=== PATIENT | male | born 1945 | race Caucasian/White ===

== ENCOUNTER 2020-08-20 17:06 | Emergency (ER) | payer MEDICARE, OTHER ==
[2020-08-20] MEDS ORDERED: methylPREDNISolone SOD SUCCI 125 MG/2 ML VIAL IV STA (17:25)
[2020-08-20] MEDS ORDERED: ALBUTEROL HFA INHALER INHALATION STA (17:25)
--- NOTE | 2020-08-20 17:35 | ED ---
General Adult HPI - General Chief complaint: Shortness of Breath Stated complaint: sob/nausea Time Seen by Provider: 08/20/20 17:16 Source: patient, RN notes reviewed, old records reviewed Mode of arrival: wheelchair Limitations: no limitations - History of Present Illness Initial comments: 74-year-old male history of atrial fibrillation, asthma presenting with 5 days of worsening cough and dyspnea, cough productive of green sputum. Patient does have myalgias as well as nausea and vomiting. He denies fever. He denies a known exposure to coronavirus. He denies central chest pain. Denies lower extremity pain or swelling. - Related Data Previous Rx's Medication Instructions Recorded Albuterol Inhaler [Ventolin Hfa 2 puff INHALATION RT-QID #1 unit 08/20/20 Inhaler] Amoxicillin/Potassium Clav 1 tab PO Q12HR 10 Days #20 tab 08/20/20 [Augmentin 875-125 Tablet] Azithromycin [Zithromax Z-pack] 0 mg PO DIRECTED #6 tab 08/20/20 predniSONE 50 mg PO DAILY #5 tab 08/20/20 Allergies Allergy/AdvReac Type Severity Reaction Status Date / Time No Known Allergies Allergy Verified 08/20/20 17:15 Review of Systems ROS Statement: Those systems with pertinent positive or pertinent negative responses have been documented in the HPI. ROS Other: All systems not noted in ROS Statement are negative. Past Medical History Past Medical History: Atrial Fibrillation, Asthma, Diabetes Mellitus, Hyperlipidemia, Hypertension History of Any Multi-Drug Resistant Organisms: None Reported Past Surgical History: Prostate Surgery, Tonsillectomy Past Psychological History: No Psychological Hx Reported Smoking Status: Never smoker Past Alcohol Use History: None Reported Past Drug Use History: None Reported General Exam Limitations: no limitations General appearance: alert, in no apparent distress Head exam: Present: atraumatic, normocephalic Eye exam: Present: normal appearance, PERRL ENT exam: Present: normal exam Neck exam: Present: normal inspection. Absent: tenderness, meningismus Respiratory exam: Present: respiratory distress, wheezes, decreased breath sounds Cardiovascular Exam: Present: regular rate, irregular rhythm GI/Abdominal exam: Present: soft. Absent: distended, tenderness, guarding Extremities exam: Present: normal inspection, normal capillary refill. Absent: pedal edema Neurological exam: Present: alert, oriented X3, CN II-XII intact. Absent: motor sensory deficit Psychiatric exam: Present: normal affect, normal mood Skin exam: Present: warm, dry, intact. Absent: cyanosis, diaphoretic Course Vital Signs 08/20/20 17:09 Temperature 98.3 F Pulse Rate 66 Respiratory 24 Rate Blood Pressure 147/90 O2 Sat by Pulse 91 L Oximetry EKG Findings - EKG Comments: EKG Findings:: A. fib, rate is 64, QRS duration 88, QTC [address] segment elevation. Artifact on the baseline Medical Decision Making - Medical Decision Making 74-year-old year History of asthma, presenting with cough and dyspnea. Patient afebrile, stable vitals with the exception of mild hypoxia at 91%. He has diminished air entry bilaterally. Mild respiratory distress on initial e valuation. Chest x-ray, showing concern for a left sided pneumonia. He has a elevated white blood cell count 27,000, elevated CRP at 82.9. Mild lactic acid 3.0. He is given IV antibiotics, IV steroids, albuterol, IV fluids. I did initially plan to admit this patient for IV antibiotics, treatment of asthma exacerbation. Patient prefers to be discharged home. His agrees with discharge there is concern for virgilio coronavirus as the patient is currently negative for coronavirus. He's given IV antibiotics and IV steroids, he will be prescribed oral antibiotics and oral steroids as well as he will use his albuterol inhaler at home 4-6 times daily. I discussed case with Dr. Taylor who is his welding technician who will be able to see the patient on Sunday on an outpatient basis. - Lab Data Result diagrams: 08/20/20 17:27 08/20/20 17:27 Lab Results 08/20/20 08/20/20 08/20/20 Range/Units 17:27 17:27 17:27 WBC 27.4 H (3.8-10.6) k/uL RBC 4.37 (4.30-5.90) m/uL Hgb 14.8 (13.0-17.5) gm/dL Hct 44.1 (39.0-53.0) % MCV 100.7 H (80.0-100.0) fL MCH 33.8 (25.0-35.0) pg MCHC 33.5 (31.0-37.0) g/dL RDW 12.1 (11.5-15.5) % Plt Count 203 (150-450) k/uL MPV 7.8 Neutrophils % 87 % Lymphocytes % 5 % Monocytes % 5 % Eosinophils % 1 % Basophils % 1 % Neutrophils # 23.9 H (1.3-7.7) k/uL Lymphocytes # 1.5 (1.0-4.8) k/uL Monocytes # 1.4 H (0-1.0) k/uL Eosinophils # 0.2 (0-0.7) k/uL Basophils # 0.2 (0-0.2) k/uL PT 15.7 H (9.0-12.0) sec INR 1.6 H (<1.2) APTT 34.9 H (22.0-30.0) sec Sodium 137 (137-145) mmol/L Potassium 4.7 (3.5-5.1) mmol/L Chloride 103 (98-107) mmol/L Carbon Dioxide 24 (22-30) mmol/L Anion Gap 10 mmol/L BUN 11 (9-20) mg/dL Creatinine 0.93 (0.66-1.25) mg/dL Est GFR (CKD-EPI)AfAm >90 (>60 ml/min/1.73 sqM) Est GFR (CKD-EPI)NonAf 80 (>60 ml/min/1.73 sqM) Glucose 179 H (74-99) mg/dL Plasma Lactic Acid Gui (0.7-2.0) mmol/L Calcium 9.9 (8.4-10.2) mg/dL Total Bilirubin 1.9 H (0.2-1.3) mg/dL AST 39 (17-59) U/L ALT 28 (4-49) U/L Alkaline Phosphatase 59 (38-126) U/L C-Reactive Protein 82.9 H (<10.0) mg/L Total Protein 6.8 (6.3-8.2) g/dL Albumin 4.1 (3.5-5.0) g/dL Coronavirus (PCR) (Not Detectd) 08/20/20 08/20/20 Range/Units 17:27 17:27 WBC (3.8-10.6) k/uL RBC (4.30-5.90) m/uL Hgb (13.0-17.5) gm/dL Hct (39.0-53.0) % MCV (80.0-100.0) fL MCH (25.0-35.0) pg MCHC (31.0-37.0) g/dL RDW (11.5-15.5) % Plt Count (150-450) k/uL MPV Neutrophils % % Lymphocytes % % Monocytes % % Eosinophils % % Basophils % % Neutrophils # (1.3-7.7) k/uL Lymphocytes # (1.0-4.8) k/uL Monocytes # (0-1.0) k/uL Eosinophils # (0-0.7) k/uL Basophils # (0-0.2) k/uL PT (9.0-12.0) sec INR (<1.2) APTT (22.0-30.0) sec Sodium (137-145) mmol/L Potassium (3.5-5.1) mmol/L Chloride (98-107) mmol/L Carbon Dioxide (22-30) mmol/L Anion Gap mmol/L BUN (9-20) mg/dL Creatinine (0.66-1.25) mg/dL Est GFR (CKD-EPI)AfAm (>60 ml/min/1.73 sqM) Est GFR (CKD-EPI)NonAf (>60 ml/min/1.73 sqM) Glucose (74-99) mg/dL Plasma Lactic Acid Gui 3.0 H* (0.7-2.0) mmol/L Calcium (8.4-10.2) mg/dL Total Bilirubin (0.2-1.3) mg/dL AST (17-59) U/L ALT (4-49) U/L Alkaline Phosphatase (38-126) U/L C-Reactive Protein (<10.0) mg/L Total Protein (6.3-8.2) g/dL Albumin (3.5-5.0) g/dL Coronavirus (PCR) Not Detected (Not Detectd) Disposition Clinical Impression: Asthma with acute exacerbation, Pneumonia Disposition: HOME SELF-CARE Condition: Fair Instructions (If sedation given, give patient instructions): Asthma (ED), Bacterial Pneumonia (ED) Prescriptions: Amoxicillin/Potassium Clav [Augmentin 875-125 Tablet] 1 tab PO Q12HR 10 Days #20 tab predniSONE 50 mg PO DAILY #5 tab Albuterol Inhaler [Ventolin Hfa Inhaler] 2 puff INHALATION RT-QID #1 unit Azithromycin [Zithromax Z-pack] 0 mg PO DIRECTED #6 tab Is patient prescribed a controlled substance at d/c from ED?: No Referrals: Brock Phelps MD [Primary Care Provider] - 1-2 days Bg Taylor DO [Doctor of Osteopathic Medicine] - 1-2 days Time of Disposition: 18:47
[2020-08-20 17:56] LABS: Basophils # (A) 0.2 k/uL (0-0.2); Basophils % (A) 1 %; Eosinophils # (A) 0.2 k/uL (0-0.7); Eosinophils % (A) 1 %; HCT 44.1 % (39.0-53.0); HGB 14.8 gm/dL (13.0-17.5); Lymphocytes # (A) 1.5 k/uL (1.0-4.8); Lymphocytes % (A) 5 %; MCH 33.8 pg (25.0-35.0); MCHC 33.5 g/dL (31.0-37.0); MCV 100.7 fL (80.0-100.0); Mean Platelet Volume 7.8; Monocytes # (A) 1.4 k/uL (0-1.0); Monocytes % (A) 5 %; Neutrophils # (A) 23.9 k/uL (1.3-7.7); Neutrophils % (A) 87 %; Platelet Count 203 k/uL (150-450); RBC 4.37 m/uL (4.30-5.90); RDW 12.1 % (11.5-15.5); WBC 27.4 k/uL (3.8-10.6)
[2020-08-20] MEDS ORDERED: AZITHROMYCIN 500 MG in SODIUM CHLORIDE 0.9% 250 ML IVPB STA (18:02)
[2020-08-20] MEDS ORDERED: cefTRIAXone IN SWFI 1,000 MG/10 ML SYRINGE IVP STA (18:02)
[2020-08-20 18:08] LABS: ALT 28 U/L (4-49); AST 39 U/L (17-59); African American GFR (CKD) >90 (>60 ml/min/1.73 sqM); Albumin 4.1 g/dL (3.5-5.0); Alkaline Phosphatase 59 U/L (38-126); Anion Gap 10 mmol/L; Blood Urea Nitrogen 11 mg/dL (9-20); C Reactive Protein 82.9 mg/L (<10.0); Calcium 9.9 mg/dL (8.4-10.2); Carbon Dioxide 24 mmol/L (22-30); Chloride 103 mmol/L (98-107); Glucose 179 mg/dL (74-99); Non-African American GFR(CKD) 80 (>60 ml/min/1.73 sqM); Potassium 4.7 mmol/L (3.5-5.1); Sodium 137 mmol/L (137-145); Total Bilirubin 1.9 mg/dL (0.2-1.3); Total Protein 6.8 g/dL (6.3-8.2)
--- NOTE | 2020-08-20 18:08 | XR ---
EXAMINATION TYPE: XR chest 1V portable DATE OF EXAM: 08/20/2020 COMPARISON: 07/26/2012 HISTORY: Inability breathing TECHNIQUE: Single view FINDINGS: There is no heart failure nor confluent pneumonic infiltrate. Costophrenic angles are clear . There are chest leads. Bony thorax is intact. IMPRESSION: No active cardiopulmonary disease. Normal heart. No change.
[2020-08-20 18:13] LABS: INR 1.6 (<1.2); Partial Thromboplastin Time 34.9 sec (22.0-30.0); Prothrombin Time 15.7 sec (9.0-12.0)
[2020-08-20] MEDS ORDERED: SODIUM CHLORIDE 0.9% 500 ML 500 ML IV ONE (18:20)
[2020-08-20 18:45] VITALS: RESP 18
[2020-08-20 19:40] VITALS: BP 113/72; PULSE 70; TEMP 98.2
== END 2020-08-20 19:40 | disposition home or self-care (01) ==
LOC: EC 17:06
DX: J18.9 Pneumonia, unspecified organism (principal); J45.901 Unspecified asthma with (acute) exacerbation; Z20.828 Contact with and (suspected) exposure to other viral communicable diseases; E11.9 Type 2 diabetes mellitus without complications; I10 Essential (primary) hypertension; E78.5 Hyperlipidemia, unspecified; I48.91 Unspecified atrial fibrillation
CPT/HCPCS: 36415; 94640; 93005; 80053; 83605; 84484; 85025; 85610; 85730; 86140; 87635; 71045; 99285; 96365; 96375 ×2; J2930; J0456; J0696

== ENCOUNTER → 2022-01-24 | Outpatient (CLI) | payer MEDICARE, OTHER ==
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
== END | disposition home or self-care (01) ==
LOC: RADCTMAIN 10:36
PROVIDERS: ATTEND Internal Medicine Geriatric Medicine
DX: S09.90XA Unspecified injury of head, initial encounter (principal)
CPT/HCPCS: 70450

== ENCOUNTER → 2022-01-26 | Outpatient (CLI) | payer MEDICARE, OTHER ==
[2022-01-26 13:15] LABS: African American GFR (CKD) >90 (>60 ml/min/1.73 sqM); Blood Urea Nitrogen 10 mg/dL (9-20); Non-African American GFR(CKD) 83 (>60 ml/min/1.73 sqM)
--- NOTE | 2022-01-26 14:40 | CT ---
EXAMINATION TYPE: CT brain wo/w con DATE OF EXAM: 01/26/2022 COMPARISON: CT dated 01/24/2022 HISTORY: Pain in neck and head CT DLP: 2303 mGycm Automated exposure control for dose reduction was used. TECHNIQUE: CT scan of the brain is performed without and with IV contrast administration. FINDINGS: Grossly stable left medial occipital gyriform hyperdensity without significant mass effect or enhance ment. Stable suspected right middle cranial fossa anterior arachnoid cyst, indenting the adjacent por tion of the temporal lobe. No other significant change from the previous recent CT scan, kindly refer to detailed report. IMPRESSION: Stable left medial occipital gyriform hyperdensity which could represent acute subarachnoid hemorrhag e versus calcification. Another follow up by an unenhanced CT scan in 2-3 weeks is advised.
== END | disposition home or self-care (01) ==
LOC: RADCTMAIN 12:29
PROVIDERS: ATTEND Internal Medicine Geriatric Medicine
DX: M54.2 Cervicalgia (principal); R51.9 Headache, unspecified
CPT/HCPCS: 82565; 84520; 70470; 36415; Q9967

== ENCOUNTER → 2022-03-04 | Outpatient (CLI) | payer MEDICARE, OTHER ==
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
== END | disposition home or self-care (01) ==
LOC: RADMRIMAIN 08:08
PROVIDERS: ATTEND Neurological Surgery
DX: G93.9 Disorder of brain, unspecified (principal); M50.322 Other cervical disc degeneration at C5-C6 level; M99.71 Connective tissue and disc stenosis of intervertebral foramina of cervical region
CPT/HCPCS: 70553; 72141; A9585

== ENCOUNTER → 2022-06-20 | Outpatient (CLI) | payer MEDICARE, OTHER ==
--- NOTE | 2022-06-20 13:45 | XR ---
EXAMINATION TYPE: XR shoulder complete RT DATE OF EXAM: 06/20/2022 COMPARISON: NONE HISTORY: Pain TECHNIQUE: Three views are submitted. FINDINGS: The osseous structures are intact. There is no acute fracture or dislocation. Very mild hypertrophic changes AC joint distance. IMPRESSION: 1. No acute fracture. Very mild spurring along the inferior margin of the AC joint. If there is juanpablo rn for rotator cuff injury. Consider MRI follow-up.
== END | disposition home or self-care (01) ==
LOC: RADXRMAIN 13:22
PROVIDERS: ATTEND Internal Medicine Geriatric Medicine
DX: M25.511 Pain in right shoulder (principal)

== ENCOUNTER → 2023-04-04 | Outpatient (CLI) | payer MEDICARE, OTHER ==
--- NOTE | 2023-04-04 12:25 | XR ---
EXAMINATION TYPE: XR KUB DATE OF EXAM: 04/04/2023 HISTORY: Pain Comparison: None.Single KUB is submitted for interpretation. Findings: Right renal calculi: There is a 5.5 mm calculus right mid kidney. Right ureteral calculi: None Visualized. Left renal calculi: None Visualized. Left ureteral calculi: None Visualized. Pelvic calcifications: Post operative changes within the pelvis. Bowel gas pattern is unremarkable. No free air. No mass effects. IMPRESSION: 1. There is a 5.5 mm calculus right mid kidney.
== END | disposition home or self-care (01) ==
LOC: RADXRMAIN 11:48
PROVIDERS: ATTEND Urology
DX: N20.0 Calculus of kidney (principal)
CPT/HCPCS: 74018

== ENCOUNTER → 2023-05-04 | Outpatient (CLI) | payer MEDICARE, OTHER ==
[2023-05-04 16:48] LABS: African American GFR (CKD) >90 (>60 ml/min/1.73 sqM); Blood Urea Nitrogen 9 mg/dL (9-20); Non-African American GFR(CKD) >90 (>60 ml/min/1.73 sqM)
--- NOTE | 2023-05-07 21:49 | CT ---
EXAMINATION TYPE: CT abdomen pelvis w con CT DLP: 1021.9 mGycm, Automated exposure control for dose reduction was used. DATE OF EXAM: 05/04/2023 5:55 PM COMPARISON: None CLINICAL INDICATION:Male, 77 years old with history of N39.0 URINARY TRACT INFECTION, SITE NOT SPECIF IED; UTI TECHNIQUE: Axial CT of the abdomen and pelvis. Sagittal and coronal reformats were created on a [employer] workstation. Contrast used:100 CC mL of Isovue 300 with IV Contrast, (none if empty) Oral contrast used: with Oral Contrast (none if empty) FINDINGS: LOWER CHEST: Calcified granuloma in the right middle lobe. Mild emphysema changes. Coronary artery ca lcifications are present. ABDOMEN LIVER: Unremarkable GALLBLADDER AND BILE DUCTS: Unremarkable. PANCREAS: Unremarkable. SPLEEN: Unremarkable. ADRENAL GLANDS: Unremarkable. KIDNEYS AND URETERS: No hydronephrosis visualized there is a left 5 mm calculus at the ureterovesicul ar junction. No right renal calculi or hydronephrosis. PELVIS BLADDER: There is a sequela of prior suspected diverticulitis with fistula towards the bladder on the left. Series 8 image 50. Abscess sitting within the urinary bladder wall versus immediately adjacent measuring 3.9 x 2.5 cm. There is bladder wall thickening measuring up to 11 mm. Small fistulous trac t series 9 image 76 extending towards this abscess from the colon. There is gas within the bladder feliciano men. REPRODUCTIVE: Unremarkable. ABDOMEN & PELVIS STOMACH AND BOWEL: No evidence of bowel obstruction. Suspected sequela of prior diverticulitis as giancarlo cribed above. The appendix is normal. Scattered colonic diverticula present. PERITONEUM/RETROPERITONEUM: No evidence of pneumoperitoneum or free fluid. VASCULATURE: No evidence of aortic aneurysm. MUSCULOSKELETAL: No acute osseous abnormalities LYMPH NODES: No gross evidence for lymphadenopathy. SOFT TISSUE/ABDOMINAL WALL: Fat-containing inguinal hernias. IMPRESSION: 1. Findings most compatible with sequela of prior diverticulitis with fistulous tract extending from the sigmoid colon to the urinary bladder with abscess within the bladder wall/adjacent to the urinar y bladder with communication to the urinary bladder. Air is seen within the urinary bladder. Urologic consultation recommended. 2. At least partially obstructing left ureterovesicular junction 5 mm calculus. 3. Mild emphysema.
== END | disposition home or self-care (01) ==
LOC: RADCTMAIN 15:54
PROVIDERS: ATTEND Urology
DX: J43.9 Emphysema, unspecified (principal); N39.0 Urinary tract infection, site not specified; N20.1 Calculus of ureter
CPT/HCPCS: 82565; 84520; 74177; 36415; Q9967

== ENCOUNTER → 2023-05-25 | Outpatient (CLI) | payer MEDICARE, OTHER ==
[2023-05-25 21:04] LABS: Potassium 4.2 mmol/L (3.5-5.5)
[2023-05-25 21:17] LABS: Basophils # (A) 0.03 X 10*3/uL (0.00-0.10); Basophils % (A) 0.5 %; Eosinophils # (A) 0.27 X 10*3/uL (0.04-0.35); Eosinophils % (A) 4.1 %; HCT 44.9 % (39.6-50.0); HGB 14.3 d/dL (13.0-17.0); Lymphocytes # (A) 1.82 X 10*3/uL (0.90-5.00); Lymphocytes % (A) 27.7 %; MCH 31.7 pg (27.0-32.0); MCHC 31.8 d/dL (32.0-37.0); MCV 99.6 FL (80.0-97.0); Mean Platelet Volume 10.9 FL (9.5-12.2); Monocytes # (A) 1.36 X 10*3/uL (0.20-1.00); Monocytes % (A) 20.7 %; NRBC Per 100 WBC 0 X 10*3/uL (0.00-0.01); Neutrophils # (A) 3.06 X 10*3/uL (1.80-7.70); Neutrophils % (A) 46.5 %; Platelet Count 186 X 10*3/uL (140-440); RBC 4.51 X 10*6/uL (4.40-5.60); RDW 13.3 % (11.5-14.5); WBC 6.57 X 10*3/uL (4.50-10.00)
== END | disposition home or self-care (01) ==
LOC: LABWHC1 13:34
PROVIDERS: ATTEND Surgery
DX: Z01.818 Encounter for other preprocedural examination (principal); I48.91 Unspecified atrial fibrillation; K57.30 Diverticulosis of large intestine without perforation or abscess without bleeding; R94.31 Abnormal electrocardiogram [ECG] [EKG]
CPT/HCPCS: 36415; 80051; 85025; 86850; 86900; 86901; 93005

== ENCOUNTER 2023-05-31 07:46 | Day surgery (SDC) | payer MEDICARE, OTHER ==
[2023-05-28 11:48] VITALS: BMI 25.8
[~2023-05-31 07:46] MED LIST: LACTATED RINGERS 1,000 ML IV SCH
[2023-05-31] MEDS ORDERED: LIDOCAINE 1% (10MG/ML) FOR IV START INTRADERMA ONE (08:11)
[2023-05-31 08:19] VITALS: RESP 16; TEMP 96.9
[2023-05-31] MEDS ORDERED: PROPOFOL 10 MG/ML 20 ML VIAL IV ONE (08:20)
[2023-05-31 08:25] LABS: Glucose,Whole Blood 121 mg/dL (70-110)
--- NOTE | 2023-05-31 08:30 | P.OP ---
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 He received IV sedation. Digital rectal exam was performed which revealed a few hemorrhoids. Flexible colonoscope was then placed anus passed with colon. The scope was passed beyond the sigmoid colon secondary to diverticulitis. Several diverticuli were seen. Scope was then withdrawn. Patient tolerated procedure well.
[2023-05-31 09:34] VITALS: BP 123/78; PULSE 68
== END 2023-05-31 09:49 | disposition home or self-care (01) ==
LOC: ORWHC2ENDO 07:46
PROVIDERS: ATTEND Surgery
DX: N32.1 Vesicointestinal fistula (principal); K57.32 Diverticulitis of large intestine without perforation or abscess without bleeding; K64.9 Unspecified hemorrhoids; I48.91 Unspecified atrial fibrillation; I10 Essential (primary) hypertension; E78.5 Hyperlipidemia, unspecified; J45.909 Unspecified asthma, uncomplicated; E11.9 Type 2 diabetes mellitus without complications; Z79.51 Long term (current) use of inhaled steroids; Z79.84 Long term (current) use of oral hypoglycemic drugs; Z79.01 Long term (current) use of anticoagulants; Z79.899 Other long term (current) drug therapy
CPT/HCPCS: 45330; J2704; 45378

== ENCOUNTER 2023-06-01 06:51 | Inpatient (IN) | payer MEDICARE, OTHER ==
[~2023-06-01 06:51] MED LIST changes: +ACETAMINOPHEN TAB 500 MG TAB PO PRN; +DEXAMETHASONE SOD PHOSPHATE 4 MG/ML 1 ML VIAL IV ONE; +HEPARIN SODIUM,PORCINE/PF 5,000 UNIT/0.5 ML SYRINGE SQ PRN; -LACTATED RINGERS 1,000 ML IV SCH; +LIDOCAINE 1% (10MG/ML) FOR IV START INTRADERMA PRN; +ONDANSETRON 4 MG/2 ML VIAL IVP ONE; +metroNIDAZOLE-NS PMX 500 MG in SALINE 1 100ML.BAG IVPB PRN
[2023-06-01] MEDS ORDERED: droPERidol 5 MG/2 ML VIAL IVP PRN (07:00)
[2023-06-01] MEDS ORDERED: HYDROmorphone 0.5 MG/0.5 ML SYRINGE IVP PRN (07:00)
[2023-06-01] MEDS: LACTATED RINGERS 1,000 ML IV SCH (07:22)
[2023-06-01 07:51] LABS: Glucose,Whole Blood 200 mg/dL (70-110)
[2023-06-01] MEDS ORDERED: ONDANSETRON 4 MG/2 ML VIAL IVP PRN ×2 (08:01→11:00)
[2023-06-01] MEDS ORDERED: NALBUPHINE 10 MG/ML (10 ML MDV) IV PRN (08:01)
[2023-06-01] MEDS ORDERED: NALOXONE 0.4 MG/ML 1 ML VIAL IV PRN (08:01)
[2023-06-01] MEDS ORDERED: MIDAZOLAM 2 MG/2 ML VIAL IVP ONE (08:06)
[2023-06-01] MEDS ORDERED: fentaNYL (PF) 50 MCG/ML 2 ML AMP IVP ONE (08:06)
--- NOTE | 2023-06-01 08:30 | P.ANPRN ---
Procedure Note - Anesthesia - Epidural/Spinal Epidural Date of Procedure: 06/01/23 Procedure Start Time: : Procedure Stop Time: :24 Location of Patient: PreOp Indication: Acute Post-Operative Pain, Requested by Surgeon (Dr Esparza) Sedation Type: Sedate with meaningful contact maintained Preparation: Sterile Dressing Number of Attempts: 2 Position: Sitting Catheter Depth at Skin (cm): 12 Catheter: Indwelling Needle Guage: 18 Injectate: negative test dose Blood Aspirated: No Pain Paresthesia on Injection Noted: No Events: Uneventful and Well Tolerated
[2023-06-01] MEDS ORDERED: GLYCOPYRROLATE 0.2 MG/ML 2 ML VIAL ONE (09:33)
[2023-06-01] MEDS ORDERED: PROPOFOL 10 MG/ML 20 ML VIAL IV ONE (09:33)
[2023-06-01] MEDS ORDERED: LIDOCAINE 1% INJ 10MG/ML (20 ML MDV) ONE (09:33)
[2023-06-01] MEDS ORDERED: ROCURONIUM 10 MG/ML (5 ML VIAL) IV ONE (09:33)
[2023-06-01] MEDS ORDERED: NEOSTIGMINE 1 MG/ML 10 ML VIAL ONE (09:33)
[2023-06-01] MEDS ORDERED: fentaNYL (PF) 50 MCG/ML 2 ML AMP ONE (09:33)
[2023-06-01] MEDS ORDERED: LACTATED RINGERS 1,000 ML IV ONE (10:53)
[2023-06-01] MEDS ORDERED: HYDROmorphone 1 MG/ML 1 ML SYRINGE IVP PRN (11:00)
[2023-06-01] MEDS ORDERED: BENZOCAINE/MENTHOL LOZENG 1 EACH LOZENGE MUCOUS MEM PRN (11:00)
--- NOTE | 2023-06-01 11:00 | P.OP ---
Date of Procedure: 06/01/23 Preoperative Diagnosis: Colovesical fistula Diverticulitis Postoperative Diagnosis: Colovesical fistula Diverticulitis Procedure(s) Performed: Low anterior resection Repair of colovesical fistula Anesthesia: MARIS Surgeon: Blane Esparza Estimated Blood Loss (ml): 25 Pathology: other (Sigmoid colon) Condition: stable Disposition: PACU Operative Findings: Colovesical fistula near the dome of bladder Description of Procedure: The patient's placed on the operating table in the supine position. He received general endotracheal tube anesthesia. He was then placed in dorsal 5 position. His abdomen was prepped and draped in usual sterile fashion. The abdomen was entered through low midline scar. The Bookwalter retractors placed a wound. The sigmoid colon was seen. The colon had an obvious colovesical fistula attached to the dome the bladder. This was taken down with sharp dissection. The bladder was then repaired using 2-0 Vicryl suture. At this point the left colon was mobilized by dividing the white line of Toldt's. An enterotomy was made on the colon was replaced the anvil for the 29 mm stapler within the colon. Once the anvil was placed in the colon the colon was then transected with a GI stapler. The anvil was then driven through the staple line. Next using the Enseal device the mesentery and; was divided. And then rectum was transected with the contour stapler. Next the entry level assistant manager placed the EEA sizer patient anus. And then the 29 mm EEA stapler is placed patient anus. The spike for the stapler was then driven through the rectal staple line. The anvil was then connected stapler. Staple and closed and fired. 2 intact tissue rings were withdrawn from the stapler. The bowel was occluded with a clamp. And then the rectum was insufflated with air he had a rigid sigmoidoscope. There is no evidence of extravasation. This was checked under water. The abdomen was then irrigated. There is no bleeding seen. The fascia was then closed with looped #1 PDS suture. The skin was closed dolores. The previena 1 system was placed on the closed skin incision. Patient top she will was sent to recovery room in stable condition.
[2023-06-01] MEDS: ROPIVACAINE 250 MG, HYDROMORPHONE (PF) 5 MG in SODIUM CHLORIDE 0.9% 200 ML EPIDURAL PRN ×2 (11:04→14:11)
[2023-06-01 11:30] LABS: Glucose,Whole Blood 124 mg/dL (70-110)
[2023-06-01] MEDS: MORPHINE SULFATE 4 MG/ML SYRINGE IVP ONE ×2 (11:31→11:55)
[2023-06-01 16:39] LABS: Basophils % (A) 0 %; Eosinophils % (A) 0 %; HCT 40.9 % (39.0-53.0); HGB 13.5 gm/dL (13.0-17.5); Lymphocytes % (A) 7 %; MCH 33.1 pg (25.0-35.0); MCHC 32.9 g/dL (31.0-37.0); MCV 100.8 fL (80.0-100.0); Mean Platelet Volume 7.9; Monocytes % (A) 6 %; Neutrophils # (A) 13.5 k/uL (1.3-7.7); Neutrophils % (A) 87 %; Platelet Count 220 k/uL (150-450); RBC 4.06 m/uL (4.30-5.90); WBC 15.6 k/uL (3.8-10.6)
[2023-06-01 16:45] LABS: African American GFR (CKD) >90 (>60 ml/min/1.73 sqM); Anion Gap 7 mmol/L; Blood Urea Nitrogen 8 mg/dL (9-20); Carbon Dioxide 29 mmol/L (22-30); Chloride 104 mmol/L (98-107); Glucose 108 mg/dL (74-99); Non-African American GFR(CKD) >90 (>60 ml/min/1.73 sqM); Potassium 3.9 mmol/L (3.5-5.1); Sodium 140 mmol/L (137-145)
[2023-06-01] MEDS: HEPARIN SODIUM,PORCINE 5,000 UNIT/ML 1 ML VIAL SQ SCH (17:11)
[2023-06-01] MEDS: D5-0.45% NACL WITH KCL 20MEQ/L 1,000 ML IV SCH ×2 (17:11→22:17)
[2023-06-01 17:25] LABS: Glucose,Whole Blood 109 mg/dL (70-110)
[2023-06-01] MEDS ORDERED: ALBUTEROL NEBULIZED 2.5 MG/3 ML INHALATION PRN (20:17)
--- NOTE | 2023-06-01 20:18 | P.GSCN ---
History of Present Illness Consult date: 06/01/23 Reason for Consult: Colovesical fistula History of present illness: This is a 77-year-old male patient of Dr Medina that underwent a low anterior resection by Dr. Bush for diverticulitis and a colovesical fistula. Patient did require excision of the fistulous tract along the dome of the bladder and this was repaired by Dr. Bush. He was diagnosed with a colovesical fistula recently by Dr. Austin after he noticed pneumaturia and UTIs. He currently has a Mcintosh catheter draining clear yellow urine Review of Systems - Constitutional Denies fever, Denies weight loss - EENT Ears, nose, mouth and throat: Denies dysphagia - Cardiovascular Denies chest pain, Denies shortness of breath - Respiratory Denies cough, Denies 7 - Gastrointestinal Reports as per HPI - Neurological Denies headaches, Denies syncope Past Medical History Past Medical History: Atrial Fibrillation, Asthma, Diabetes Mellitus, Hyperlipidemia, Hypertension, Prostate Disorder Additional Past Medical History / Comment(s): diverticulitis "I have a small hole in my bowel", current tx for UTI,has problems with balance-fell February 2023- no assitive devices @ this time,prostate CA 2001-received radiation,has urinary leakage History of Any Multi-Drug Resistant Organisms: None Reported Past Surgical History: Cardiac Ablation, Prostate Surgery, Tonsillectomy Additional Past Surgical History / Comment(s): prostatectomy Past Anesthesia/Blood Transfusion Reactions: No Reported Reaction, Motion Sickness Additional Past Anesthesia/Blood Transfusion Reaction / Comm: no problems with prior blood transfusion 2001 Smoking Status: Former smoker - Past Family History Father Family Medical History: Cancer Additional Family Medical History / Comment(s): prostate Mother Family Medical History: No Reported History Medications and Allergies Home Medications Medication Instructions Recorded Confirmed Type Albuterol Inhaler [Ventolin Hfa 2 puff INHALATION RT-QID #1 unit 08/20/20 06/01/23 Rx Inhaler] ALPRAZolam [Xanax] 0.25 mg PO BID PRN 05/28/23 06/01/23 History Acetaminophen Tab [Tylenol] 500 mg PO BID PRN 05/28/23 06/01/23 History Cholecalciferol [Vitamin D3 (25 125 mcg PO DAILY 05/28/23 06/01/23 History Mcg = 1000 Iu)] Cyanocobalamin [Vitamin B-12] 500 mcg PO DAILY 05/28/23 06/01/23 History Fluticasone Propion/Salmeterol 2 puff INHALATION BID 05/28/23 06/01/23 History [Advair Hfa 230-21 Mcg Inhaler] Losartan [Cozaar] 25 mg PO QAM 05/28/23 06/01/23 History Montelukast Sodium 10 mg PO HS 05/28/23 06/01/23 History Rivaroxaban [Xarelto] 20 mg PO DAILY 05/28/23 06/01/23 History Vit C/E/Zn/Coppr/Lutein/Zeaxan 1 tab PO DAILY 05/28/23 06/01/23 History [Preservision Areds 2 Chew Tab] allopurinoL [Zyloprim] 300 mg PO DAILY 05/28/23 06/01/23 History carvediloL 25 mg PO QAM 05/28/23 06/01/23 History dilTIAZem HCL 30 mg PO BID 05/28/23 06/01/23 History metFORMIN HCL [Glucophage] 500 mg PO DAILY 05/28/23 06/01/23 History nitrofurantoin macrocrystaL 100 mg PO DAILY 05/28/23 06/01/23 History [Nitrofurantoin] methylPREDNISolone Dose Pack 4 mg PO DIRECTED 05/31/23 06/01/23 History [Medrol Dose Pack] Allergies Allergy/AdvReac Type Severity Reaction Status Date / Time No Known Allergies Allergy Verified 06/01/23 07:25 Surgical - Exam Vital Signs Temp Pulse Resp BP Pulse Ox 97.3 F L 88 18 121/68 98 06/01/23 07:22 06/01/23 07:22 06/01/23 07:22 06/01/23 07:22 06/01/23 07:22 - General no distress, no pain - Eyes normal ocular movement, no pale - ENT normal nares, normal mucosa - Respiratory normal expansion, normal respiratory effort - Abdomen Abdomen: soft, non tender, no distended - Psychiatric oriented to time, oriented to person, oriented to place Results - Labs 06/01/23 16:02 06/01/23 16:02 Abnormal Lab Results - Last 24 Hours (Table) 06/01/23 06/01/23 06/01/23 Range/Units 07:41 11:19 16:02 WBC 15.6 H (3.8-10.6) k/uL RBC 4.06 L (4.30-5.90) m/uL MCV 100.8 H (80.0-100.0) fL Neutrophils # 13.5 H (1.3-7.7) k/uL BUN (9-20) mg/dL Creatinine (0.66-1.25) mg/dL Glucose (74-99) mg/dL POC Glucose (mg/dL) 200 H 124 H (70-110) mg/dL 06/01/23 Range/Units 16:02 WBC (3.8-10.6) k/uL RBC (4.30-5.90) m/uL MCV (80.0-100.0) fL Neutrophils # (1.3-7.7) k/uL BUN 8 L (9-20) mg/dL Creatinine 0.53 L (0.66-1.25) mg/dL Glucose 108 H (74-99) mg/dL POC Glucose (mg/dL) (70-110) mg/dL Diabetes panel 06/01/23 Range/Units 16:02 Sodium 140 (137-145) mmol/L Potassium 3.9 (3.5-5.1) mmol/L Chloride 104 (98-107) mmol/L Carbon Dioxide 29 (22-30) mmol/L BUN 8 L (9-20) mg/dL Creatinine 0.53 L (0.66-1.25) mg/dL Glucose 108 H (74-99) mg/dL Calcium 9.0 (8.4-10.2) mg/dL Calcium panel 06/01/23 Range/Units 16:02 Calcium 9.0 (8.4-10.2) mg/dL Pituitary panel 06/01/23 Range/Units 16:02 Sodium 140 (137-145) mmol/L Potassium 3.9 (3.5-5.1) mmol/L Chloride 104 (98-107) mmol/L Carbon Dioxide 29 (22-30) mmol/L BUN 8 L (9-20) mg/dL Creatinine 0.53 L (0.66-1.25) mg/dL Glucose 108 H (74-99) mg/dL Calcium 9.0 (8.4-10.2) mg/dL Adrenal panel 06/01/23 Range/Units 16:02 Sodium 140 (137-145) mmol/L Potassium 3.9 (3.5-5.1) mmol/L Chloride 104 (98-107) mmol/L Carbon Dioxide 29 (22-30) mmol/L BUN 8 L (9-20) mg/dL Creatinine 0.53 L (0.66-1.25) mg/dL Glucose 108 H (74-99) mg/dL Calcium 9.0 (8.4-10.2) mg/dL Assessment and Plan Assessment: This is a 77-year-old male with history of colovesical fistula underwent low anterior resection and bladder repair excision of the fistulous tract by Dr. Esparza today. From urology standpoint recommend keeping the catheter for 7-10 days, based on the size of the bladder repair, if it's a fairly large defect recommending also obtaining a cystogram prior to removing the catheter. from the operative notes it was not clear the size of the bladder defect
[2023-06-01] MEDS ORDERED: DEXTROSE 50% SYRINGE 50 ML IVP PRN ×2 (20:19)
[2023-06-01 20:58] LABS: Glucose,Whole Blood 139 mg/dL (70-110)
--- NOTE | 2023-06-01 21:48 | P.CONS ---
History of Present Illness - Reason for Consult Consult date: 06/01/23 Medical management - Chief Complaint Status post low anterior section and repair of colovesical fistula. - History of Present Illness Patient is a 77-year-old male with a past medical history of asthma, chronic atrial fibrillation with ablation, on anticoagulation with Xarelto, diabetes type 2 [id number], hypertension, hyperlipidemia, history of prostate cancer in 2001 status postradiation and prior history of smoking was recently found to have colovesical fistula due to pneumaturia and also frequent urinary tract infections. Patient is status post low anterior resection along with repair of colovesical fistula. Postoperative day 0. Patient is currently resting in bed. Pain is controlled. Patient is on pain pump. No complaints of chest pain or shortness of breath. No cough or sputum production. No complaints of nausea. Laboratory data showed WBC 15.6 hemoglobin 13.5 and platelets 220 and MCV 100.8 BUN 8 and creatinine 0.53 sodium 140 and potassium 3.9 blood sugar is 108. Calcium 9.0. Review of Systems Constitutional: Patient denies any fever or chills . no Generalized weakness. Abdomen: Patient denied any nausea or vomiting or abd. pain Cardiovascular: Patient denies any chest pain or short of breath no palpitations. Respiratory: patient denied any cough . no sputum production. No shortness of breath Neurologic: Patient denied any numbness or tingling headache. Musculoskeletal: Patient denies any complaints of joint swelling or deformity. Skin: Negative Psychiatric: Negative Endocrine: No heat or cold intolerance. No recent weight gain. Genitourinary: No dysuria or hematuria. All other 14 point ROS negative except the above Past Medical History Past Medical History: Atrial Fibrillation, Asthma, Diabetes Mellitus, Hyperlipidemia, Hypertension, Prostate Disorder Additional Past Medical History / Comment(s): diverticulitis "I have a small hole in my bowel", current tx for UTI,has problems with balance-fell February 2023- no assitive devices @ this time,prostate CA 2001-received radiation,has urinary leakage History of Any Multi-Drug Resistant Organisms: None Reported Past Surgical History: Cardiac Ablation, Prostate Surgery, Tonsillectomy Additional Past Surgical History / Comment(s): prostatectomy Past Anesthesia/Blood Transfusion Reactions: No Reported Reaction, Motion Sickness Additional Past Anesthesia/Blood Transfusion Reaction / Comm: no problems with prior blood transfusion 2001 Smoking Status: Former smoker - Past Family History Father Family Medical History: Cancer Additional Family Medical History / Comment(s): prostate Mother Family Medical History: No Reported History Medications and Allergies Home Medications Medication Instructions Recorded Confirmed Type Albuterol Inhaler [Ventolin Hfa 2 puff INHALATION RT-QID #1 unit 08/20/20 06/01/23 Rx Inhaler] ALPRAZolam [Xanax] 0.25 mg PO BID PRN 05/28/23 06/01/23 History Acetaminophen Tab [Tylenol] 500 mg PO BID PRN 05/28/23 06/01/23 History Cholecalciferol [Vitamin D3 (25 125 mcg PO DAILY 05/28/23 06/01/23 History Mcg = 1000 Iu)] Cyanocobalamin [Vitamin B-12] 500 mcg PO DAILY 05/28/23 06/01/23 History Fluticasone Propion/Salmeterol 2 puff INHALATION BID 05/28/23 06/01/23 History [Advair Hfa 230-21 Mcg Inhaler] Losartan [Cozaar] 25 mg PO QAM 05/28/23 06/01/23 History Montelukast Sodium 10 mg PO HS 05/28/23 06/01/23 History Rivaroxaban [Xarelto] 20 mg PO DAILY 05/28/23 06/01/23 History Vit C/E/Zn/Coppr/Lutein/Zeaxan 1 tab PO DAILY 05/28/23 06/01/23 History [Preservision Areds 2 Chew Tab] allopurinoL [Zyloprim] 300 mg PO DAILY 05/28/23 06/01/23 History carvediloL 25 mg PO QAM 05/28/23 06/01/23 History dilTIAZem HCL 30 mg PO BID 05/28/23 06/01/23 History metFORMIN HCL [Glucophage] 500 mg PO DAILY 05/28/23 06/01/23 History nitrofurantoin macrocrystaL 100 mg PO DAILY 05/28/23 06/01/23 History [Nitrofurantoin] methylPREDNISolone Dose Pack 4 mg PO DIRECTED 05/31/23 06/01/23 History [Medrol Dose Pack] Allergies Allergy/AdvReac Type Severity Reaction Status Date / Time No Known Allergies Allergy Verified 06/01/23 07:25 Physical Exam Vitals: Vital Signs Temp Pulse Pulse Resp BP BP BP 06/01/23 20:00 97.5 F L 93 16 127/59 06/01/23 14:45 97.6 F 90 16 134/86 06/01/23 14:05 87 16 137/74 06/01/23 13:34 95 16 137/79 06/01/23 13:04 85 16 135/85 06/01/23 12:49 85 16 129/73 06/01/23 12:34 83 16 131/71 06/01/23 12:19 87 16 132/77 06/01/23 11:49 94 16 159/71 06/01/23 11:34 95 18 158/98 06/01/23 11:19 90 18 175/87 06/01/23 11:04 97.4 F L 94 16 169/106 06/01/23 08:30 74 18 113/63 06/01/23 07:22 97.3 F L 88 18 121/68 Pulse Ox 06/01/23 20:00 94 L 06/01/23 14:45 91 L 06/01/23 14:05 95 06/01/23 13:34 99 06/01/23 13:04 95 06/01/23 12:49 96 06/01/23 12:34 92 L 06/01/23 12:19 99 06/01/23 11:49 98 06/01/23 11:34 100 06/01/23 11:19 100 06/01/23 11:04 96 06/01/23 08:30 97 06/01/23 07:22 98 Intake and Output 06/01/23 06/01/23 06/01/23 06:59 14:59 22:59 Intake Total 1976 Output Total 175 Balance 1802 Intake: IV 1976 Output: Urine 125 Estimated Blood Loss 50 Other: Weight 76.9 kg PHYSICAL EXAMINATION: Patient is lying in the bed,, no acute distress, awake alert and oriented.. HEENT: Normocephalic. Neck is supple. Pupils reactive. Nostrils clear. Oral cavity is moist. Neck reveals no JVD, carotid bruits, or thyromegaly. CHEST EXAMINATION: Trachea is central. Symmetrical expansion. Bibasilar diminished sounds. No wheezing or rhonchi.. CARDIAC: Normal S1, S2 with no gallops. No murmurs ABDOMEN: Soft. Bowel sounds diminished. Surgical site is bandaged.. No organomegaly. No abdominal bruits. No guarding or rigidity. Extremities: reveal no edema. No clubbing or cyanosis Neurologically awake, alert, oriented x3 with well-coordinated movements. No focal deficits noted Skin: No rash or skin lesions. Psychiatric: Coperative. Nonsuicidal, Musculoskeletal: No joint swelling or deformity. Normal range of motion. Results CBC & Chem 7: 06/01/23 16:02 06/01/23 16:02 Labs: Abnormal Lab Results - Last 24 Hours (Table) 06/01/23 06/01/23 06/01/23 Range/Units 07:41 11:19 16:02 WBC 15.6 H (3.8-10.6) k/uL RBC 4.06 L (4.30-5.90) m/uL MCV 100.8 H (80.0-100.0) fL Neutrophils # 13.5 H (1.3-7.7) k/uL BUN (9-20) mg/dL Creatinine (0.66-1.25) mg/dL Glucose (74-99) mg/dL POC Glucose (mg/dL) 200 H 124 H (70-110) mg/dL 06/01/23 06/01/23 Range/Units 16:02 20:55 WBC (3.8-10.6) k/uL RBC (4.30-5.90) m/uL MCV (80.0-100.0) fL Neutrophils # (1.3-7.7) k/uL BUN 8 L (9-20) mg/dL Creatinine 0.53 L (0.66-1.25) mg/dL Glucose 108 H (74-99) mg/dL POC Glucose (mg/dL) 139 H (70-110) mg/dL Assessment and Plan Assessment: Status post low anterior resection and repair of colovesical fistula. Postoperative day 0 Leukocytosis likely due to postsurgical inflammation Chronic atrial fibrillation with prior history of ablation and currently on anticoagulation with Xarelto. Diabetes type 2 [id number] History of frequent urinary tract infections. On nitrofurantoin prophylactic dose. Hypertension Hyperlipidemia History of prostate cancer in 2002 status postradiation Prior history of smoking Asthma not in exacerbation Macrocytosis DVT prophylaxis patient is currently on heparin subcu Plan: Patient is being continued on pain management. Encourage with incentive spirometry. Patient is on Coreg 25 mg every morning and Cardizem 30 mg twice daily for rate control. Patient will be started back on Xarelto once cleared by surgery. Continue with insulin sliding scale. Patient is on IV hydration with D5 half-normal at 125 cc/h. Patient is being continued on Mcintosh catheter. Continue with albuterol relation, Advair and Singulair. Continue other home medic follow-up closely. Follow-up CBC and BMP tomorrow. We will continue to follow and further recommendations based on the clinical course. Thank you kindly for your consult. Time with Patient: Greater than 30
[2023-06-01] MEDS: INSULIN ASPART (NovoLOG) 100 UNIT/ML VIAL SQ SCH (22:01)
[2023-06-01] MEDS: FAMOTIDINE 20 MG/2 ML VIAL IV SCH (22:16)
[2023-06-01] MEDS: MONTELUKAST 10 MG TAB PO SCH (22:20)
[2023-06-02] MEDS: SYMBICORT 160-4.5 MCG INHALER INHALATION SCH ×3 (01:00→18:52)
[2023-06-02] MEDS: HEPARIN SODIUM,PORCINE 5,000 UNIT/ML 1 ML VIAL SQ SCH ×3 (01:02→16:31)
[2023-06-02] MEDS: LACTATED RINGERS 1,000 ML IV SCH (04:42)
[2023-06-02] MEDS: D5-0.45% NACL WITH KCL 20MEQ/L 1,000 ML IV SCH ×3 (05:52→21:33)
[2023-06-02 07:36] LABS: Basophils % (A) 0 %; Eosinophils % (A) 0 %; HCT 40.7 % (39.0-53.0); Lymphocytes # (A) 1.3 k/uL (1.0-4.8); Lymphocytes % (A) 13 %; MCH 32.6 pg (25.0-35.0); MCHC 31.9 g/dL (31.0-37.0); MCV 102.2 fL (80.0-100.0); Macrocytosis Slight; Mean Platelet Volume 7.9; Monocytes % (A) 10 %; Neutrophils # (A) 7.4 k/uL (1.3-7.7); Neutrophils % (A) 76 %; Platelet Count 193 k/uL (150-450); RBC 3.98 m/uL (4.30-5.90); WBC 9.8 k/uL (3.8-10.6)
[2023-06-02 08:01] LABS: African American GFR (CKD) >90 (>60 ml/min/1.73 sqM); Anion Gap 6 mmol/L; Blood Urea Nitrogen 5 mg/dL (9-20); Calcium 8.5 mg/dL (8.4-10.2); Carbon Dioxide 29 mmol/L (22-30); Chloride 104 mmol/L (98-107); Glucose 131 mg/dL (74-99); Non-African American GFR(CKD) >90 (>60 ml/min/1.73 sqM); Potassium 4.2 mmol/L (3.5-5.1); Sodium 139 mmol/L (137-145)
[2023-06-02] MEDS: DILTIAZEM ORAL 30 MG TAB PO SCH ×2 (08:44→21:16)
[2023-06-02] MEDS: carvediloL 12.5 MG TAB PO SCH (08:44)
[2023-06-02] MEDS: allopurinoL 300 MG TAB PO SCH (08:44)
[2023-06-02] MEDS: FAMOTIDINE 20 MG/2 ML VIAL IV SCH ×2 (08:44→21:16)
[2023-06-02] MEDS: ALVIMOPAN 12 MG CAPSULE PO SCH ×2 (08:44→21:16)
[2023-06-02 08:56] LABS: Glucose,Whole Blood 127 mg/dL (70-110)
[2023-06-02] MEDS: INSULIN ASPART (NovoLOG) 100 UNIT/ML VIAL SQ SCH ×4 (10:04→21:25)
--- NOTE | 2023-06-02 10:20 | P.PN ---
Subjective Progress Note Date: 06/02/23 No acute overnight events, urine remains clear Objective - Vital Signs Vital signs: Vital Signs Temp 97.6 F 06/02/23 08:00 Pulse 95 06/02/23 08:00 Resp 18 06/02/23 08:00 BP 119/82 06/02/23 08:00 Pulse Ox 99 06/02/23 01:54 FiO2 Intake & Output 06/01/23 06/02/23 06/02/23 18:59 06:59 18:59 Intake Total 1976 96 Output Total 175 Balance 1802 96 Weight 76.9 kg Intake: IV 1976 Intake, IV Titration 96 Amount Ropivacaine 250 mg 96 Hydromorphone (Pf) 5 mg In Sodium Chloride 0.9% 200 ml @ Per Protocol EPIDURAL .Q0M PRN Rx#: [id number] Output: Urine 125 Estimated Blood Loss 50 Other: Voiding Method Indwelling Catheter Indwelling Catheter - Gastrointestinal General gastrointestinal: Present: soft. Absent: distended, tenderness - Labs CBC & Chem 7: 06/02/23 06:27 06/02/23 06:27 Labs: Abnormal Lab Results - Last 24 Hours (Table) 06/01/23 06/01/23 06/01/23 Range/Units 11:19 16:02 16:02 WBC 15.6 H (3.8-10.6) k/uL RBC 4.06 L (4.30-5.90) m/uL MCV 100.8 H (80.0-100.0) fL Neutrophils # 13.5 H (1.3-7.7) k/uL BUN 8 L (9-20) mg/dL Creatinine 0.53 L (0.66-1.25) mg/dL Glucose 108 H (74-99) mg/dL POC Glucose (mg/dL) 124 H (70-110) mg/dL 06/01/23 06/02/23 06/02/23 Range/Units 20:55 06:27 06:27 WBC (3.8-10.6) k/uL RBC 3.98 L (4.30-5.90) m/uL MCV 102.2 H (80.0-100.0) fL Neutrophils # (1.3-7.7) k/uL BUN 5 L (9-20) mg/dL Creatinine 0.61 L (0.66-1.25) mg/dL Glucose 131 H (74-99) mg/dL POC Glucose (mg/dL) 139 H (70-110) mg/dL 06/02/23 Range/Units 08:55 WBC (3.8-10.6) k/uL RBC (4.30-5.90) m/uL MCV (80.0-100.0) fL Neutrophils # (1.3-7.7) k/uL BUN (9-20) mg/dL Creatinine (0.66-1.25) mg/dL Glucose (74-99) mg/dL POC Glucose (mg/dL) 127 H (70-110) mg/dL Assessment and Plan Assessment: This is a 77-year-old male with history of colovesical fistula underwent low anterior resection and bladder repair excision of the fistulous tract by Dr. Esparza today. From urology standpoint recommend keeping the catheter for 7-10 days, based on the size of the bladder repair, if it's a fairly large defect recommending also obtaining a cystogram prior to removing the catheter. from the operative notes it was not clear the size of the bladder repair
[2023-06-02 12:22] LABS: Glucose,Whole Blood 135 mg/dL (70-110)
--- NOTE | 2023-06-02 13:21 | P.PN ---
Progress Note - Text Progress Note Date: 06/02/23 Postoperative day #1 status post low anterior resection ,epidural catheter placed for postoperative analgesia, patient doing well epidural site okay, patient currently on combination of epidural infusion solution of Ropivacaine 0.0625% and Dilaudid 20 g per mL the infusion rate at 8 ml per hour , patient had no motor deficit epidural site okay , vital signs stable ,VAS 3 /10 , Assessment and plan= post operative day #1 patient doing well ,pain well controlled , there is no anesthesia related complications
--- NOTE | 2023-06-02 15:17 | P.PN ---
Subjective Progress Note Date: 06/02/23 CHIEF COMPLAINT: Diverticulitis HISTORY OF PRESENT ILLNESS: The patient is a 77-year-old male with dive rticulitis and colovesical fistula. Status post takedown of colovesical fistula and colectomy. He is tolerating clear liquid and drinking pop. He is bloated. ROS: No reports of nausea and vomiting. No bowel movements. No fevers or chills. No new chest pain. No productive sputum PHYSICAL EXAM: VITAL SIGNS: Reviewed CONSTITUTIONAL: Well developed and in no acute distress. EYES: Conjuctivae without sclera icterus. Extraocular movements grossly intact. HEAD, EARS, NOSE, THROAT: Moist buccal mucosa. Head is atraumatic, normocephalic. Hears conversational speech. No nasal drainage. RESPIRATORY: Non-labored respirations and equal bilateral excursions. CARDIOVASCULAR: Palpable 2+ radial pulses. ABDOMEN: Abdominal distention. PREVENA intact. MUSCULOSKELETAL: No gross deformity of the lower extremities noted. No clubbing. No cyanosis. SKIN: Good skin turgor. Well perfused. NEUROLOGIC: Cranial nerves II through XII grossly intact. No focal or lateralizing signs. PSYCH: Appropriate affect. Alert and oriented to person, place and time. CLINICAL LABS: Reviewed. WBC normal 9.8. Hemoglobin normal at 13.0 ASSESSMENT: 1. Diverticulitis with colovesical fistula PLAN: 1. Continue clear liquid diet as he reports little appetite. 2. Start simethicone gas drops. 3. Ambulation encouraged. Objective - Vital Signs Vital signs: Vital Signs Temp 97.6 F 06/02/23 08:00 Pulse 95 06/02/23 08:00 Resp 18 06/02/23 08:00 BP 119/82 06/02/23 08:00 Pulse Ox 99 06/02/23 01:54 FiO2 Intake & Output 06/01/23 06/02/23 06/02/23 18:59 06:59 18:59 Intake Total 1976 96 180 Output Total 175 1600 Balance 1802 96 -1420 Weight 76.9 kg Intake: IV 1976 Intake, IV Titration 96 Amount Ropivacaine 250 mg 96 Hydromorphone (Pf) 5 mg In Sodium Chloride 0.9% 200 ml @ Per Protocol EPIDURAL .Q0M PRN Rx#: [id number] Oral 180 Output: Urine 125 1600 Uretheral (Mcintosh) 1600 Estimated Blood Loss 50 Other: Voiding Method Indwelling Catheter Indwelling Catheter - Labs CBC & Chem 7: 06/02/23 06:27 06/02/23 06:27 Labs: Abnormal Lab Results - Last 24 Hours (Table) 06/01/23 06/01/23 06/01/23 Range/Units 16:02 16:02 20:55 WBC 15.6 H (3.8-10.6) k/uL RBC 4.06 L (4.30-5.90) m/uL MCV 100.8 H (80.0-100.0) fL Neutrophils # 13.5 H (1.3-7.7) k/uL BUN 8 L (9-20) mg/dL Creatinine 0.53 L (0.66-1.25) mg/dL Glucose 108 H (74-99) mg/dL POC Glucose (mg/dL) 139 H (70-110) mg/dL 06/02/23 06/02/23 06/02/23 Range/Units 06:27 06:27 08:55 WBC (3.8-10.6) k/uL RBC 3.98 L (4.30-5.90) m/uL MCV 102.2 H (80.0-100.0) fL Neutrophils # (1.3-7.7) k/uL BUN 5 L (9-20) mg/dL Creatinine 0.61 L (0.66-1.25) mg/dL Glucose 131 H (74-99) mg/dL POC Glucose (mg/dL) 127 H (70-110) mg/dL
[2023-06-02] MEDS: ROPIVACAINE 250 MG, HYDROMORPHONE (PF) 5 MG in SODIUM CHLORIDE 0.9% 200 ML EPIDURAL PRN (17:23)
[2023-06-02] MEDS: SIMETHICONE 40 MG/0.6 ML DROPS 2,000 MG/30 ML BOTTLE PO SCH ×2 (17:23→21:17)
[2023-06-02 17:38] LABS: Glucose,Whole Blood 129 mg/dL (70-110)
[2023-06-02] MEDS: ACETAMINOPHEN TAB 500 MG TAB PO PRN (19:45)
[2023-06-02 20:07] LABS: Glucose,Whole Blood 166 mg/dL (70-110)
[2023-06-02] MEDS: MONTELUKAST 10 MG TAB PO SCH (21:16)
[2023-06-03] MEDS: HEPARIN SODIUM,PORCINE 5,000 UNIT/ML 1 ML VIAL SQ SCH ×4 (00:35→23:56)
[2023-06-03 07:22] LABS: Glucose,Whole Blood 185 mg/dL (70-110)
[2023-06-03] MEDS: LACTATED RINGERS 1,000 ML IV SCH (07:39)
[2023-06-03] MEDS: SYMBICORT 160-4.5 MCG INHALER INHALATION SCH ×2 (08:21→18:33)
[2023-06-03] MEDS: carvediloL 12.5 MG TAB PO SCH (08:31)
[2023-06-03] MEDS: SIMETHICONE 40 MG/0.6 ML DROPS 2,000 MG/30 ML BOTTLE PO SCH ×4 (08:32→21:45)
[2023-06-03] MEDS: DILTIAZEM ORAL 30 MG TAB PO SCH ×2 (08:32→21:42)
[2023-06-03] MEDS: allopurinoL 300 MG TAB PO SCH (08:32)
[2023-06-03] MEDS: FAMOTIDINE 20 MG/2 ML VIAL IV SCH ×2 (08:32→21:42)
[2023-06-03] MEDS: INSULIN ASPART (NovoLOG) 100 UNIT/ML VIAL SQ SCH ×4 (08:32→21:39)
[2023-06-03] MEDS: D5-0.45% NACL WITH KCL 20MEQ/L 1,000 ML IV SCH ×2 (11:06→16:00)
[2023-06-03 12:21] LABS: Glucose,Whole Blood 184 mg/dL (70-110)
--- NOTE | 2023-06-03 15:40 | P.PN ---
Subjective Progress Note Date: 06/03/23 CHIEF COMPLAINT: Diverticulitis HISTORY OF PRESENT ILLNESS: The patient is a 77-year-old male with dive rticulitis and colovesical fistula. Status post takedown of colovesical fistula and colectomy. His abdominal distention is resolved with simethicone. He is still on liquids. He had a bowel movement later yesterday evening. ROS: No reports of nausea and vomiting. No fevers or chills. No new chest pain. No productive sputum PHYSICAL EXAM: VITAL SIGNS: Reviewed CONSTITUTIONAL: Well developed and in no acute distress. EYES: Conjuctivae without sclera icterus. Extraocular movements grossly intact. HEAD, EARS, NOSE, THROAT: Moist buccal mucosa. Head is atraumatic, normocephalic. Hears conversational speech. No nasal drainage. RESPIRATORY: Non-labored respirations and equal bilateral excursions. CARDIOVASCULAR: Palpable 2+ radial pulses. ABDOMEN: Nondistended. PREVENA intact. MUSCULOSKELETAL: No gross deformity of the lower extremities noted. No clubbing. No cyanosis. SKIN: Good skin turgor. Well perfused. NEUROLOGIC: Cranial nerves II through XII grossly intact. No focal or lateralizing signs. PSYCH: Appropriate affect. Alert and oriented to person, place and time. CLINICAL LABS: Reviewed. BSG 180s ASSESSMENT: 1. Diverticulitis with colovesical fistula PLAN: 1. Advance diet to low fiber' Objective - Vital Signs Vital signs: Vital Signs Temp 97.6 F 06/03/23 12:20 Pulse 69 06/03/23 12:20 Resp 18 06/03/23 12:20 BP 131/79 06/03/23 12:20 Pulse Ox 97 06/03/23 12:20 FiO2 Intake & Output 06/02/23 06/03/23 06/03/23 18:59 06:59 18:59 Intake Total 360 Output Total 2500 1200 Balance -2140 -1200 Intake: Oral 360 Output: Urine 2500 1200 Uretheral (Mcintosh) 2500 Other: Voiding Method Indwelling Catheter Indwelling Catheter Indwelling Catheter # Bowel Movements 0 1 - Labs CBC & Chem 7: 06/02/23 06:27 06/02/23 06:27 Labs: Abnormal Lab Results - Last 24 Hours (Table) 06/02/23 06/02/23 06/03/23 Range/Units 17:36 20:03 07:21 POC Glucose (mg/dL) 129 H 166 H 185 H (70-110) mg/dL 06/03/23 Range/Units 12:20 POC Glucose (mg/dL) 184 H (70-110) mg/dL
--- NOTE | 2023-06-03 16:27 | P.PN ---
Progress Note - Text Progress Note Date: 06/03/23 Postoperative day #2 status post low anterior resection ,epidural catheter placed for postoperative analgesia, patient doing well epidural site okay, patient currently on combination of epidural infusion solution of Ropivacaine 0.0625% and Dilaudid 20 g per mL the infusion rate at 8 ml per hour , patient had no motor deficit epidural site okay , vital signs stable ,VAS 3 /10 , Assessment and plan= post operative day #2 patient doing well ,pain well controlled , there is no anesthesia related complications
[2023-06-03] MEDS ORDERED: FUROSEMIDE 10 MG/ML 2 ML VIAL IV ONE (16:29)
[2023-06-03] MEDS: ROPIVACAINE 250 MG, HYDROMORPHONE (PF) 5 MG in SODIUM CHLORIDE 0.9% 200 ML EPIDURAL PRN (16:50)
[2023-06-03 17:05] LABS: Glucose,Whole Blood 173 mg/dL (70-110)
[2023-06-03 20:11] LABS: Glucose,Whole Blood 134 mg/dL (70-110)
[2023-06-03] MEDS: MONTELUKAST 10 MG TAB PO SCH (21:42)
--- NOTE | 2023-06-04 00:24 | P.PN ---
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 Patient is status post low anterior resection along with repair of colovesical fistula. Postoperative day 0. Patient is currently resting in bed. Pain is controlled. Patient is on pain pump. No complaints of chest pain or shortness of breath. No cough or sputum production. No complaints of nausea. Laboratory data showed WBC 15.6 hemoglobin 13.5 and platelets 220 and MCV 100.8 BUN 8 and creatinine 0.53 sodium 140 and potassium 3.9 blood sugar is 108. Calcium 9.0. 06/02/2023 Patient is currently lying in bed. Awake alert and oriented x3. No complaints of chest pain or shortness of breath. Abdominal pain is much improved. No cough or sputum production. Patient was started on clear liquid diet. No bowel movement yet. Patient has been afebrile. Laboratory data showed WBC 9.8 hemoglobin 13.0 and platelets 193, MCV 102.2, sodium 139 potassium 4.2 chloride 104 bicarb is 29 BUN 5 and creatinine 0.62 and A1c 4.8. B12 level is 1628. Current medications reviewed. Objective - Vital Signs Vital signs: Vital Signs Temp 97.6 F 06/02/23 08:00 Pulse 95 06/02/23 08:00 Resp 18 06/02/23 08:00 BP 119/82 06/02/23 08:00 Pulse Ox 99 06/02/23 01:54 FiO2 Intake & Output 06/01/23 06/02/23 06/02/23 18:59 06:59 18:59 Intake Total 1976 96 180 Output Total 175 1600 Balance 1802 96 -1420 Weight 76.9 kg Intake: IV 1976 Intake, IV Titration 96 Amount Ropivacaine 250 mg 96 Hydromorphone (Pf) 5 mg In Sodium Chloride 0.9% 200 ml @ Per Protocol EPIDURAL .Q0M PRN Rx#: [id number] Oral 180 Output: Urine 125 1600 Uretheral (Mcintosh) 1600 Estimated Blood Loss 50 Other: Voiding Method Indwelling Catheter Indwelling Catheter - Exam PHYSICAL EXAMINATION: Patient is lying in the bed,, no acute distress, awake alert and oriented.. HEENT: Normocephalic. Neck is supple. Pupils reactive. Nostrils clear. Oral cavity is moist. Neck reveals no JVD, carotid bruits, or thyromegaly. CHEST EXAMINATION: Trachea is central. Symmetrical expansion. Bibasilar diminished sounds. No wheezing or rhonchi.. CARDIAC: Normal S1, S2 with no gallops. No murmurs ABDOMEN: Soft. Bowel sounds diminished. Surgical site is bandaged.. No organomegaly. No abdominal bruits. No guarding or rigidity. Extremities: reveal no edema. No clubbing or cyanosis Neurologically awake, alert, oriented x3 with well-coordinated movements. No focal deficits noted Skin: No rash or skin lesions. Psychiatric: Coperative. Nonsuicidal, Musculoskeletal: No joint swelling or deformity. Normal range of motion. - Labs CBC & Chem 7: 06/02/23 06:27 06/02/23 06:27 Labs: Abnormal Lab Results - Last 24 Hours (Table) 06/01/23 06/01/23 06/01/23 Range/Units 16:02 16:02 20:55 WBC 15.6 H (3.8-10.6) k/uL RBC 4.06 L (4.30-5.90) m/uL MCV 100.8 H (80.0-100.0) fL Neutrophils # 13.5 H (1.3-7.7) k/uL BUN 8 L (9-20) mg/dL Creatinine 0.53 L (0.66-1.25) mg/dL Glucose 108 H (74-99) mg/dL POC Glucose (mg/dL) 139 H (70-110) mg/dL 06/02/23 06/02/23 06/02/23 Range/Units 06:27 06:27 08:55 WBC (3.8-10.6) k/uL RBC 3.98 L (4.30-5.90) m/uL MCV 102.2 H (80.0-100.0) fL Neutrophils # (1.3-7.7) k/uL BUN 5 L (9-20) mg/dL Creatinine 0.61 L (0.66-1.25) mg/dL Glucose 131 H (74-99) mg/dL POC Glucose (mg/dL) 127 H (70-110) mg/dL 06/02/23 Range/Units 12:21 WBC (3.8-10.6) k/uL RBC (4.30-5.90) m/uL MCV (80.0-100.0) fL Neutrophils # (1.3-7.7) k/uL BUN (9-20) mg/dL Creatinine (0.66-1.25) mg/dL Glucose (74-99) mg/dL POC Glucose (mg/dL) 135 H (70-110) mg/dL Assessment and Plan Assessment: Status post low anterior resection and repair of colovesical fistula. Postoperative day 1 Leukocytosis likely due to postsurgical inflammation, resolved Chronic atrial fibrillation with prior history of ablation and currently on anticoagulation with Xarelto. Diabetes type 2 [id number] History of frequent urinary tract infections. On nitrofurantoin prophylactic dose. Hypertension Hyperlipidemia History of prostate cancer in 2001 status postradiation Prior history of smoking Asthma not in exacerbation Macrocytosis DVT prophylaxis patient is currently on heparin subcu Plan: Patient is being continued on pain management. Encourage with incentive spirometry. Patient is on Coreg 25 mg every morning and Cardizem 30 mg twice daily for rate control. Patient will be started back on Xarelto once cleared by surgery. Continue with insulin sliding scale. Patient is on IV hydration with D5 half-normal at 125 cc/h. Patient is being continued on Mcintosh catheter. Continue with albuterol relation, Advair and Singulair. Continue other home medic follow-up closely. Follow-up CBC and BMP tomorrow. We will continue to follow and further recommendations based on the clinical course. Thank you kindly for your consult.
--- NOTE | 2023-06-04 00:26 | P.PN ---
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 Patient is status post low anterior resection along with repair of colovesical fistula. Patient is currently resting in bed. Pain is controlled. Patient is on pain pump. No complaints of chest pain or shortness of breath. No cough or sputum production. No complaints of nausea. Laboratory data showed WBC 15.6 hemoglobin 13.5 and platelets 220 and MCV 100.8 BUN 8 and creatinine 0.53 sodium 140 and potassium 3.9 blood sugar is 108. Calcium 9.0. 06/02/2023 Patient is currently lying in bed. Awake alert and oriented x3. No complaints of chest pain or shortness of breath. Abdominal pain is much improved. No cough or sputum production. Patient was started on clear liquid diet. No bowel movement yet. Patient has been afebrile. Laboratory data showed WBC 9.8 hemoglobin 13.0 and platelets 193, MCV 102.2, sodium 139 potassium 4.2 chloride 104 bicarb is 29 BUN 5 and creatinine 0.62 and A1c 4.8. B12 level is 1628. 06/03/2023 Patient is currently able to sit on the side of the bed. Awake alert and oriented x3. No complaints of chest pain or shortness of breath. No complaints of abdominal pain. Patient did have a bowel movement today and yesterday evening. Diet advanced to low fiber diet. Blood sugar is fairly controlled. No cough or sputum production. No fevers no chills. Current medications reviewed. Objective - Vital Signs Vital signs: Vital Signs Temp 96.6 F L 06/03/23 20:00 Pulse 109 H 06/03/23 20:00 Resp 20 06/03/23 20:00 BP 155/78 06/03/23 20:00 Pulse Ox 95 06/03/23 20:00 FiO2 Intake & Output 06/03/23 06/03/23 06/04/23 06:59 18:59 06:59 Intake Total 187.6 Output Total 1200 2200 Balance -1199.4 Intake: Intake, IV Titration 187.6 Amount Ropivacaine 250 mg 187.6 Hydromorphone (Pf) 5 mg In Sodium Chloride 0.9% 200 ml @ Per Protocol EPIDURAL .Q0M PRN Rx#: [id number] Output: Urine 1200 2200 Uretheral (Mcintosh) 1400 Other: Voiding Method Indwelling Catheter Indwelling Catheter # Bowel Movements 1 - Exam PHYSICAL EXAMINATION: Patient is lying in the bed,, no acute distress, awake alert and oriented.. HEENT: Normocephalic. Neck is supple. Pupils reactive. Nostrils clear. Oral cavity is moist. Neck reveals no JVD, carotid bruits, or thyromegaly. CHEST EXAMINATION: Trachea is central. Symmetrical expansion. Bibasilar diminished sounds. No wheezing or rhonchi.. CARDIAC: Normal S1, S2 with no gallops. No murmurs ABDOMEN: Soft. Bowel sounds present. Surgical site is bandaged.. No organomegaly. No abdominal bruits. No guarding or rigidity. Extremities: reveal no edema. No clubbing or cyanosis Neurologically awake, alert, oriented x3 with well-coordinated movements. No focal deficits noted Skin: No rash or skin lesions. Psychiatric: Coperative. Nonsuicidal, Musculoskeletal: No joint swelling or deformity. Normal range of motion. - Labs CBC & Chem 7: 06/02/23 06:27 06/02/23 06:27 Labs: Abnormal Lab Results - Last 24 Hours (Table) 06/03/23 06/03/23 06/03/23 Range/Units 07:21 12:20 17:05 POC Glucose (mg/dL) 185 H 184 H 173 H (70-110) mg/dL 06/03/23 Range/Units 20:10 POC Glucose (mg/dL) 134 H (70-110) mg/dL Assessment and Plan Assessment: Status post low anterior resection and repair of colovesical fistula. Postoperative day 2 Leukocytosis likely due to postsurgical inflammation, resolved Chronic atrial fibrillation with prior history of ablation and currently on anticoagulation with Xarelto. Diabetes type 2 [id number] History of frequent urinary tract infections. On nitrofurantoin prophylactic dose. Hypertension Hyperlipidemia History of prostate cancer in 2002 status postradiation Prior history of smoking Asthma not in exacerbation Macrocytosis DVT prophylaxis patient is currently on heparin subcu Plan: Patient is being continued on pain management. Encourage with incentive spirometry. Patient is on Coreg 25 mg every morning and Cardizem 30 mg twice daily for rate control. Patient will be started back on Xarelto once cleared by surgery. Continue with insulin sliding scale. Patient is on IV hydration with D5 half-normal at 125 cc/h. Patient is being continued on Mcintosh catheter. Continue with albuterol relation, Advair and Singulair. Continue other home medic follow-up closely. Follow-up CBC and BMP tomorrow. We will continue to follow and further recommendations based on the clinical course. Thank you kindly for your consult.
[2023-06-04] MEDS: LACTATED RINGERS 1,000 ML IV SCH (02:14)
[2023-06-04] MEDS: ACETAMINOPHEN TAB 500 MG TAB PO PRN ×3 (06:46→21:21)
[2023-06-04 07:11] LABS: Glucose,Whole Blood 126 mg/dL (70-110)
[2023-06-04] MEDS: INSULIN ASPART (NovoLOG) 100 UNIT/ML VIAL SQ SCH ×4 (07:27→21:21)
[2023-06-04] MEDS: SYMBICORT 160-4.5 MCG INHALER INHALATION SCH ×2 (08:12→18:25)
[2023-06-04] MEDS: FAMOTIDINE 20 MG/2 ML VIAL IV SCH ×2 (08:44→21:21)
[2023-06-04] MEDS: HEPARIN SODIUM,PORCINE 5,000 UNIT/ML 1 ML VIAL SQ SCH ×3 (08:44→23:43)
[2023-06-04] MEDS: carvediloL 12.5 MG TAB PO SCH (08:44)
[2023-06-04] MEDS: SIMETHICONE 40 MG/0.6 ML DROPS 2,000 MG/30 ML BOTTLE PO SCH ×4 (08:45→21:22)
[2023-06-04] MEDS: DILTIAZEM ORAL 30 MG TAB PO SCH ×2 (08:45→21:21)
[2023-06-04] MEDS: allopurinoL 300 MG TAB PO SCH (08:45)
[2023-06-04 11:36] LABS: BUN/Creat Ratio 8.86 Ratio (12.00-20.00); Blood Urea Nitrogen 6.2 mg/dL (9.0-27.0); Calcium 9.5 mg/dL (8.7-10.3); Carbon Dioxide 26.8 mmol/L (21.6-31.8); Chloride 101 mmol/L (96-109); Glucose 114 mg/dL (70-110); Potassium 3.8 mmol/L (3.5-5.5); Sodium 141 mmol/L (135-145)
[2023-06-04 11:41] LABS: HCT 43.6 % (39.6-50.0); HGB 14.2 d/dL (13.0-17.0); MCH 31.7 pg (27.0-32.0); MCHC 32.6 d/dL (32.0-37.0); MCV 97.3 FL (80.0-97.0); Mean Platelet Volume 10.7 FL (9.5-12.2); NRBC Per 100 WBC 0 X 10*3/uL (0.00-0.01); Platelet Count 250 X 10*3/uL (140-440); RBC 4.48 X 10*6/uL (4.40-5.60); RDW 12.7 % (11.5-14.5); WBC 16.23 X 10*3/uL (4.50-10.00)
[2023-06-04 12:10] LABS: Glucose,Whole Blood 136 mg/dL (70-110)
[2023-06-04 12:43] LABS: Basophils # (A) 0.03 X 10*3/uL (0.00-0.10); Basophils % (A) 0.2 %; Eosinophils # (A) 0.04 X 10*3/uL (0.04-0.35); Eosinophils % (A) 0.2 %; Lymphocytes # (A) 1.51 X 10*3/uL (0.90-5.00); Lymphocytes % (A) 9.3 %; Monocytes # (A) 2.17 X 10*3/uL (0.20-1.00); Monocytes % (A) 13.4 %; Neutrophils # (A) 12.42 X 10*3/uL (1.80-7.70); Neutrophils % (A) 76.5 %; RBC Morphology Normal (Normal)
--- NOTE | 2023-06-04 15:26 | P.EN ---
Patient will require a 4 wheeled walker on discharge to be able to manage ADLs as patient had a recent abdominal surgery of lower anterior resection and also with history of atrial fibrillation, hypertension.
--- NOTE | 2023-06-04 16:05 | P.PN ---
Subjective Progress Note Date: 06/04/23 CHIEF COMPLAINT: Diverticulitis with colovesical fistula HISTORY OF PRESENT ILLNESS: Patient is postop day #3 status post lower anterior resection and repair of colovesical fistula. Patient having flatus. No bowel movement reported. Patient has been confused and pulled out the epidural during the night. Patient has been tachycardic. Afebrile. WBC is elevated at 16.23. Hgb 14.2 platelets 250 PHYSICAL EXAM: VITAL SIGNS: Reviewed. GENERAL: Well-developed in no acute distress. ABDOMEN: Soft. Nondistended. Prevana dressing clean dry and intact. NEUROLOGIC: Awake. Confused ASSESSMENT: 1. Colovesical fistula 2. Diverticulitis PLAN: -DO NOT REMOVE ZAIDI CATHETER -Continue low fiber diet -Due to altered mental status will continue Tylenol as needed for pain. IV Dilaudid for breakthrough pain PRN -Encouraged patient to use incentive spirometer -Encouraged patient to increase activity level -PT on consult -Antibiotics added for leukocytosis Physician Blind Cleaner note has been reviewed by physician. Signing provider agrees with the documented findings, assessment, and plan of care. Objective - Vital Signs Vital signs: Vital Signs Temp 97.8 F 06/04/23 12:24 Pulse 128 H 06/04/23 12:24 Resp 18 06/04/23 12:24 BP 151/98 06/04/23 12:24 Pulse Ox 99 06/04/23 12:24 FiO2 Intake & Output 06/03/23 06/04/23 06/04/23 18:59 06:59 18:59 Intake Total 187.6 590 Output Total 2200 4500 Balance - -3910 Intake: Intake, IV Titration 187.6 Amount Ropivacaine 250 mg 187.6 Hydromorphone (Pf) 5 mg In Sodium Chloride 0.9% 200 ml @ Per Protocol EPIDURAL .Q0M PRN Rx#: [id number] Oral 590 Output: Urine 2200 4500 Uretheral (Zaidi) 1400 1400 Other: Voiding Method Indwelling Catheter Indwelling Catheter Indwelling Catheter - Labs CBC & Chem 7: 06/04/23 06:28 06/04/23 06:28 Labs: Abnormal Lab Results - Last 24 Hours (Table) 06/03/23 06/03/23 06/04/23 Range/Units 17:05 20:10 06:28 WBC 16.23 H (4.50-10.00) X 10*3/uL MCV 97.3 H (80.0-97.0) FL Neutrophils # 12.42 H (1.80-7.70) X 10*3/uL Monocytes # 2.17 H (0.20-1.00) X 10*3/uL Anion Gap (4.00-12.00) mmol/L BUN (9.0-27.0) mg/dL BUN/Creatinine Ratio (12.00-20.00) Ratio Glucose (70-110) mg/dL POC Glucose (mg/dL) 173 H 134 H (70-110) mg/dL 06/04/23 06/04/23 06/04/23 Range/Units 06:28 07:10 12:09 WBC (4.50-10.00) X 10*3/uL MCV (80.0-97.0) FL Neutrophils # (1.80-7.70) X 10*3/uL Monocytes # (0.20-1.00) X 10*3/uL Anion Gap 13.20 H (4.00-12.00) mmol/L BUN 6.2 L (9.0-27.0) mg/dL BUN/Creatinine Ratio 8.86 L (12.00-20.00) Ratio Glucose 114 H (70-110) mg/dL POC Glucose (mg/dL) 126 H 136 H (70-110) mg/dL
[2023-06-04] MEDS: PIPERACILLIN-TAZOBACTAM 3.375 GM in SODIUM CHLORIDE 0.9% 100 ML IVPB SCH ×2 (16:16→23:42)
[2023-06-04 16:54] LABS: Glucose,Whole Blood 136 mg/dL (70-110)
[2023-06-04 20:15] LABS: Glucose,Whole Blood 205 mg/dL (70-110)
[2023-06-04] MEDS: MONTELUKAST 10 MG TAB PO SCH (21:21)
--- NOTE | 2023-06-04 22:00 | P.PN ---
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 Patient is status post low anterior resection along with repair of colovesical fistula. Patient is currently resting in bed. Pain is controlled. Patient is on pain pump. No complaints of chest pain or shortness of breath. No cough or sputum production. No complaints of nausea. Laboratory data showed WBC 15.6 hemoglobin 13.5 and platelets 220 and MCV 100.8 BUN 8 and creatinine 0.53 sodium 140 and potassium 3.9 blood sugar is 108. Calcium 9.0. 06/02/2023 Patient is currently lying in bed. Awake alert and oriented x3. No complaints of chest pain or shortness of breath. Abdominal pain is much improved. No cough or sputum production. Patient was started on clear liquid diet. No bowel movement yet. Patient has been afebrile. Laboratory data showed WBC 9.8 hemoglobin 13.0 and platelets 193, MCV 102.2, sodium 139 potassium 4.2 chloride 104 bicarb is 29 BUN 5 and creatinine 0.62 and A1c 4.8. B12 level is 1628. 06/03/2023 Patient is currently able to sit on the side of the bed. Awake alert and oriented x3. No complaints of chest pain or shortness of breath. No complaints of abdominal pain. Patient did have a bowel movement today and yesterday evening. Diet advanced to low fiber diet. Blood sugar is fairly controlled. No cough or sputum production. No fevers no chills. 06/04/2023 Patient is currently resting in the bed. Awake alert and oriented. No complaints of chest pain. Mild shortness of breath. IV fluids on hold. Abdominal pain is controlled well. Otherwise patient is afebrile. Patient was disoriented and was pulling his lines this morning. Patient is able to tolerate oral diet. Did have a bowel movement today. No com plaints of nausea or vomiting or diarrhea. Denied cough or sputum production. Denied dysuria. Laboratory data showed WBC increased to 16.23, platelets 250, hemoglobin 14.2 Sodium 141 potassium 3.8 chloride 101 bicarb is 26.8 BUN 6.20 creatinine 0.7 and blood sugar is 114 Current medications reviewed. Objective - Vital Signs Vital signs: Vital Signs Temp 98 F 06/04/23 07:10 Pulse 94 06/04/23 07:10 Resp 18 06/04/23 07:10 BP 130/77 06/04/23 07:10 Pulse Ox 94 L 06/04/23 07:10 FiO2 Intake & Output 06/03/23 06/04/23 06/04/23 18:59 06:59 18:59 Intake Total 187.6 590 Output Total 2200 4500 Balance -3910 Intake: Intake, IV Titration 187.6 Amount Ropivacaine 250 mg 187.6 Hydromorphone (Pf) 5 mg In Sodium Chloride 0.9% 200 ml @ Per Protocol EPIDURAL .Q0M PRN Rx#: [id number] Oral 590 Output: Urine 2200 4500 Uretheral (Mcintosh) 1400 1400 Other: Voiding Method Indwelling Catheter Indwelling Catheter Indwelling Catheter - Exam PHYSICAL EXAMINATION: Patient is lying in the bed,, no acute distress, awake alert and oriented.. HEENT: Normocephalic. Neck is supple. Pupils reactive. Nostrils clear. Oral cavity is moist. Neck reveals no JVD, carotid bruits, or thyromegaly. CHEST EXAMINATION: Trachea is central. Symmetrical expansion. Bibasilar diminished sounds. No wheezing or rhonchi.. CARDIAC: Normal S1, S2 with no gallops. No murmurs ABDOMEN: Soft. Bowel sounds present. Surgical site is bandaged.. No organomegaly. No abdominal bruits. No guarding or rigidity. Extremities: reveal no edema. No clubbing or cyanosis Neurologically awake, alert, oriented x3 with well-coordinated movements. No focal deficits noted Skin: No rash or skin lesions. Psychiatric: Coperative. Nonsuicidal, Musculoskeletal: No joint swelling or deformity. Normal range of motion. - Labs CBC & Chem 7: 06/04/23 06:28 06/04/23 06:28 Labs: Abnormal Lab Results - Last 24 Hours (Table) 06/03/23 06/03/23 06/03/23 Range/Units 12:20 17:05 20:10 WBC (4.50-10.00) X 10*3/uL MCV (80.0-97.0) FL Anion Gap (4.00-12.00) mmol/L BUN (9.0-27.0) mg/dL BUN/Creatinine Ratio (12.00-20.00) Ratio Glucose (70-110) mg/dL POC Glucose (mg/dL) 184 H 173 H 134 H (70-110) mg/dL 06/04/23 06/04/23 06/04/23 Range/Units 06:28 06:28 07:10 WBC 16.23 H (4.50-10.00) X 10*3/uL MCV 97.3 H (80.0-97.0) FL Anion Gap 13.20 H (4.00-12.00) mmol/L BUN 6.2 L (9.0-27.0) mg/dL BUN/Creatinine Ratio 8.86 L (12.00-20.00) Ratio Glucose 114 H (70-110) mg/dL POC Glucose (mg/dL) 126 H (70-110) mg/dL Assessment and Plan Assessment: Status post low anterior resection and repair of colovesical fistula. Postoperative day 3 Leukocytosis likely due to postsurgical inflammation. WBC increased again to 16 today. Rule out infection. Chronic atrial fibrillation with prior history of ablation and currently on anticoagulation with Xarelto. Diabetes type 2 [id number] History of frequent urinary tract infections. On nitrofurantoin prophylactic dose. Hypertension Hyperlipidemia History of prostate cancer in 2001 status postradiation Prior history of smoking Asthma not in exacerbation Macrocytosis DVT prophylaxis patient is currently on heparin subcu Plan: Patient is being continued on pain management. Encourage with incentive spirometry. Patient is on Coreg 25 mg every morning and Cardizem 30 mg twice daily for rate control. Patient will be started back on Xarelto once cleared by surgery. Continue with insulin sliding scale. Patient was on IV hydration with D5 half-normal at 125 cc/h. Patient is being continued on Mcintosh catheter. Continue with albuterol relation, Advair and Singulair. Continue other home medic follow-up closely. IV fluids changed to KVO due to shortness of breath and possible congestion. Patient is tolerating oral diet. Antibiotics, Zosyn was added due to leukocytosis. Follow-up CBC and BMP tomorrow. We will continue to follow and further recommendations based on the clinical course. Time with Patient: Greater than 30
[2023-06-05] MEDS: LACTATED RINGERS 1,000 ML IV SCH (05:39)
[2023-06-05 07:04] LABS: Glucose,Whole Blood 108 mg/dL (70-110)
[2023-06-05] MEDS: SYMBICORT 160-4.5 MCG INHALER INHALATION SCH ×2 (08:19→18:25)
[2023-06-05] MEDS: INSULIN ASPART (NovoLOG) 100 UNIT/ML VIAL SQ SCH ×4 (09:11→20:48)
[2023-06-05] MEDS: ACETAMINOPHEN TAB 500 MG TAB PO PRN ×2 (09:12→17:51)
[2023-06-05] MEDS: HEPARIN SODIUM,PORCINE 5,000 UNIT/ML 1 ML VIAL SQ SCH ×3 (09:12→23:26)
[2023-06-05] MEDS: PIPERACILLIN-TAZOBACTAM 3.375 GM in SODIUM CHLORIDE 0.9% 100 ML IVPB SCH ×3 (09:12→23:27)
[2023-06-05] MEDS: allopurinoL 300 MG TAB PO SCH (09:12)
[2023-06-05] MEDS: carvediloL 12.5 MG TAB PO SCH (09:12)
[2023-06-05] MEDS: FAMOTIDINE 20 MG/2 ML VIAL IV SCH ×2 (09:13→20:48)
[2023-06-05] MEDS: DILTIAZEM ORAL 30 MG TAB PO SCH ×2 (09:13→20:48)
[2023-06-05] MEDS: SIMETHICONE 40 MG/0.6 ML DROPS 2,000 MG/30 ML BOTTLE PO SCH ×4 (09:19→20:49)
[2023-06-05 11:04] LABS: BUN/Creat Ratio 8.56 Ratio (12.00-20.00); Blood Urea Nitrogen 7.7 mg/dL (9.0-27.0); Calcium 9.2 mg/dL (8.7-10.3); Carbon Dioxide 30.3 mmol/L (21.6-31.8); Chloride 104 mmol/L (96-109); Glucose 119 mg/dL (70-110); Potassium 4.1 mmol/L (3.5-5.5); Sodium 145 mmol/L (135-145)
[2023-06-05 11:18] LABS: Basophils # (A) 0.02 X 10*3/uL (0.00-0.10); Basophils % (A) 0.2 %; Eosinophils # (A) 0.14 X 10*3/uL (0.04-0.35); Eosinophils % (A) 1.2 %; HCT 40.3 % (39.6-50.0); HGB 13.1 d/dL (13.0-17.0); Lymphocytes # (A) 1.46 X 10*3/uL (0.90-5.00); Lymphocytes % (A) 12.7 %; MCH 31.4 pg (27.0-32.0); MCHC 32.5 d/dL (32.0-37.0); MCV 96.6 FL (80.0-97.0); Mean Platelet Volume 10.8 FL (9.5-12.2); Monocytes # (A) 1.58 X 10*3/uL (0.20-1.00); Monocytes % (A) 13.8 %; NRBC Per 100 WBC 0 X 10*3/uL (0.00-0.01); Neutrophils # (A) 8.22 X 10*3/uL (1.80-7.70); Neutrophils % (A) 71.6 %; Platelet Count 237 X 10*3/uL (140-440); RBC 4.17 X 10*6/uL (4.40-5.60); RDW 12.8 % (11.5-14.5); WBC 11.48 X 10*3/uL (4.50-10.00)
[2023-06-05 12:25] LABS: Glucose,Whole Blood 148 mg/dL (70-110)
--- NOTE | 2023-06-05 13:53 | P.PN ---
Subjective Progress Note Date: 06/05/23 CHIEF COMPLAINT: Diverticulitis with colovesical fistula HISTORY OF PRESENT ILLNESS: Patient is postop day #4 status post lower anterior resection and repair of colovesical fistula. Patient having flatus. No bowel movement reported. Afebrile. Tachycardia improved. WBC is down from 16.23- 11.48 PHYSICAL EXAM: VITAL SIGNS: Reviewed. GENERAL: Well-developed in no acute distress. ABDOMEN: Soft. Nondistended. Prevana dressing clean dry and intact. NEUROLOGIC: Awake. Confused ASSESSMENT: 1. Colovesical fistula 2. Diverticulitis PLAN: -DO NOT REMOVE ZAIDI CATHETER -Continue low fiber diet -Continue pain management -Encouraged patient to use incentive spirometer -Encouraged patient to increase activity level -Continue antibiotics -DVT prophylaxis subcu heparin Physician Prospecting Driller note has been reviewed by physician. Signing provider agrees with the documented findings, assessment, and plan of care. Objective - Vital Signs Vital signs: Vital Signs Temp 98.5 F 06/05/23 08:35 Pulse 70 06/05/23 08:35 Resp 16 06/05/23 08:35 BP 152/79 06/05/23 08:35 Pulse Ox 94 L 06/05/23 08:35 FiO2 Intake & Output 06/04/23 06/05/23 06/05/23 18:59 06:59 18:59 Intake Total 590 Output Total 700 1100 Balance -700 -510 Intake: Oral 590 Output: Urine 700 1100 Other: Voiding Method Indwelling Catheter Indwelling Catheter Indwelling Catheter - Labs CBC & Chem 7: 06/05/23 06:10 06/05/23 06:10 Labs: Abnormal Lab Results - Last 24 Hours (Table) 06/04/23 06/04/23 06/04/23 Range/Units 06:28 12:09 16:52 WBC (4.50-10.00) X 10*3/uL RBC (4.40-5.60) X 10*6/uL Neutrophils # 12.42 H (1.80-7.70) X 10*3/uL Monocytes # 2.17 H (0.20-1.00) X 10*3/uL BUN (9.0-27.0) mg/dL BUN/Creatinine Ratio (12.00-20.00) Ratio Glucose (70-110) mg/dL POC Glucose (mg/dL) 136 H 136 H (70-110) mg/dL 06/04/23 06/05/23 06/05/23 Range/Units 20:14 06:10 06:10 WBC 11.48 H (4.50-10.00) X 10*3/uL RBC 4.17 L (4.40-5.60) X 10*6/uL Neutrophils # 8.22 H (1.80-7.70) X 10*3/uL Monocytes # 1.58 H (0.20-1.00) X 10*3/uL BUN 7.7 L (9.0-27.0) mg/dL BUN/Creatinine Ratio 8.56 L (12.00-20.00) Ratio Glucose 119 H (70-110) mg/dL POC Glucose (mg/dL) 205 H (70-110) mg/dL
[2023-06-05 17:30] LABS: Glucose,Whole Blood 121 mg/dL (70-110)
[2023-06-05 19:59] LABS: Glucose,Whole Blood 227 mg/dL (70-110)
[2023-06-05] MEDS: MONTELUKAST 10 MG TAB PO SCH (20:48)
--- NOTE | 2023-06-05 22:32 | P.PN ---
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 Patient is status post low anterior resection along with repair of colovesical fistula. Patient is currently resting in bed. Pain is controlled. Patient is on pain pump. No complaints of chest pain or shortness of breath. No cough or sputum production. No complaints of nausea. Laboratory data showed WBC 15.6 hemoglobin 13.5 and platelets 220 and MCV 100.8 BUN 8 and creatinine 0.53 sodium 140 and potassium 3.9 blood sugar is 108. Calcium 9.0. 06/02/2023 Patient is currently lying in bed. Awake alert and oriented x3. No complaints of chest pain or shortness of breath. Abdominal pain is much improved. No cough or sputum production. Patient was started on clear liquid diet. No bowel movement yet. Patient has been afebrile. Laboratory data showed WBC 9.8 hemoglobin 13.0 and platelets 193, MCV 102.2, sodium 139 potassium 4.2 chloride 104 bicarb is 29 BUN 5 and creatinine 0.62 and A1c 4.8. B12 level is 1628. 06/03/2023 Patient is currently able to sit on the side of the bed. Awake alert and oriented x3. No complaints of chest pain or shortness of breath. No complaints of abdominal pain. Patient did have a bowel movement today and yesterday evening. Diet advanced to low fiber diet. Blood sugar is fairly controlled. No cough or sputum production. No fevers no chills. 06/04/2023 Patient is currently resting in the bed. Awake alert and oriented. No complaints of chest pain. Mild shortness of breath. IV fluids on hold. Abdominal pain is controlled well. Otherwise patient is afebrile. Patient was disoriented and was pulling his lines this morning. Patient is able to tolerate oral diet. Did have a bowel movement today. No com plaints of nausea or vomiting or diarrhea. Denied cough or sputum production. Denied dysuria. Laboratory data showed WBC increased to 16.23, platelets 250, hemoglobin 14.2 Sodium 141 potassium 3.8 chloride 101 bicarb is 26.8 BUN 6.20 creatinine 0.7 and blood sugar is 114 06/05/2023 Patient is currently lying in the bed. Awake alert and oriented x3. Denies any complaints of abdominal pain. Patient is able to pass flatus. Tolerating low- fat diet. No complaints of chest pain. Does have cough with light yellowish sputum production. No fever no chills. On room air. No headache or dizziness or lightheadedness. Patient is being continued on antibiotics, Zosyn and patient treatments and Symbicort inhaler. Laboratory showed WBC trending down to 11.48, hemoglobin 13.1 and platelets 237. BUN 7.7 creatinine 0.9 and blood sugar is 119. Participating in PT. Current medications reviewed. Objective - Vital Signs Vital signs: Vital Signs Temp 97.0 F L 06/05/23 18:59 Pulse 66 06/05/23 18:59 Resp 18 06/05/23 18:59 BP 133/82 06/05/23 18:59 Pulse Ox 94 L 06/05/23 18:59 FiO2 Intake & Output 06/05/23 06/05/23 06/06/23 06:59 18:59 06:59 Intake Total 590 Output Total 1100 600 Balance -510 -600 Intake: Oral 590 Output: Urine 1100 600 Other: Voiding Method Indwelling Catheter Indwelling Catheter - Exam PHYSICAL EXAMINATION: Patient is lying in the bed,, no acute distress, awake alert and oriented.. HEENT: Normocephalic. Neck is supple. Pupils reactive. Nostrils clear. Oral cavity is moist. Neck reveals no JVD, carotid bruits, or thyromegaly. CHEST EXAMINATION: Trachea is central. Symmetrical expansion. Bibasilar diminished sounds. No wheezing or rhonchi.. CARDIAC: Normal S1, S2 with no gallops. No murmurs ABDOMEN: Soft. Bowel sounds present. Surgical site is bandaged.. No organomegaly. No abdominal bruits. No guarding or rigidity. Extremities: reveal no edema. No clubbing or cyanosis Neurologically awake, alert, oriented x3 with well-coordinated movements. No focal deficits noted Skin: No rash or skin lesions. Psychiatric: Coperative. Nonsuicidal, Musculoskeletal: No joint swelling or deformity. Normal range of motion. - Labs CBC & Chem 7: 06/05/23 06:10 06/05/23 06:10 Labs: Abnormal Lab Results - Last 24 Hours (Table) 06/05/23 06/05/23 06/05/23 Range/Units 06:10 06:10 12:24 WBC 11.48 H (4.50-10.00) X 10*3/uL RBC 4.17 L (4.40-5.60) X 10*6/uL Neutrophils # 8.22 H (1.80-7.70) X 10*3/uL Monocytes # 1.58 H (0.20-1.00) X 10*3/uL BUN 7.7 L (9.0-27.0) mg/dL BUN/Creatinine Ratio 8.56 L (12.00-20.00) Ratio Glucose 119 H (70-110) mg/dL POC Glucose (mg/dL) 148 H (70-110) mg/dL 06/05/23 06/05/23 Range/Units 17:28 19:53 WBC (4.50-10.00) X 10*3/uL RBC (4.40-5.60) X 10*6/uL Neutrophils # (1.80-7.70) X 10*3/uL Monocytes # (0.20-1.00) X 10*3/uL BUN (9.0-27.0) mg/dL BUN/Creatinine Ratio (12.00-20.00) Ratio Glucose (70-110) mg/dL POC Glucose (mg/dL) 121 H 227 H (70-110) mg/dL Assessment and Plan Assessment: Status post low anterior resection and repair of colovesical fistula. Postoperative day 4 Leukocytosis likely due to postsurgical inflammation. WBC 16-->11 today. Chronic atrial fibrillation with prior history of ablation and currently on anticoagulation with Xarelto. Diabetes type 2 [id number] History of frequent urinary tract infections. On nitrofurantoin prophylactic dose. Hypertension Hyperlipidemia History of prostate cancer in 2001 status postradiation Prior history of smoking Asthma not in exacerbation Macrocytosis DVT prophylaxis patient is currently on heparin subcu Plan: Patient is being continued on pain management. Encourage with incentive spirometry. Patient is on Coreg 25 mg every morning and Cardizem 30 mg twice daily for rate control. Patient will be started back on Xarelto once cleared by surgery. Continue with insulin sliding scale. Patient is being continued on Mcintosh catheter. Continue with albuterol relation, Advair and Singulair. Continue other home medic follow-up closely. IV fluids changed to KVO due to shortness of breath and possible congestion. Patient is tolerating oral diet. Antibiotics, Zosyn was added due to leukocytosis. Follow-up CBC and BMP tomorrow. We will continue to follow and further recommendations based on the clinical course. Time with Patient: Greater than 30
[2023-06-06] MEDS: LACTATED RINGERS 1,000 ML IV SCH (04:51)
[2023-06-06 07:20] LABS: Glucose,Whole Blood 132 mg/dL (70-110)
[2023-06-06] MEDS: HEPARIN SODIUM,PORCINE 5,000 UNIT/ML 1 ML VIAL SQ SCH ×2 (08:25→17:08)
[2023-06-06] MEDS: carvediloL 12.5 MG TAB PO SCH (08:25)
[2023-06-06] MEDS: DILTIAZEM ORAL 30 MG TAB PO SCH ×2 (08:25→20:47)
[2023-06-06] MEDS: FAMOTIDINE 20 MG/2 ML VIAL IV SCH ×2 (08:25→20:47)
[2023-06-06] MEDS: allopurinoL 300 MG TAB PO SCH (08:26)
[2023-06-06] MEDS: SIMETHICONE 40 MG/0.6 ML DROPS 2,000 MG/30 ML BOTTLE PO SCH ×4 (08:26→20:48)
[2023-06-06] MEDS: PIPERACILLIN-TAZOBACTAM 3.375 GM in SODIUM CHLORIDE 0.9% 100 ML IVPB SCH ×2 (08:27→15:58)
[2023-06-06] MEDS: INSULIN ASPART (NovoLOG) 100 UNIT/ML VIAL SQ SCH ×4 (08:28→20:34)
[2023-06-06] MEDS: SYMBICORT 160-4.5 MCG INHALER INHALATION SCH ×2 (09:18→20:32)
[2023-06-06 11:05] LABS: Basophils # (A) 0.02 X 10*3/uL (0.00-0.10); Basophils % (A) 0.2 %; Eosinophils # (A) 0.15 X 10*3/uL (0.04-0.35); Eosinophils % (A) 1.3 %; HCT 40.9 % (39.6-50.0); HGB 13.4 d/dL (13.0-17.0); Lymphocytes # (A) 1.54 X 10*3/uL (0.90-5.00); Lymphocytes % (A) 13.3 %; MCH 31.5 pg (27.0-32.0); MCHC 32.8 d/dL (32.0-37.0); MCV 96.2 FL (80.0-97.0); Mean Platelet Volume 10.9 FL (9.5-12.2); Monocytes # (A) 1.47 X 10*3/uL (0.20-1.00); Monocytes % (A) 12.7 %; NRBC Per 100 WBC 0 X 10*3/uL (0.00-0.01); Neutrophils # (A) 8.39 X 10*3/uL (1.80-7.70); Neutrophils % (A) 72.2 %; Platelet Count 254 X 10*3/uL (140-440); RBC 4.25 X 10*6/uL (4.40-5.60); RDW 12.8 % (11.5-14.5); WBC 11.61 X 10*3/uL (4.50-10.00)
[2023-06-06 11:11] LABS: BUN/Creat Ratio 11.29 Ratio (12.00-20.00); Blood Urea Nitrogen 7.9 mg/dL (9.0-27.0); Calcium 9.1 mg/dL (8.7-10.3); Carbon Dioxide 24.5 mmol/L (21.6-31.8); Chloride 106 mmol/L (96-109); Glucose 119 mg/dL (70-110); Potassium 3.6 mmol/L (3.5-5.5); Sodium 144 mmol/L (135-145)
[2023-06-06 12:02] LABS: Glucose,Whole Blood 181 mg/dL (70-110)
--- NOTE | 2023-06-06 14:04 | P.PN ---
Subjective Progress Note Date: 06/06/23 CHIEF COMPLAINT: Diverticulitis with colovesical fistula HISTORY OF PRESENT ILLNESS: Patient is postop day #5 status post lower anterior resection and repair of colovesical fistula. Patient having flatus. Still hasn't had BM. No nausea or vomiting reported. Afebrile. WBC 11.61 hgb 13.4 PHYSICAL EXAM: VITAL SIGNS: Reviewed. GENERAL: Well-developed in no acute distress. ABDOMEN: Soft. Nondistended. Prevana dressing clean dry and intact. NEUROLOGIC: Awake. Confused ASSESSMENT: 1. Colovesical fistula 2. Diverticulitis PLAN: -DO NOT REMOVE ZAIDI CATHETER. Patient will go home with Zaidi catheter -Anticipate discharge possibly tomorrow -Continue low fiber diet -Continue pain management -Encouraged patient to use incentive spirometer -Encouraged patient to increase activity level -Continue antibiotics -DVT prophylaxis subcu heparin Physician Renal Technician note has been reviewed by physician. Signing provider agrees with the documented findings, assessment, and plan of care. Objective - Vital Signs Vital signs: Vital Signs Temp 97.6 F 06/06/23 07:12 Pulse 76 06/06/23 07:12 Resp 16 06/06/23 07:12 BP 133/90 06/06/23 07:12 Pulse Ox 96 06/06/23 09:18 FiO2 Intake & Output 06/05/23 06/06/23 06/06/23 18:59 06:59 18:59 Intake Total 300 Output Total 600 1000 Balance -600 -700 Intake: Oral 300 Output: Urine 600 1000 Other: Voiding Method Indwelling Catheter Indwelling Catheter - Labs CBC & Chem 7: 06/06/23 06:34 06/06/23 06:34 Labs: Abnormal Lab Results - Last 24 Hours (Table) 06/05/23 06/05/23 06/05/23 Range/Units 06:10 06:10 12:24 WBC 11.48 H (4.50-10.00) X 10*3/uL RBC 4.17 L (4.40-5.60) X 10*6/uL Neutrophils # 8.22 H (1.80-7.70) X 10*3/uL Monocytes # 1.58 H (0.20-1.00) X 10*3/uL BUN 7.7 L (9.0-27.0) mg/dL BUN/Creatinine Ratio 8.56 L (12.00-20.00) Ratio Glucose 119 H (70-110) mg/dL POC Glucose (mg/dL) 148 H (70-110) mg/dL 06/05/23 06/05/23 06/06/23 Range/Units 17:28 19:53 07:18 WBC (4.50-10.00) X 10*3/uL RBC (4.40-5.60) X 10*6/uL Neutrophils # (1.80-7.70) X 10*3/uL Monocytes # (0.20-1.00) X 10*3/uL BUN (9.0-27.0) mg/dL BUN/Creatinine Ratio (12.00-20.00) Ratio Glucose (70-110) mg/dL POC Glucose (mg/dL) 121 H 227 H 132 H (70-110) mg/dL
[2023-06-06 17:12] LABS: Glucose,Whole Blood 112 mg/dL (70-110)
[2023-06-06 20:16] LABS: Glucose,Whole Blood 145 mg/dL (70-110)
[2023-06-06] MEDS: MONTELUKAST 10 MG TAB PO SCH (20:47)
--- NOTE | 2023-06-06 20:55 | P.PN ---
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 Patient is status post low anterior resection along with repair of colovesical fistula. Patient is currently resting in bed. Pain is controlled. Patient is on pain pump. No complaints of chest pain or shortness of breath. No cough or sputum production. No complaints of nausea. Laboratory data showed WBC 15.6 hemoglobin 13.5 and platelets 220 and MCV 100.8 BUN 8 and creatinine 0.53 sodium 140 and potassium 3.9 blood sugar is 108. Calcium 9.0. 06/02/2023 Patient is currently lying in bed. Awake alert and oriented x3. No complaints of chest pain or shortness of breath. Abdominal pain is much improved. No cough or sputum production. Patient was started on clear liquid diet. No bowel movement yet. Patient has been afebrile. Laboratory data showed WBC 9.8 hemoglobin 13.0 and platelets 193, MCV 102.2, sodium 139 potassium 4.2 chloride 104 bicarb is 29 BUN 5 and creatinine 0.62 and A1c 4.8. B12 level is 1628. 06/03/2023 Patient is currently able to sit on the side of the bed. Awake alert and oriented x3. No complaints of chest pain or shortness of breath. No complaints of abdominal pain. Patient did have a bowel movement today and yesterday evening. Diet advanced to low fiber diet. Blood sugar is fairly controlled. No cough or sputum production. No fevers no chills. 06/04/2023 Patient is currently resting in the bed. Awake alert and oriented. No complaints of chest pain. Mild shortness of breath. IV fluids on hold. Abdominal pain is controlled well. Otherwise patient is afebrile. Patient was disoriented and was pulling his lines this morning. Patient is able to tolerate oral diet. Did have a bowel movement today. No com plaints of nausea or vomiting or diarrhea. Denied cough or sputum production. Denied dysuria. Laboratory data showed WBC increased to 16.23, platelets 250, hemoglobin 14.2 Sodium 141 potassium 3.8 chloride 101 bicarb is 26.8 BUN 6.20 creatinine 0.7 and blood sugar is 114 06/05/2023 Patient is currently lying in the bed. Awake alert and oriented x3. Denies any complaints of abdominal pain. Patient is able to pass flatus. Tolerating low- fat diet. No complaints of chest pain. Does have cough with light yellowish sputum production. No fever no chills. On room air. No headache or dizziness or lightheadedness. Patient is being continued on antibiotics, Zosyn and patient treatments and Symbicort inhaler. Laboratory showed WBC trending down to 11.48, hemoglobin 13.1 and platelets 237. BUN 7.7 creatinine 0.9 and blood sugar is 119. Participating in PT. 06/06/2023 Patient is sitting in a chair. Awake alert and oriented x3. Denies any complaints of chest pain or shortness of breath. Currently on room air. No complaints of worsening abdominal pain. No nausea or vomiting. Patient able to pass flatus and no bowel movement yet. Patient is being current Mcintosh catheter. No cough or sputum production. Breathing status is stable. Laboratory showed WBC remained at 11.6 and hemoglobin 13.4 platelets 254 BUN 7.9 and creatinine 0.7 and blood sugar is 119. Calcium 9.1. PT OT is following. Current medications reviewed. Objective - Vital Signs Vital signs: Vital Signs Temp 97.5 F L 06/06/23 12:03 Pulse 67 06/06/23 12:03 Resp 18 06/06/23 12:03 BP 97/57 06/06/23 12:03 Pulse Ox 94 L 06/06/23 12:03 FiO2 Intake & Output 06/05/23 06/06/23 06/06/23 18:59 06:59 18:59 Intake Total 300 Output Total 600 1000 Balance -600 -700 Intake: Oral 300 Output: Urine 600 1000 Other: Voiding Method Indwelling Catheter Indwelling Catheter Indwelling Catheter - Exam PHYSICAL EXAMINATION: Patient is lying in the bed,, no acute distress, awake alert and oriented.. HEENT: Normocephalic. Neck is supple. Pupils reactive. Nostrils clear. Oral cavity is moist. Neck reveals no JVD, carotid bruits, or thyromegaly. CHEST EXAMINATION: Trachea is central. Symmetrical expansion. Bibasilar diminished sounds. No wheezing or rhonchi.. CARDIAC: Normal S1, S2 with no gallops. No murmurs ABDOMEN: Soft. Bowel sounds present. Surgical site is bandaged.. No organomegaly. No abdominal bruits. No guarding or rigidity. Extremities: reveal no edema. No clubbing or cyanosis Neurologically awake, alert, oriented x3 with well-coordinated movements. No focal deficits noted Skin: No rash or skin lesions. Psychiatric: Coperative. Nonsuicidal, Musculoskeletal: No joint swelling or deformity. Normal range of motion. - Labs CBC & Chem 7: 06/06/23 06:34 06/06/23 06:34 Labs: Abnormal Lab Results - Last 24 Hours (Table) 06/05/23 06/05/23 06/06/23 Range/Units 17:28 19:53 06:34 WBC 11.61 H (4.50-10.00) X 10*3/uL RBC 4.25 L (4.40-5.60) X 10*6/uL Neutrophils # 8.39 H (1.80-7.70) X 10*3/uL Monocytes # 1.47 H (0.20-1.00) X 10*3/uL Anion Gap (4.00-12.00) mmol/L BUN (9.0-27.0) mg/dL BUN/Creatinine Ratio (12.00-20.00) Ratio Glucose (70-110) mg/dL POC Glucose (mg/dL) 121 H 227 H (70-110) mg/dL 06/06/23 06/06/23 06/06/23 Range/Units 06:34 07:18 12:01 WBC (4.50-10.00) X 10*3/uL RBC (4.40-5.60) X 10*6/uL Neutrophils # (1.80-7.70) X 10*3/uL Monocytes # (0.20-1.00) X 10*3/uL Anion Gap 13.50 H (4.00-12.00) mmol/L BUN 7.9 L (9.0-27.0) mg/dL BUN/Creatinine Ratio 11.29 L (12.00-20.00) Ratio Glucose 119 H (70-110) mg/dL POC Glucose (mg/dL) 132 H 181 H (70-110) mg/dL Assessment and Plan Assessment: Status post low anterior resection and repair of colovesical fistula. Postoperative day 5 Leukocytosis likely due to postsurgical inflammation. WBC 16-->11 today. Chronic atrial fibrillation with prior history of ablation and currently on anticoagulation with Xarelto. Diabetes type 2 [id number] History of frequent urinary tract infections. On nitrofurantoin prophylactic dose. Hypertension Hyperlipidemia History of prostate cancer in 2002 status postradiation Prior history of smoking Asthma not in exacerbation Macrocytosis DVT prophylaxis patient is currently on heparin subcu Plan: Patient is being continued on pain management. Encourage with incentive spirometry. Patient is on Coreg 25 mg every morning and Cardizem 30 mg twice daily for rate control. Patient will be started back on Xarelto once cleared by surgery. Continue with insulin sliding scale. Patient is being continued on Mcintosh catheter. Continue with albuterol relation, Advair and Singulair. Continue other home medic follow-up closely. IV fluids changed to KVO due to shortness of breath and possible congestion. Patient is tolerating oral diet. Antibiotics, Zosyn was added due to leukocytosis. Follow-up CBC and BMP tomorrow. We will continue to follow and further recommendations based on the clinical course.
[2023-06-07] MEDS: HEPARIN SODIUM,PORCINE 5,000 UNIT/ML 1 ML VIAL SQ SCH ×2 (06:24→07:27)
[2023-06-07] MEDS: LACTATED RINGERS 1,000 ML IV SCH (06:24)
[2023-06-07] MEDS: PIPERACILLIN-TAZOBACTAM 3.375 GM in SODIUM CHLORIDE 0.9% 100 ML IVPB SCH ×2 (06:24→07:27)
[2023-06-07 06:32] LABS: Basophils % (A) 0 %; Eosinophils # (A) 0.2 k/uL (0-0.7); Eosinophils % (A) 2 %; HCT 41.2 % (39.0-53.0); HGB 13.6 gm/dL (13.0-17.5); Lymphocytes # (A) 1.6 k/uL (1.0-4.8); Lymphocytes % (A) 15 %; MCH 32.3 pg (25.0-35.0); MCHC 33.1 g/dL (31.0-37.0); MCV 97.8 fL (80.0-100.0); Mean Platelet Volume 8.6; Monocytes # (A) 0.9 k/uL (0-1.0); Monocytes % (A) 8 %; Neutrophils # (A) 7.8 k/uL (1.3-7.7); Neutrophils % (A) 74 %; Platelet Count 233 k/uL (150-450); RBC 4.22 m/uL (4.30-5.90); WBC 10.6 k/uL (3.8-10.6)
[2023-06-07 06:46] LABS: African American GFR (CKD) >90 (>60 ml/min/1.73 sqM); Anion Gap 11 mmol/L; Blood Urea Nitrogen 9 mg/dL (9-20); Calcium 8.9 mg/dL (8.4-10.2); Carbon Dioxide 24 mmol/L (22-30); Chloride 106 mmol/L (98-107); Glucose 116 mg/dL (74-99); Non-African American GFR(CKD) >90 (>60 ml/min/1.73 sqM); Sodium 141 mmol/L (137-145)
[2023-06-07 06:55] LABS: Potassium 3.6 mmol/L (3.5-5.1)
[2023-06-07 08:00] LABS: Glucose,Whole Blood 105 mg/dL (70-110)
[2023-06-07] MEDS: INSULIN ASPART (NovoLOG) 100 UNIT/ML VIAL SQ SCH ×2 (08:25→12:39)
[2023-06-07] MEDS: SYMBICORT 160-4.5 MCG INHALER INHALATION SCH (08:49)
[2023-06-07] MEDS: carvediloL 12.5 MG TAB PO SCH (10:57)
[2023-06-07] MEDS: allopurinoL 300 MG TAB PO SCH (10:57)
[2023-06-07] MEDS: DILTIAZEM ORAL 30 MG TAB PO SCH (10:57)
[2023-06-07] MEDS: FAMOTIDINE 20 MG/2 ML VIAL IV SCH (11:29)
[2023-06-07] MEDS: SIMETHICONE 40 MG/0.6 ML DROPS 2,000 MG/30 ML BOTTLE PO SCH ×2 (11:29→13:19)
[2023-06-07 12:00] VITALS: BP 153/89; PULSE 70; RESP 18; TEMP 97.7
[2023-06-07 12:07] LABS: Glucose,Whole Blood 133 mg/dL (70-110)
--- NOTE | 2023-06-07 13:23 | P.DS ---
Providers Date of admission: 06/01/23 06:51 Expected date of discharge: 06/07/23 Attending physician: Blane Esparza Consults: 06/01/23 11:00 Consult Physician Routine Consulting Provider: Valorie Bueno Consult Reason/Comments: Medical management Do you want consulting provider notified?: Yes 06/01/23 11:03 Consult Physician Routine Consulting Provider: Tucker Medina Consult Reason/Comments: Patient known, history of diverticular colovesical fistula Do you want consulting provider notified?: Yes Primary care physician: [facility] Course: Discharge diagnosis 1. Diverticulitis and colovesical fistula status post lower anterior resection and repair of colovesical fistula Hospital course This is a 77-year-old male with a history of diverticulitis and colovesical fistula. He is status post lower anterior resection and repair of colovesical fistula. Patient tolerated surgery well. His pain is controlled. He is tolerating diet. He is having bowel movements and flatus. Afebrile. White count has normalized. He has been up and ambulating. He is stable for discharge. He will be discharged home with Mcintosh catheter in place. Please refer to chart for any further details. Physician Materials Management Clerk note has been reviewed by physician. Signing provider agrees with the documented findings, assessment, and plan of care. Patient Condition at Discharge: Stable Plan - Discharge Summary Discharge Rx Participant: No New Discharge Prescriptions: New Acetaminophen Tab [Tylenol Tab] 650 mg PO Q4H PRN #30 tablet PRN Reason: Pain Continue Rivaroxaban [Xarelto] 20 mg PO DAILY No Action Albuterol Inhaler [Ventolin Hfa Inhaler] 2 puff INHALATION RT-QID #1 unit Cyanocobalamin [Vitamin B-12] 500 mcg PO DAILY Montelukast Sodium 10 mg PO HS Losartan [Cozaar] 25 mg PO QAM Fluticasone Propion/Salmeterol [Advair Hfa 230-21 Mcg Inhaler] 2 puff INHALATION BID metFORMIN HCL [Glucophage] 500 mg PO DAILY carvediloL 25 mg PO QAM Acetaminophen Tab [Tylenol] 500 mg PO BID PRN PRN Reason: Pain Vit C/E/Zn/Coppr/Lutein/Zeaxan [Preservision Areds 2 Chew Tab] 1 tab PO DAILY Cholecalciferol [Vitamin D3 (25 Mcg = 1000 Iu)] 125 mcg PO DAILY allopurinoL [Zyloprim] 300 mg PO DAILY ALPRAZolam [Xanax] 0.25 mg PO BID PRN PRN Reason: Anxiety dilTIAZem HCL 30 mg PO BID nitrofurantoin macrocrystaL [Nitrofurantoin] 100 mg PO DAILY methylPREDNISolone Dose Pack [Medrol Dose Pack] 4 mg PO DIRECTED Discharge Medication List Albuterol Inhaler [Ventolin Hfa Inhaler] 2 puff INHALATION RT-QID #1 unit 08/20/20 [Rx] ALPRAZolam [Xanax] 0.25 mg PO BID PRN 05/28/23 [History] Acetaminophen Tab [Tylenol] 500 mg PO BID PRN 05/28/23 [History] Cholecalciferol [Vitamin D3 (25 Mcg = 1000 Iu)] 125 mcg PO DAILY 05/28/23 [History] Cyanocobalamin [Vitamin B-12] 500 mcg PO DAILY 05/28/23 [History] Fluticasone Propion/Salmeterol [Advair Hfa 230-21 Mcg Inhaler] 2 puff INHALATION BID 05/28/23 [History] Losartan [Cozaar] 25 mg PO QAM 05/28/23 [History] Montelukast Sodium 10 mg PO HS 05/28/23 [History] Rivaroxaban [Xarelto] 20 mg PO DAILY 05/28/23 [History] Vit C/E/Zn/Coppr/Lutein/Zeaxan [Preservision Areds 2 Chew Tab] 1 tab PO DAILY 05/28/23 [History] allopurinoL [Zyloprim] 300 mg PO DAILY 05/28/23 [History] carvediloL 25 mg PO QAM 05/28/23 [History] dilTIAZem HCL 30 mg PO BID 05/28/23 [History] metFORMIN HCL [Glucophage] 500 mg PO DAILY 05/28/23 [History] nitrofurantoin macrocrystaL [Nitrofurantoin] 100 mg PO DAILY 05/28/23 [History] methylPREDNISolone Dose Pack [Medrol Dose Pack] 4 mg PO DIRECTED 05/31/23 [History] Acetaminophen Tab [Tylenol Tab] 650 mg PO Q4H PRN #30 tablet 06/07/23 [Rx] Follow up Appointment(s)/Referral(s): [facility], [NON-STAFF] - As Needed Blane Esparza MD [STAFF PHYSICIAN] - 1 Week Activity/Diet/Wound Care/Special Instructions: No lifting over 10 pounds Shower daily. No soaking or tub baths for 2 weeks Very light activity until you are reevaluated at your follow up appointment with your surgeon Keep Mcintosh Catheter in place Discharge Disposition: HOME WITH HOME HEALTH SERVICES
--- NOTE | 2023-06-07 15:13 | P.PN ---
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 Patient is status post low anterior resection along with repair of colovesical fistula. Patient is currently resting in bed. Pain is controlled. Patient is on pain pump. No complaints of chest pain or shortness of breath. No cough or sputum production. No complaints of nausea. Laboratory data showed WBC 15.6 hemoglobin 13.5 and platelets 220 and MCV 100.8 BUN 8 and creatinine 0.53 sodium 140 and potassium 3.9 blood sugar is 108. Calcium 9.0. 06/02/2023 Patient is currently lying in bed. Awake alert and oriented x3. No complaints of chest pain or shortness of breath. Abdominal pain is much improved. No co ugh or sputum production. Patient was started on clear liquid diet. No bowel movement yet. Patient has been afebrile. Laboratory data showed WBC 9.8 hemoglobin 13.0 and platelets 193, MCV 102.2, so dium 139 potassium 4.2 chloride 104 bicarb is 29 BUN 5 and creatinine 0.62 and A1c 4.8. B12 level is 1628. 06/03/2023 Patient is currently able to sit on the side of the bed. Awake alert and orient ed x3. No complaints of chest pain or shortness of breath. No complaints of abdominal pain. Patient did have a bowel movement today and yesterday evening. Diet advanced to low fiber diet. Blood sugar is fairly controlled. No cough or sputum production. No fevers no chills. 06/04/2023 Patient is currently resting in the bed. Awake alert and oriented. No complaints of chest pain. Mild shortness of breath. IV fluids on hold. Abdominal pain is controlled well. Otherwise patient is afebrile. Patient was disoriented and was pulling his lines this morning. Patient is able to tolerate oral diet. Did have a bowel movement today. No complaints of nausea or vomiting or diarrhea. Denied cough or sputum production. Denied dysuria. Laboratory data showed WBC increased to 16.23, platelets 250, hemoglobin 14.2 Sodium 141 potassium 3.8 chloride 101 bicarb is 26.8 BUN 6.20 creatinine 0.7 and blood sugar is 114 06/05/2023 Patient is currently lying in the bed. Awake alert and oriented x3. Denies any complaints of abdominal pain. Patient is able to pass flatus. Tolerating low- fat diet. No complaints of chest pain. Does have cough with light yellowish sputum production. No fever no chills. On room air. No headache or dizziness or lightheadedness. Patient is being continued on antibiotics, Zosyn and patient treatments and Symbicort inhaler. Laboratory showed WBC trending down to 11.48, hemoglobin 13.1 and platelets 237. BUN 7.7 creatinine 0.9 and blood sugar is 119. Participating in PT. 06/06/2023 Patient is sitting in a chair. Awake alert and oriented x3. Denies any complaints of chest pain or shortness of breath. Currently on room air. No complaints of worsening abdominal pain. No nausea or vomiting. Patient able to pass flatus and no bowel movement yet. Patient is being current Mcintosh catheter. No cough or sputum production. Breathing status is stable. Laboratory showed WBC remained at 11.6 and hemoglobin 13.4 platelets 254 BUN 7.9 and creatinine 0.7 and blood sugar is 119. Calcium 9.1. PT OT is following. 06/07. Patient seen and examined. Patient keen to go home. Denies any nausea or vomiting. Tolerating diet. REVIEW OF SYSTEMS: CONSTITUTIONAL: No fever, no malaise,. CARDIOVASCULAR: No chest pain, no palpitations, no syncope. PULMONARY: No shortness of breath, no cough, GASTROINTESTINAL: No diarrhea, no nausea, no vomiting, no abdominal pain. NEUROLOGICAL: No headaches, no weakness, PHYSICAL EXAMINATION: GENERAL: The patient is alert and oriented x3, not in any acute distress. Well developed, well nourished. HEENT: Pupils are round and equally reacting to light. EOMI. No scleral icterus. No conjunctival pallor. Normocephalic, atraumatic. No pharyngeal erythema. No thyromegaly. CARDIOVASCULAR: S1 and S2 present. No murmurs, rubs, or gallops. PULMONARY: Chest is clear to auscultation, no wheezing or crackles. ABDOMEN: No tenderness, surgical incision seen, drain in place MUSCULOSKELETAL: No joint swelling or deformity. EXTREMITIES: No cyanosis, clubbing, or pedal edema. NEUROLOGICAL: Gross neurological examination did not reveal any focal deficits. SKIN: No rashes. Assessment and plan Status post low anterior resection and repair of colovesical fistula. Postoperative day 5 Leukocytosis likely due to postsurgical inflammation. WBC 16-->11 today. Chronic atrial fibrillation with prior history of ablation and currently on anticoagulation with Xarelto. Diabetes type 2 [id number] History of frequent urinary tract infections. On nitrofurantoin prophylactic dos e. Hypertension Hyperlipidemia History of prostate cancer in 2001 status postradiation Prior history of smoking Asthma not in exacerbation Macrocytosis Monitor vital signs Monitor CBC Monitor CMP Patient is on Coreg 25 mg every morning and Cardizem 30 mg twice daily for rate control. Patient will be started back on Xarelto once cleared by surgery. Continue with insulin sliding scale. Continue with albuterol relation, Advair and Singulair. Surgery following Labs and medication were reviewed.. Continue same treatment. Continue with symptomatic treatment. Resume home medication. Monitor labs and vitals. DVT and GI prophylaxis. Further recommendations as per clinical course of the patient Dictation was produced using [employer] dictation software. please excuse any grammatical, word or spelling errors. Objective - Vital Signs Vital signs: Vital Signs Temp 97.7 F 06/07/23 11:25 Pulse 70 06/07/23 11:25 Resp 18 06/07/23 11:25 BP 153/89 06/07/23 11:25 Pulse Ox 95 06/07/23 11:25 FiO2 Intake & Output 06/06/23 06/07/23 06/07/23 18:59 06:59 18:59 Intake Total 450 Output Total 725 700 Balance -725 -250 Intake: Oral 450 Output: Urine 725 700 Other: Voiding Method Indwelling Catheter Indwelling Catheter Indwelling Catheter # Bowel Movements 1 - Labs CBC & Chem 7: 06/07/23 05:34 06/07/23 05:34 Labs: Abnormal Lab Results - Last 24 Hours (Table) 06/06/23 06/06/23 06/07/23 Range/Units 17:12 20:14 05:34 RBC 4.22 L (4.30-5.90) m/uL Neutrophils # 7.8 H (1.3-7.7) k/uL Creatinine (0.66-1.25) mg/dL Glucose (74-99) mg/dL POC Glucose (mg/dL) 112 H 145 H (70-110) mg/dL 06/07/23 06/07/23 Range/Units 05:34 12:06 RBC (4.30-5.90) m/uL Neutrophils # (1.3-7.7) k/uL Creatinine 0.56 L (0.66-1.25) mg/dL Glucose 116 H (74-99) mg/dL POC Glucose (mg/dL) 133 H (70-110) mg/dL
== END 2023-06-07 16:24 | disposition home health service (06) | DRG 654 ==
LOC: 2ORMAIN 06:51 → 5NMEDONC 14:01
PROVIDERS: ADMIT Surgery; ATTEND Surgery
PROC: 0TQB0ZZ Repair Bladder, Open Approach (ICD-10-PCS; principal; 2023-06-01 08:45)
PROC: 0DJD8ZZ Inspection of Lower Intestinal Tract, Via Natural or Artificial Opening Endoscopic (ICD-10-PCS; principal; 2023-06-01 08:45)
PROC: 0DTN0ZZ Resection of Sigmoid Colon, Open Approach (ICD-10-PCS; principal; 2023-06-01 08:45)
DX: N32.1 Vesicointestinal fistula (principal); I48.20 Chronic atrial fibrillation, unspecified; K57.32 Diverticulitis of large intestine without perforation or abscess without bleeding; N39.0 Urinary tract infection, site not specified; D72.829 Elevated white blood cell count, unspecified; D75.89 Other specified diseases of blood and blood-forming organs; E78.5 Hyperlipidemia, unspecified; E11.9 Type 2 diabetes mellitus without complications; Z79.01 Long term (current) use of anticoagulants; I10 Essential (primary) hypertension; J45.909 Unspecified asthma, uncomplicated; Z79.4 Long term (current) use of insulin; Z79.84 Long term (current) use of oral hypoglycemic drugs; Z79.899 Other long term (current) drug therapy; Z87.440 Personal history of urinary (tract) infections; Z85.46 Personal history of malignant neoplasm of prostate; Z87.891 Personal history of nicotine dependence; Z92.3 Personal history of irradiation
CPT/HCPCS: 80048; 82607; 82747; 83036; 85025; 88307; 94640; 94760

== ENCOUNTER → 2024-11-03 | Outpatient (CLI) | payer MEDICARE, OTHER ==
--- NOTE | 2024-11-03 13:29 | XR ---
EXAMINATION TYPE: XR lumbar spine 2 or 3V DATE OF EXAM: 11/03/2024 1:18 PM COMPARISON: CT 05/04/2023. CLINICAL INDICATION: Male, 78 years old with history of M54.50 LOW BACK PAIN; PHH, pain TECHNIQUE: XR lumbar spine 2 or 3V - Frontal, lateral and coned in L5-S1 lateral views of the spine. FINDINGS: No evidence of any acute osseous pathology. No evidence of loss of vertebral body height i s seen. There is normal alignment of the lumbar vertebral bodies. Scattered disc space narrowing. Mul tilevel marginal osteophyte formation throughout the visualized spine. There is facet joint arthropat hy throughout the spine. Scattered at least moderate neural foraminal stenosis. Right renal calculus measuring 8 mm. Atherosclerosis of the arterial vasculature. IMPRESSION: 1. No acute fracture. 2. Severe multilevel disc degeneration with severe facet arthropathy. [facility], , 11/03/2024 1:27 PM
== END | disposition home or self-care (01) ==
LOC: RADXRMAIN 12:58
PROVIDERS: ATTEND Internal Medicine
DX: M51.360 Other intervertebral disc degeneration, lumbar region with discogenic back pain only (principal); M47.816 Spondylosis without myelopathy or radiculopathy, lumbar region
CPT/HCPCS: 72100

== ENCOUNTER → 2024-11-11 | Outpatient (CLI) | payer MEDICARE, OTHER ==
--- NOTE | 2024-11-11 09:36 | US ---
EXAMINATION TYPE: US arterial LE single level DATE OF EXAM: 11/11/2024 9:26 AM COMPARISONS: None. CLINICAL INDICATION: Male, 79 years old with history of I73.9 PERIPHERAL VASCULAR DISEASE, UNSPECIFIE D; Weakness in legs when walking TECHNIQUE: Systolic pressures were taken of the upper and lower extremity arteries with ankle-brachia l indices and toe brachial indices calculated bilaterally. History of: Smoker: Yes Hypertension: Yes Diabetic: No Hyperlipidemia: Yes TIA/CVA: No Previous Vascular Surgery: No CAD: No TN: No Vascular Ulcers: No Claudication: No Gangrene: No FINDINGS: Doppler Waveforms: Right: Monophasic Left: Monophasic Brachial Artery systolic pressure: Right: 151 Left: Deferred due to nuclear medicine IV Posterior Tibial artery systolic pressure: Right: CNO Left: CNO Dorsalis Pedis artery systolic pressure: Right: CNO Left: CNO Toe artery systolic pressure: Right: XX Left: XX Ankle-Brachial Indices: Right: Unable to obtain. Left: Unable to obtain. Toe Brachial Indices: Right: XX Left: XX (Normal > 0.6; Mild 0.35 - 0.59, Moderate 0.12 - 0.34, Severe <0.12) IMPRESSION: Monophasic waveforms throughout both lower extremities with unable to obtain ankle brachial indices d ue to noncompressibility. Consider further evaluation with CTA runoff. [facility], , 11/11/2024 9:34 AM
== END | disposition home or self-care (01) ==
LOC: RADUSWWP 08:19
PROVIDERS: ATTEND Internal Medicine
DX: I73.9 Peripheral vascular disease, unspecified (principal); I10 Essential (primary) hypertension; E78.5 Hyperlipidemia, unspecified; Z87.891 Personal history of nicotine dependence
CPT/HCPCS: 93922

== ENCOUNTER → 2024-11-11 | Outpatient (CLI) | payer MEDICARE, OTHER ==
--- NOTE | 2024-11-11 14:05 | NM ---
EXAMINATION TYPE: NM DatScan Brain SPECT DATE OF EXAM: 11/11/2024 COMPARISON: NONE CLINICAL INDICATION: Male, 79 years old with history of G25.0 ESSENTIAL TREMORS; TECHNIQUE: 10 drops of Lugol's solution was administered 1 hour prior to injection as a thyroid bloc irvin agent. After the administration of 4.94 mCi I-123 Ioflupane DaTscan. Images obtained 3 hours p ost injection. SPECT images of the brain were acquired with axial and coronal reconstructions. FINDINGS: The uptake of radiotracer within the patient's caudate nuclei and putamina is symmetric and crescent- shaped. IMPRESSION: There is no scintigraphic evidence of a neurodegenerative disorder (Parkinson's disease, Multisystem atrophy or Progressive supranuclear palsy), as there is symmetric uptake of I-123 Ioflupan (DaTscan) within the caudate nuclei and putamina. [facility], , 11/11/2024 2:03 PM
== END | disposition home or self-care (01) ==
LOC: RADNMMAIN 08:40
PROVIDERS: ATTEND Internal Medicine
DX: G25.0 Essential tremor (principal)
CPT/HCPCS: 78803; A9584

== ENCOUNTER → 2024-11-21 | Outpatient (CLI) | payer MEDICARE, OTHER ==
[2024-11-21 08:43] LABS: African American GFR (CKD) >90 (>60 ml/min/1.73 sqM); Blood Urea Nitrogen 10 mg/dL (9-20); Non-African American GFR(CKD) 86 (>60 ml/min/1.73 sqM)
--- NOTE | 2024-11-21 11:35 | CT ---
EXAMINATION TYPE: CT angio abd aorta w/Runoff DATE OF EXAM: 11/21/2024 9:48 AM COMPARISON: Abdomen and pelvis 05/04/2023 CLINICAL INDICATION: Male, 79 years old with history of I73.9 peripheral artery disease; PHH, BILATER AL LEG PAIN, DIFFICULTY AMBULATING, R/O PAD TECHNIQUE: Noncontrast CT of the abdomen and pelvis. Postcontrast scanning continues down the bilater al lower extremities. Coronal and sagittal reconstructions. 3-D reconstructions generated on a [employer] workstation. Contrast used:100 ml mL of Isovue 370 with IV Contrast, CT DLP: 1366.70 mGycm, Automated exposure control for dose reduction was used. FINDINGS: CTA Abdomen and pelvis: Scattered moderate atherosclerotic calcification of the abdominal aorta and i liac arteries. Moderate atherosclerotic narrowing at the origin of the SMA and mild at the bilateral renal artery origins. SWETHA is patent. Mild fusiform ectasia distal abdominal aorta up to 2.5 cm. Atherosclerotic calcifications resulting in mild segmental stenoses within the common iliac arteries. CTA Lower extremities: Right: Scattered moderate atherosclerotic calcifications throughout the right lower extremity. There is segmental moderate stenosis lower MOVIE STAR. Focal severe stenosis proximal SFA. PFA is patent. Segmental moderate stenoses mid SFA. Atherosclerotic calcifications causing severe stenoses upper popliteal artery. Densely calcified trifurcation vessels. Peroneal artery no longer seen at the midcalf level. There appears to be runoff via the anterior tibi al artery and the peroneal artery which supplies the posterior tibial artery at the ankle. Left: Scattered moderate atherosclerotic calcifications throughout. MOVIE STAR is patent. Moderate stenosis proximal SFA and proximal PFA. Mild segmental stenoses throughout the SFA. Segmental mild to moderate stenoses throughout the popliteal artery. Densely calcified trifurcation vessels limiting assessment of patency. Posterior tibial artery no longer seen at the mid calf level. The peroneal artery appears to supply the posterior tibial artery at the ankle level. There appears t o be runoff via the anterior tibial and peroneal arteries. LOWER CHEST: No evidence of focal consolidation, pneumothorax or pleural effusion. LIVER: Unremarkable GALLBLADDER AND BILE DUCTS: Unremarkable. PANCREAS: Unremarkable. SPLEEN: Tiny inferior splenule ADRENAL GLANDS: Unremarkable. KIDNEYS AND URETERS: No evidence of hydronephrosis or renal calculus. The ureters are unremarkable. PELVIS BLADDER: Unremarkable REPRODUCTIVE: Surgical clips likely related to prior prostatectomy. ABDOMEN & PELVIS STOMACH AND BOWEL: No evidence of bowel obstruction. Normal appendix. Sigmoid diverticulosis. Staple line relating to prior resection and reanastomosis of the distal sigmoid colon. PERITONEUM: No evidence of pneumoperitoneum or free fluid. VASCULATURE: No evidence of aortic aneurysm. MUSCULOSKELETAL: Moderate to severe degenerative disc disease and facet arthropathy mid to lower lumb ar spine. LYMPH NODES: No gross evidence for lymphadenopathy. SOFT TISSUE/ABDOMINAL WALL: Unremarkable IMPRESSION: ANGIOGRAPHY: 1. Moderate atherosclerotic changes throughout the bilateral lower extremities. 2. On the right, calcified plaque contributes to severe stenosis proximal SFA and upper popliteal art kennedi. Moderate stenosis lower MOVIE STAR and segmentally within the mid SFA. 3. On the left, calcified plaque contributes to moderate stenosis proximal SFA and proximal PFA. Segm entally within the popliteal artery. 4. On both sides, there is dense calcification of the trifurcation vessels limiting assessment of pa tency. There is loss of enhancement of the bilateral posterior tibial arteries at the mid calf. Two-v essel runoff via the anterior tibial and peroneal arteries on both sides. ABDOMEN AND PELVIS: 5. Sigmoid diverticulosis with previous distal sigmoid surgery. [facility], , 11/21/2024 11:32 AM
== END | disposition home or self-care (01) ==
LOC: RADCTMAIN 08:00
PROVIDERS: ATTEND Internal Medicine
DX: K57.30 Diverticulosis of large intestine without perforation or abscess without bleeding (principal); I73.9 Peripheral vascular disease, unspecified
CPT/HCPCS: 82565; 84520; 75635; 36415; Q9967

== ENCOUNTER → 2024-12-01 | Outpatient (CLI) | payer MEDICARE, OTHER ==
[2024-12-01 15:23] LABS: HCT 43.4 % (39.6-50.0); HGB 13.8 g/dL (13.0-17.0); MCH 31.3 pg (27.0-32.0); MCHC 31.8 g/dL (32.0-37.0); MCV 98.4 FL (80.0-97.0); Mean Platelet Volume 10.2 FL (9.5-12.2); NRBC Per 100 WBC 0 X 10*3/uL (0.00-0.01); Platelet Count 233 X 10*3/uL (140-440); RBC 4.41 X 10*6/uL (4.40-5.60); RDW 12.7 % (11.5-14.5); WBC 8.09 X 10*3/uL (4.50-10.00)
[2024-12-01 15:47] LABS: Blood Urea Nitrogen 8.4 mg/dL (9.0-27.0); Carbon Dioxide 25.6 mmol/L (21.6-31.8); Chloride 107 mmol/L (96-109); Potassium 4.8 mmol/L (3.5-5.5); Sodium 144 mmol/L (135-145)
== END | disposition home or self-care (01) ==
LOC: LABPAT 12:01
PROVIDERS: ATTEND Internal Medicine Interventional Cardiology
DX: Z01.812 Encounter for preprocedural laboratory examination (principal); I70.213 Atherosclerosis of native arteries of extremities with intermittent claudication, bilateral legs
CPT/HCPCS: 80051; 82565; 84520; 85027

== ENCOUNTER 2024-12-03 11:29 | Day surgery (SDC) | payer MEDICARE, OTHER ==
[~2024-12-03 11:29] MED LIST changes: -ACETAMINOPHEN TAB 500 MG TAB PO PRN; +ALPRAZolam 0.5 MG TAB PO PRN; -DEXAMETHASONE SOD PHOSPHATE 4 MG/ML 1 ML VIAL IV ONE; +HEPARIN SODIUM,PORCINE (1 ML) 2,500 UNIT in SODIUM CHLORIDE 0.9% 250 ML IRRIGATION PRN; +HEPARIN SODIUM,PORCINE 10,000 UNIT in SODIUM CHLORIDE 0.9% 1,000 ML IRRIGATION PRN; -HEPARIN SODIUM,PORCINE/PF 5,000 UNIT/0.5 ML SYRINGE SQ PRN; -LIDOCAINE 1% (10MG/ML) FOR IV START INTRADERMA PRN; -ONDANSETRON 4 MG/2 ML VIAL IVP ONE; +ZOLPIDEM 5 MG TAB PO PRN; -metroNIDAZOLE-NS PMX 500 MG in SALINE 1 100ML.BAG IVPB PRN
[2024-12-03 12:09] LABS: Glucose,Whole Blood 113 mg/dL (70-110)
[2024-12-03] MEDS: IV FLUID CONTINUATION 1,000 ML IV ONE (12:15)
[2024-12-03] MEDS: EMPTY BAG 1 BAG with SODIUM CHLORIDE 0.9% 1,000 ML IV SCH (12:27)
[2024-12-03] MEDS: MIDAZOLAM 2 MG/2 ML VIAL IVP ONE (17:36)
[2024-12-03] MEDS: LIDOCAINE 1% INJ 10MG/ML (30 ML VIAL-PF) SQ ONE (17:36)
[2024-12-03] MEDS: CLOPIDOGREL 75 MG TAB PO ONE (18:00)
[2024-12-03] MEDS: HEPARIN SODIUM 1,000 UN/ML (10ML VL) IVP ONE (18:00)
[2024-12-03] MEDS ORDERED: ALPRAZolam 0.25 MG TAB PO PRN (18:53)
[2024-12-03] MEDS ORDERED: ACETAMINOPHEN TAB 500 MG TAB PO PRN (18:53)
[2024-12-03] MEDS ORDERED: allopurinoL 300 MG TAB PO PRN (18:53)
[2024-12-03] MEDS ORDERED: ALBUTEROL NEBULIZED 2.5 MG/3 ML INHALATION PRN (18:53)
[2024-12-03] MEDS ORDERED: SIMETHICONE 40 MG/0.6 ML DROPS 2,000 MG/30 ML BOTTLE PO PRN (18:53)
[2024-12-03] MEDS ORDERED: NALOXONE 0.4 MG/ML 1 ML VIAL IVP PRN (18:54)
[2024-12-03] MEDS: IOPAMIDOL-250 100ML BTL INTRAARTER ONE (19:22)
--- NOTE | 2024-12-03 19:32 | IR ---
EXAMINATION TYPE: IR stent intravas non coronary DATE OF EXAM: 12/03/2024 7:10 PM COMPARISON: Pre Operative Images if available both CT/MRI or plain film CLINICAL INDICATION: Male, 79 years old with history of right leg pain. 21.4min fluoro, 39.6Gycm2; TECHNIQUE: IR stent intravas non coronary, multiple fluoroscopic images provided for procedure. DAP: 39.6 mGym2 Gycm2 uGym2 cGycm2 or equivalent. FINDINGS: IMPRESSION: 1. Report was generated for administrative purposes only. 2. Please see the operative/procedural note for further details. [facility], , 12/03/2024 7:30 PM
[2024-12-03 20:04] LABS: Glucose,Whole Blood 84 mg/dL (70-110)
[2024-12-03] MEDS: SYMBICORT 160-4.5 MCG INHALER INHALATION SCH (20:48)
--- NOTE | 2024-12-03 21:20 | P.PCN ---
Date of Procedure: 12/03/24 Operative Findings: Percutaneous peripheral arterial intervention Performing physician Akil Mcclain MD Procedure performed 1 Successful balloon angioplasty and stenting of an occluded right popliteal artery with an excellent angiographic results and reduction of stenosis from 100% to 0% 2. Adjunctive use of IVUS and lithotripsy balloon and gradient measurements as well as atherectomy 3. Bilateral lower extremities angiogram 4. Ultrasound-guided access of the left common femoral artery Indication The patient is an 79-year-old gentleman who sees Dr. Banda on regular basis who was experiencing bilateral lower extremities discomfort worse on the right side than the right left side concerning for intermittent claudication and consistent with Luisa class II. He underwent a CTA of the abdomen and pelvis and lower extremities and that revealed critical disease involving the right SFA and intermediate bilateral iliac disease. He was brought today for an intervention Approach Left common femoral artery Complications None Level of sedation Moderate to sedation max of 76 minutes Procedure description After obtaining informed consent the patient was brought to the cardiac Simulation Developer. The left common femoral artery was cannulated using micropuncture technique under ultrasound guidance a micropuncture wire passed easily then I placed a 6 Latvian initially an 11 cm sheath and subsequently a 70 cm sheath. After that I did an angiogram of the distal abdominal aorta and bilateral iliac and that revealed what it seems to be initially severe disease involving the right SFA. I decided at that point to go up and over so I did exchange my 11 cm sheath into a 70 cm sheath using a 035 stiff Glidewire and going up and over using a rim catheter and stiff Glidewire. The sheath was positioned at the right common femoral artery. Right lower extremity angiogram was performed and showed intermediate disease involving the right SFA at the very proximal portion by IVUS was not flow-limiting with an area of stenosis of 76% but by gradient measurement was only intermediate with a gradient around 12 mm sherman. After that an angiogram also showed occluded right popliteal with a heavily calcified vessel and only single-vessel runoff with anterior tibial artery. At that point I decided to place the filter wire when I crossed the right popliteal. I crossed the [employer]ICE MARKUP CLERK of the right popliteal using a 014 wire and 018 catheter for support. Subsequently I did place a filter wire at the right popliteal below the knee just because the patient does have single-vessel runoff with anterior tibial artery. IVUS was performed and showed heavily calcified vessel. I did initially balloon angioplasty using 3 mm balloon before I did atherectomy using the Hawk 1 device. After that I did balloon angioplasty using 5 mm lithotripsy balloon with an angiogram after that showing a hazy area involving the right popliteal documented to be flow-limiting by IVUS with a large dissection. I decided to cover that with a stent so I deployed 6.0 x 140 mm Zilver PTX drug- coated stent which was postdilated using 5 mm balloon with an angiogram after that showing good angiographic results. For the lesion in the very proximal right SFA I did an IVUS which showed an area stenosis of 76% but the gradient measurement came to be only about 12 mm. At that point I decided to treat that with medications only. Then after that any degree of measurement across the right common iliac artery which has also an intermediate lesion and the gradient measurement came in to be only around 12 mm sherman as well. At that point I decided to exchange my long sheath into short sheath using a 035 stiff Glidewire before I did left lower extremity angiogram with injection of contrast through the sheath at the left common femoral artery. The procedure was completed with no complication Postprocedure management Dual antiplatelet therapy Aggressive cholesterol control Follow-up with the patient
[2024-12-03] MEDS: ALPRAZolam 0.25 MG TAB PO PRN (22:23)
[2024-12-03] MEDS: MONTELUKAST 10 MG TAB PO SCH (22:23)
[2024-12-03] MEDS: SODIUM CHLORIDE 0.9% 1,000 ML in EMPTY BAG 1 BAG IV SCH (22:23)
[2024-12-03] MEDS: DILTIAZEM ORAL 30 MG TAB PO SCH (22:23)
[2024-12-04 06:06] LABS: Glucose,Whole Blood 105 mg/dL (70-110)
[2024-12-04] MEDS: carvediloL 12.5 MG TAB PO SCH (06:22)
[2024-12-04 07:41] VITALS: BP 124/77; PULSE 54; RESP 16; TEMP 97.8
[2024-12-04] MEDS: CYANOCOBALAMIN 500 MCG TAB PO SCH (08:12)
[2024-12-04] MEDS: ATORVASTATIN 20 MG TAB PO SCH (08:12)
[2024-12-04] MEDS: CHOLECALCIFEROL 125 MCG (5000 IU) TABLET PO SCH (08:13)
[2024-12-04] MEDS: DAPAGLIFLOZIN PROPANEDIOL 5 MG TABLET PO SCH (08:13)
[2024-12-04] MEDS: ASPIRIN 81 MG PO SCH (08:13)
[2024-12-04] MEDS: VIT A,C & E-LUTEIN-MINERALS 1 EACH TAB PO SCH (08:13)
== END 2024-12-04 10:14 | disposition home or self-care (01) ==
LOC: CATHCVL 11:29 → 6NMEDSUR 15:31 → 3SCARD 19:20 → CATHCVL 12-04 10:14
PROVIDERS: ATTEND Internal Medicine Interventional Cardiology
DX: I70.213 Atherosclerosis of native arteries of extremities with intermittent claudication, bilateral legs (principal); I10 Essential (primary) hypertension; E78.5 Hyperlipidemia, unspecified; E11.9 Type 2 diabetes mellitus without complications; J45.909 Unspecified asthma, uncomplicated; I48.20 Chronic atrial fibrillation, unspecified; Z79.01 Long term (current) use of anticoagulants; Z79.899 Other long term (current) drug therapy; Z79.84 Long term (current) use of oral hypoglycemic drugs; Z79.51 Long term (current) use of inhaled steroids
CPT/HCPCS: 94640 ×2; 75625; 75710; 37252; 99152; 99153; C1894 ×3; C1725 ×2; C1769 ×3; C1714; C1753; C1884; C1874; C9767; J2250; J2003; J1644; Q9966

== ENCOUNTER 2024-12-18 15:01 | Inpatient (IN) | payer MEDICARE, OTHER ==
--- NOTE | 2024-12-18 16:35 | ED ---
General Adult HPI - General Chief complaint: Extremity Injury, Lower Stated complaint: R Leg Injury/sent by doc Time Seen by Provider: 12/18/24 15:20 Source: patient, RN notes reviewed, old records reviewed Mode of arrival: ambulatory Limitations: no limitations - History of Present Illness Initial comments: This is an 79-year-old male who presents to the emergency department complaining that he has had a cold foot. Patient states he had stents placed recently in his right leg by Dr. Mcclain he states 2 stents were placed. Patient states the other day he twisted his ankle and since then his foot seems to be getting colder he went to see Dr. Mcclain today and Dr. Mcclain could not get a pulse and thought there was some sort of decreased flow in the right lower leg. Patient will be brought in and placed on heparin per Dr. Mcclain's instructions and will be admitted. - Related Data Home Medications Medication Instructions Recorded Confirmed ALPRAZolam [Xanax] 0.25 mg PO BID PRN 05/28/23 12/03/24 Acetaminophen Tab [Tylenol] 500 mg PO BID PRN 05/28/23 12/03/24 Cholecalciferol [Vitamin D3 (25 125 mcg PO DAILY 05/28/23 12/03/24 Mcg = 1000 Iu)] Cyanocobalamin [Vitamin B-12] 500 mcg PO DAILY 05/28/23 12/03/24 Fluticasone Propion/Salmeterol 2 puff INHALATION BID 05/28/23 12/03/24 [Advair Hfa 230-21 Mcg Inhaler] Montelukast Sodium 10 mg PO HS 05/28/23 12/03/24 Rivaroxaban [Xarelto] 20 mg PO DAILY 05/28/23 12/03/24 Vit C/E/Zn/Coppr/Lutein/Zeaxan 1 tab PO DAILY 05/28/23 12/03/24 [Preservision Areds 2 Chew Tab] allopurinoL [Zyloprim] 300 mg PO DAILY PRN 05/28/23 12/03/24 carvediloL 25 mg PO QAM 05/28/23 12/03/24 dilTIAZem HCL 30 mg PO BID 05/28/23 12/03/24 Albuterol Inhaler [Ventolin Hfa 2 puff INHALATION RT-QID PRN 12/01/24 12/03/24 Inhaler] Empagliflozin [Jardiance] 10 mg PO DAILY 12/01/24 12/03/24 Rosuvastatin [Crestor] 10 mg PO DAILY 12/01/24 12/03/24 Simethicone 40 mg/0.6 ml Drops 80 mg PO QID PRN 12/01/24 12/03/24 [Mylicon Drops] Aspirin 81 mg PO DAILY 12/03/24 12/03/24 Allergies Allergy/AdvReac Type Severity Reaction Status Date / Time No Known Allergies Allergy Verified 12/18/24 15:19 Review of Systems ROS Statement: Those systems with pertinent positive or pertinent negative responses have been documented in the HPI. ROS Other: All systems not noted in ROS Statement are negative. Past Medical History Past Medical History: Atrial Fibrillation, Asthma, Cancer, Diabetes Mellitus, GERD/Reflux, Hearing Disorder / Deafness, Hyperlipidemia, Hypertension Additional Past Medical History / Comment(s): hx diverticulitis, prostate CA 2001-received radiation, has urinary leakage, right ear [place] History of Any Multi-Drug Resistant Organisms: None Reported Past Surgical History: Orthopedic Surgery, Prostate Surgery, Tonsillectomy Additional Past Surgical History / Comment(s): prostatectomy, May 2023 bowel surg, tosin elbow surg Past Anesthesia/Blood Transfusion Reactions: No Reported Reaction, Motion Sickness Additional Past Anesthesia/Blood Transfusion Reaction / Comment(s): no problems with prior blood transfusion 2001 Past Psychological History: No Psychological Hx Reported Smoking Status: Former smoker Past Alcohol Use History: None Reported Past Drug Use History: None Reported - Past Family History Father Family Medical History: Cancer Additional Family Medical History / Comment(s): prostate Mother Family Medical History: No Reported History General Exam - General Exam Comments Initial Comments: GENERAL: Patient is well-developed and well-nourished. Patient is nontoxic and well- hydrated and is in no acute distress. ENT: Neck is soft and supple. No significant lymphadenopathy is noted. Oropharynx is clear. Moist mucous membranes. Neck has full range of motion without eliciting any pain. EYES: The sclera were anicteric and conjunctiva were pink and moist. Extraocular movements were intact and pupils were equal round and reactive to light. Eyelids were unremarkable. PULMONARY: Unlabored respirations. Good breath sounds bilaterally. No audible rales rhonchi or wheezing was noted. CARDIOVASCULAR: There is a regular rate and rhythm without any murmurs gallops or rubs. SKIN: Skin is clear with no lesions or rashes and otherwise unremarkable. NEUROLOGIC: Patient is alert and oriented x3. Cranial nerves II through XII are grossly intact. Motor and sensory are also intact. Normal speech, volume and content. Symmetrical smile. MUSCULOSKELETAL: Normal extremities with adequate strength and full range of motion. Find a pul se in the patient's right foot and the foot was cold however the leg was not significantly colder than the left leg PSYCHIATRIC: Normal psychiatric evaluation. Limitations: no limitations Course Vital Signs 12/18/24 15:15 Temperature 97.4 F L Pulse Rate 75 Respiratory 18 Rate Blood Pressure 131/78 O2 Sat by Pulse 96 Oximetry Medical Decision Making - Medical Decision Making Was pt. sent in by a medical professional or institution ([facility] Sanchez, [facility], urgent care, hospital, or long-term...) When possible be specific @ -No Did you speak to anyone other than the patient for history (EMS, parent, family, police, friend...)? What history was obtained from this source @ -No Did you review nursing and triage notes (agree or disagree)? Why? @ -I reviewed and agree with nursing and triage notes Were old charts reviewed (outside hosp., previous admission, EMS record, old EKG, old radiological studies, urgent care reports/EKG's, long-term records)? Report findings @ -No old charts were reviewed Differential Diagnosis? @ -Arterial occlusion, DVT, fracture lower leg is not an all-inclusive list EKG interpreted by me (3pts min.). @ -As above X-rays interpreted by me (1pt min.). @ -None done CT interpreted by me (1pt min.). @ -None done U/S interpreted by me (1pt. min.). @ -None done What testing was considered but not performed or refused? (CT, X-rays, U/S, labs)? Why? @ -None What meds were considered but not given or refused? Why? @ -None Did you discuss the management of the patient with other professionals (professionals i.e. RACIEL Sanchez, T[facility]ER, lab, RT, psych nurse, 7th grade social studies teacher, director of maintenance, teacher, airline pilot/first officer, correctional case manager)? Give summary @ -I spoke with Dr. Skaf prior to the patient's arrival. When the patient was here and I want to admit the patient I admitted to Dr. Mesa and I spoke with him Was smoking cessation discussed for >3mins.? @ -No Was critical care preformed (if so, how long)? @ -35 minutes Were there social determinants of health that impacted care today? How? (Homelessness, low income, unemployed, alcoholism, drug addiction, transportation, low edu. Level, literacy, decrease access to med. care, group home, rehab)? @ -No Was there de-escalation of care discussed even if they declined (Discuss DNR or withdrawal of care, Hospice)? DNR status @ -No What co-morbidities impacted this encounter? (DM, HTN, Smoking, COPD, CAD, Cancer, CVA, ARF, Chemo, Hep., AIDS, mental health diagnosis, sleep apnea, mo rbid obesity)? @ -None Was patient admitted / discharged? Hospital course, mention meds given and route, prescriptions, significant lab abnormalities, going to OR and other pertinent info. @ -Baseline lab work was done on this patient patient was started on high-dose heparin. Patient will be admitted to Dr. Mesa and consulted to Dr. Mcclain Undiagnosed new problem with uncertain prognosis? @ -No Drug Therapy requiring intensive monitoring for toxicity (Heparin, Nitro, Insulin, Cardizem)? @ -No Were any procedures done? @ -No Diagnosis/symptom? @ -Arterial occlusion right leg Acute, or Chronic, or Acute on Chronic? @ -Acute on chronic Uncomplicated (without systemic symptoms) or Complicated (systemic symptoms)? @ -Complicated Side effects of treatment? @ -No Exacerbation, Progression, or Severe Exacerbation? @ -No Poses a threat to life or bodily function? How? (Chest pain, [place], [place], pneumonia, PE, COPD, DKA, ARF, appy, cholecystitis, CVA, Diverticulitis, Homicidal, Suicidal, threat to staff... and all critical care pts) @ -Yes this could lead to ischemia to the foot and eventually necrosis. Disposition Clinical Impression: Arterial occlusion Disposition: ADMITTED IP TO THIS [facility] Referrals: Froylan Mesa MD [Primary Care Provider] - 1-2 days Time of Disposition: 16:35
[2024-12-18 16:52] LABS: Basophils # (A) 0.05 10*3/uL (0.00-0.10); Basophils % (A) 0.5 %; Eosinophils # (A) 0.24 10*3/uL (0.04-0.35); Eosinophils % (A) 2.6 %; HCT 39.3 % (39.6-50.0); HGB 13.3 g/dL (13.0-17.0); Lymphocytes # (A) 2.44 10*3/uL (0.90-5.00); Lymphocytes % (A) 26.3 %; MCH 31.5 pg (27.0-32.0); MCHC 33.8 g/dL (32.0-37.0); MCV 93.1 fL (80.0-97.0); Mean Platelet Volume 9.5 fL (9.5-12.2); Monocytes # (A) 1.21 10*3/uL (0.20-1.00); Neutrophils # (A) 5.33 10*3/uL (1.80-7.70); Neutrophils % (A) 57.4 %; Platelet Count 236 10*3/uL (140-440); RBC 4.22 10*6/uL (4.40-5.60); RDW 12.5 % (11.5-14.5); WBC 9.29 10*3/uL (4.50-10.00)
[2024-12-18] MEDS: HEPARIN SOD,PORK IN 0.45% NACL 25,000 UNIT in 0.45% NACL 1 250ML.BAG IV SCH (16:53)
[2024-12-18] MEDS: HEPARIN SODIUM 1,000 UN/ML (10ML VL) IV ONE (16:53)
[2024-12-18] MEDS ORDERED: ALBUTEROL NEBULIZED 2.5 MG/3 ML INHALATION PRN (16:59)
[2024-12-18] MEDS ORDERED: allopurinoL 300 MG TAB PO PRN (16:59)
[2024-12-18] MEDS ORDERED: ALPRAZolam 0.25 MG TAB PO PRN (16:59)
[2024-12-18 17:05] LABS: INR 1.2 (<1.2); Partial Thromboplastin Time 27.5 sec (22.0-30.0); Prothrombin Time 13.3 sec (10.0-12.5)
[2024-12-18 17:07] LABS: ALT 14 U/L (4-49); AST 24 U/L (17-59); African American GFR (CKD) >90 (>60 ml/min/1.73 sqM); Albumin 3.8 g/dL (3.5-5.0); Alkaline Phosphatase 50 U/L (38-126); Anion Gap 7 mmol/L; Blood Urea Nitrogen 8 mg/dL (9-20); Calcium 9.8 mg/dL (8.4-10.2); Carbon Dioxide 25 mmol/L (22-30); Chloride 107 mmol/L (98-107); Glucose 106 mg/dL (74-99); Non-African American GFR(CKD) >90 (>60 ml/min/1.73 sqM); Potassium 4.2 mmol/L (3.5-5.1); Sodium 139 mmol/L (137-145); Total Bilirubin 0.7 mg/dL (0.2-1.3); Total Protein 6.3 g/dL (6.3-8.2)
[2024-12-18] MEDS: SODIUM CHLORIDE 0.9% 1,000 ML IV ONE (17:45)
[2024-12-18] MEDS: SYMBICORT 160-4.5 MCG INHALER INHALATION SCH (21:38)
[2024-12-18] MEDS: ATORVASTATIN 20 MG TAB PO SCH (22:03)
[2024-12-18] MEDS: metFORMIN 500 MG TAB PO SCH (22:03)
[2024-12-18] MEDS: DILTIAZEM ORAL 30 MG TAB PO SCH (22:03)
[2024-12-19 06:24] LABS: Glucose,Whole Blood 112 mg/dL (70-110)
[2024-12-19] MEDS: carvediloL 12.5 MG TAB PO SCH (06:26)
[2024-12-19] MEDS: EMPTY BAG 1 BAG with SODIUM CHLORIDE 0.9% 1,000 ML IV SCH (07:05)
[2024-12-19] MEDS: MONTELUKAST 10 MG TAB PO SCH (08:24)
[2024-12-19] MEDS: ONDANSETRON 4 MG/2 ML VIAL IVP PRN (08:24)
--- NOTE | 2024-12-19 09:39 | P.HPIM ---
History of Present Illness H&P Date: 12/19/24 Chief Complaint: Pulseless right foot HISTORY OF PRESENT ILLNESS: This is an 79-year-old male one of my new patient with a previous medical history significant for hypertension and hypertensive cardiovascular disease, mixed hyperlipidemia, diabetes mellitus type 2, history of peripheral artery occlusive disease, status post percutaneous transluminal balloon griselda oplasty with a stent placement that was done by Dr. Alvarado of the right popliteal artery 12/03/2024 with excellent angiographic result reducing the stenosis from 100% to 0%, patient apparently was doing fine up till few days ago when he fell down the stairs going down to the basement, and he twisted his right leg, and he ended up having significant pain on the right side of the foot with pale skin a pparently was seen by Dr. Alvarado in the office yesterday was sent to the ER for evaluation, he was started on heparin drip, he was admitted to the hospital for pulseless right foot, he was started on heparin drip, as well as IV fluid resuscitation, and he will be seen today for possible angiogram. Patient is laying down in bed in no apparent distress he is complain of some nausea but no vomiting, he did receive Zofran 4 mg IV push every 6 hours, will follow-up with the patient very closely, awaiting evaluation by cardiovascular medicine. REVIEW OF SYSTEMS: Constitutional: No documented fever, no chills, no night sweats. No weight change. No weakness, fatigue or lethargy. No daytime sleepiness. EENT: No headache. No blurred vision or double vision, no loss of vision. No loss of Hearing, no ringing in the ears, no dizziness. No nasal drainage or congestion. No epistaxis. No sore throat. Lungs: No shortness of breath, no cough, no sputum production. No wheezing. Reports dyspnea with activity. Cardiovascular: No chest pain, no lower extremity edema. No palpitations. No paroxysmal nocturnal dyspnea. No orthopnea. No lightheadedness or dizziness. No syncopal episodes. Abdominal: Reports abdominal pain. positive for nausea,no vomiting. No diarrhea. No constipation. No bloody or tarry stools reports loss of appetite. Genitourinary: No dysuria, increased frequency, urgency. No urinary retention. Musculoskeletal: No myalgias. No muscle weakness, no gait dysfunction, no frequent falls. No back pain. No neck pain. Integumentary: No wounds, no lesions. No rash or pruritus. No unusual bruising, significant pallor from the ankle to the right foot Neurologic: No aphasia. No facial droop. No change in mentation. No head injury. No headache. No paralysis. positive for paresthesia of the right foot Psychiatric: No depression. No anxiety. No mood swings. Endocrine: No abnormal blood sugars. No weight change. PAST MEDICAL HISTORY: Hypertension and hypertensive cardiovascular disease. Mixed hyperlipidemia. Paroxysmal atrial fibrillation. Diabetes mellitus type 2. PAD status post balloon angioplasty with a stent placement of the right popliteal artery 12/03/2024 Asthma. Gout. Prostate cancer. 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 Prostatectomy 2021. Tonsillectomy 1956. Colonoscopy 2022. Cataract surgery Balloon angioplasty with a stent placement of the right popliteal artery 12/03/2024. SOCIAL HISTORY: FAMILY HISTORY: Father at the age of 78 from neuropathy as well as peripheral artery occlusive disease complication. Mother at the age of 95 from heart attack, patient has 1 sister who is 83-year-old alive with history of CAD as well as eye cancer, patient has 2 son 57 and 61 with hypertension PHYSICAL EXAMINATION: General: 79-year-old male laying down in bed in no apparent distress. HEENT: Head is atraumatic, normocephalic, pupils were equal round reactive to light and recommendation, extraocular muscle movement were intact, sclera nonicteric, conjunctivae were pale, mucous membranes of the mouth are somewhat dry. Neck: Supple, no JVP, normal carotid upstroke bilaterally, no lymphadenopathy. Chest: Decreased breath sounds at the bases, few rhonchi, no expiratory wheezes, no chest wall tenderness, no intercostal retractions. Heart: First heart sound is normal, second heart sounds normal there is systolic ejection murmur 2/6 located left sternal border. Abdomen: Soft, nontender, nondistended, positive bowel sounds. Extremities: There is no edema no calf tenderness DP could not be palpated to the right foot , +1 to the left foot with significant pallor and tenderness to the right foot Neurologic examination: Patient is awake alert and oriented x3, cranial nerves II-12 appear grossly intact, muscle power were 5 out of 5 in upper extremities and 5 out of 5 in bilateral lower extremities, deep tendon reflexes normal bilaterally. ASSESSMENT AND PLAN: 1. Pulseless right foot in the patient with a prior history of PAD status post recent balloon angioplasty and stenting of the right popliteal artery. Continue patient on heparin drip, continue patient on nothing per mouth, continue IV fluid resuscitation in the form of normal saline at 75 cc an hour, continue pain control, continue antiemetic, continue conservative management, await evaluation by cardiovascular medicine Dr. Alvarado. 2. History of PAD status post recent angioplasty with stent placement of the ri t popliteal artery. Continue heparin drip for now, continue other treatment as in the previous paragraph. 3. Hypertension and hypertensive cardiovascular disease. Continue patient on carvedilol 25 mg once every day, Cardizem 30 mg orally twice every day, monitor the patient blood pressure very closely. 4. Mixed hyperlipidemia. Continue atorvastatin 20 mg once every day, monitor the patient with a panel, 5. Diabetes mellitus type 2. Discontinue metformin, start the patient on insulin sliding scale. Check BGM before each meal and bedtime. 6. Paroxysmal atrial fibrillation. Hold Xarelto for now continue with heparin drip for now, continue Cardizem 30 mg orally twice every day. 7. Mild intermittent asthma. Continue patient on albuterol as needed as well as Symbicort 160/4.5 mcg 2 puffs evaluation twice every day. 8. History of prostate cancer status post prostatectomy. 9. Coronary artery disease without unstable angina. Continue carvedilol 25 mg once every day, continue patient also on atorvastatin 20 mg once every day, monitor the patient's symptoms very closely. 10. Essential tremor. 11. Gout. Continue allopurinol 300 mg orally once every day. 12. DVT prophylaxis. Currently on heparin drip. 13. GI prophylaxis. Continue patient on Protonix 40 mg orally once every day. 14. Admit to inpatient. Estimated length of stay 2 midnights 15. Patient is full code. Past Medical History Past Medical History: Atrial Fibrillation, Asthma, Cancer, Diabetes Mellitus, GERD/Reflux, Hearing Disorder / Deafness, Hyperlipidemia, Hypertension Additional Past Medical History / Comment(s): hx diverticulitis, prostate CA 2001-received radiation, has urinary leakage, right ear [place] History of Any Multi-Drug Resistant Organisms: None Reported Past Surgical History: Orthopedic Surgery, Prostate Surgery, Tonsillectomy Additional Past Surgical History / Comment(s): prostatectomy, May 2023 bowel surg, tosin elbow surg, Popliteal stent placed 12/03/24 Past Anesthesia/Blood Transfusion Reactions: No Reported Reaction, Motion Sickness Additional Past Anesthesia/Blood Transfusion Reaction / Comment(s): no problems with prior blood transfusion 2001 Past Psychological History: No Psychological Hx Reported Smoking Status: Former smoker Past Alcohol Use History: None Reported Additional Past Alcohol Use History / Comment(s): quit smoking 1978, started smoking at age 14,<1ppd Past Drug Use History: None Reported - Past Family History Father Family Medical History: Cancer Additional Family Medical History / Comment(s): prostate Mother Family Medical History: No Reported History Medications and Allergies Home Medications Medication Instructions Recorded Confirmed Type ALPRAZolam [Xanax] 0.25 mg PO BID PRN 05/28/23 12/18/24 History Fluticasone Propion/Salmeterol 2 puff INHALATION RT-BID 05/28/23 12/18/24 History [Advair Hfa 230-21 Mcg Inhaler] Montelukast Sodium 10 mg PO DAILY 05/28/23 12/18/24 History Rivaroxaban [Xarelto] 20 mg PO DAILY 05/28/23 12/18/24 History allopurinoL [Zyloprim] 300 mg PO DAILY PRN 05/28/23 12/18/24 History carvediloL 25 mg PO DAILY 05/28/23 12/18/24 History dilTIAZem HCL 30 mg PO BID 05/28/23 12/18/24 History Albuterol Inhaler [Ventolin Hfa 2 puff INHALATION RT-Q4H PRN 12/01/24 12/18/24 History Inhaler] Rosuvastatin [Crestor] 10 mg PO HS 12/01/24 12/18/24 History Calcium Carbonate/Vitamin D3 1 tab PO DAILY 12/18/24 12/18/24 History [Calcium 600 mg-Vit D3 10 mcg (400 Unit)] Cholecalciferol [Vitamin D3 (125 125 mcg PO DAILY 12/18/24 12/18/24 History Mcg = 5000 Iu)] Cyanocobalamin (Vitamin B-12) 5,000 mcg PO DAILY 12/18/24 12/18/24 History [Vitamin B-12] Lutein/Zeaxanthin 25mg/5mg 1 tab PO DAILY 12/18/24 12/18/24 History Multivit,Calc,Min/FA/K1/Lycop 1 tab PO DAILY 12/18/24 12/18/24 History [One-A-Day Men's Complete Tab] metFORMIN HCL ER [Glucophage XR] 500 mg PO BID 12/18/24 12/18/24 History Allergies Allergy/AdvReac Type Severity Reaction Status Date / Time No Known Allergies Allergy Verified 12/18/24 16:27 Physical Exam Vitals: Vital Signs Temp Pulse Pulse Resp BP BP Pulse Ox 12/19/24 04:00 97.8 F 88 18 162/79 96 12/18/24 23:15 98.0 F 88 19 161/95 97 12/18/24 22:52 97.9 F 103 H 20 141/76 96 12/18/24 21:48 97.6 F 100 20 151/92 96 12/18/24 17:46 79 18 145/99 97 12/18/24 15:15 97.4 F L 75 18 131/78 96 Intake and Output 12/18/24 12/19/24 12/19/24 22:59 06:59 14:59 Intake Total 184.117 Balance 184.117 Intake: Intake, IV Titration 184.117 Amount Heparin Sod,Pork in 0.45% 184.117 NaCl 25,000 unit In 0.45 % NaCl 1 250ml.bag @ 18 UNITS/KG/HR 13.88 mls/hr IV .[id number] [facility] Rx#: [id number] Other: Voiding Method Toilet # Voids 2 1 Weight 77.111 kg 76.7 kg Results CBC & Chem 7: 12/18/24 16:47 12/18/24 16:47 Labs: Abnormal Lab Results - Last 24 Hours (Table) 12/18/24 12/18/24 12/18/24 Range/Units 16:47 16:47 16:47 RBC 4.22 L (4.40-5.60) 10*6/uL Hct 39.3 L (39.6-50.0) % Monocytes # 1.21 H (0.20-1.00) 10*3/uL PT 13.3 H (10.0-12.5) sec INR 1.2 H (<1.2) APTT (22.0-30.0) sec BUN 8 L (9-20) mg/dL Creatinine 0.60 L (0.66-1.25) mg/dL Glucose 106 H (74-99) mg/dL POC Glucose (mg/dL) (70-110) mg/dL 12/18/24 12/19/24 12/19/24 Range/Units 23:17 05:56 06:22 RBC (4.40-5.60) 10*6/uL Hct (39.6-50.0) % Monocytes # (0.20-1.00) 10*3/uL PT (10.0-12.5) sec INR (<1.2) APTT 75.4 H 78.7 H (22.0-30.0) sec BUN (9-20) mg/dL Creatinine (0.66-1.25) mg/dL Glucose (74-99) mg/dL POC Glucose (mg/dL) 112 H (70-110) mg/dL Thrombosis Risk Factor Assmnt - Choose All That Apply Any of the Below Risk Factors Present?: Yes Each Factor Represents 1 point: Obesity (BMI >25) Each Risk Factor Represents 3 Points: Age 75 years or older Thrombosis Risk Factor Assessment Total Risk Factor Score: 4 Thrombosis Risk Factor Assessment Level: Moderate Risk
--- NOTE | 2024-12-19 10:27 | P.CRDCN ---
History of Present Illness History of present illness: HISTORY OF PRESENT ILLNESS: This is a 79-year-old male with a past medical history significant for peripheral arterial disease, atrial fibrillation, diabetes, hypertension and hyperlipidemia. Patient follows in the office with Dr. Banda. We have been asked to see the patient in consultation for arterial occlusion. Patient examined at the bedside. Patient recently underwent angioplasty and stenting of occluded right popliteal artery on 12/03/[address] Mcclain. Patient presented to the cardiology office yesterday for a follow-up visit with Dr. Mcclain. The patient does report having a fall a couple days ago where he fell and twisted his right leg. Patient's leg was found to be cold and no pedal pulses were found. He was directed to come to the emergency room. Patient was found to have arterial occlusion and was started on IV heparin. He is scheduled to undergo lower extremity angiogram today with Dr. Mcclain REVIEW OF SYSTEMS: At the time of my exam: CONSTITUTIONAL: Denies fever or chills. HEENT: Denies blurred vision, vision changes, or eye pain. Denies hemoptysis CARDIOVASCULAR: Denies chest pain. Denies orthopnea. Denies PND. Denies palpitations RESPIRATORY: Denies shortness of breath. GASTROINTESTINAL: Denies abdominal pain. Denies nausea or vomiting. HEMATOLOGIC: Denies bleeding disorders. GENITOURINARY: Denies any blood in urine. SKIN: Denies pruitis. Denies rash. PHYSICAL EXAM: VITAL SIGNS: Reviewed. GENERAL: Well-developed in no acute distress. HEENT: Head is normocephalic. Pupils are equal, round. Sclerae anicteric. Mucous membranes of the mouth are moist. Neck supple. No JVD or thyromegaly LUNGS: Respirations even and unlabored. Lungs essentially clear to auscultation bilaterally. HEART: Irregular rate and rhythm. S1 and S2 heard. ABDOMEN: Soft. Nondistended. Nontender. EXTREMITIES: Normal range of motion. No clubbing or cyanosis. Right foot cool to touch with no palpable pedal pulses. NEUROLOGIC: Awake and alert. Oriented x 3. ASSESSMENT: Acute right lower extremity arterial occlusion Peripheral arterial disease with angioplasty and stenting of right popliteal artery, 12/03/2024 Permanent atrial fibrillation on Xarelto outpatient Hypertension Hyperlipidemia Diabetes PLAN: Hold Xarelto. Continue IV heparin Continue additional cardiac medications Patient scheduled for lower extremity angiogram today with Dr. Mcclain Further recommendations pending patient course Nurse practitioner note has been reviewed by physician. Signing provider agrees with the documented findings, assessment, and plan of care documented by MACHINE PRESERVATIVE FILLER as a scribe. Past Medical History Past Medical History: Atrial Fibrillation, Asthma, Cancer, Diabetes Mellitus, GERD/Reflux, Hearing Disorder / Deafness, Hyperlipidemia, Hypertension Additional Past Medical History / Comment(s): hx diverticulitis, prostate CA 2001-received radiation, has urinary leakage, right ear COUNCIL History of Any Multi-Drug Resistant Organisms: None Reported Past Surgical History: Orthopedic Surgery, Prostate Surgery, Tonsillectomy Additional Past Surgical History / Comment(s): prostatectomy, May 2023 bowel surg, tosin elbow surg, Popliteal stent placed 12/03/24 Past Anesthesia/Blood Transfusion Reactions: No Reported Reaction, Motion Sickness Additional Past Anesthesia/Blood Transfusion Reaction / Comment(s): no problems with prior blood transfusion 2001 Past Psychological History: No Psychological Hx Reported Smoking Status: Former smoker Past Alcohol Use History: None Reported Additional Past Alcohol Use History / Comment(s): quit smoking 1978, started smoking at age 14,<1ppd Past Drug Use History: None Reported - Past Family History Father Family Medical History: Cancer Additional Family Medical History / Comment(s): prostate Mother Family Medical History: No Reported History Medications and Allergies Home Medications Medication Instructions Recorded Confirmed Type ALPRAZolam [Xanax] 0.25 mg PO BID PRN 05/28/23 12/18/24 History Fluticasone Propion/Salmeterol 2 puff INHALATION RT-BID 05/28/23 12/18/24 History [Advair Hfa 230-21 Mcg Inhaler] Montelukast Sodium 10 mg PO DAILY 05/28/23 12/18/24 History Rivaroxaban [Xarelto] 20 mg PO DAILY 05/28/23 12/18/24 History allopurinoL [Zyloprim] 300 mg PO DAILY PRN 05/28/23 12/18/24 History carvediloL 25 mg PO DAILY 05/28/23 12/18/24 History dilTIAZem HCL 30 mg PO BID 05/28/23 12/18/24 History Albuterol Inhaler [Ventolin Hfa 2 puff INHALATION RT-Q4H PRN 12/01/24 12/18/24 History Inhaler] Rosuvastatin [Crestor] 10 mg PO HS 12/01/24 12/18/24 History Calcium Carbonate/Vitamin D3 1 tab PO DAILY 12/18/24 12/18/24 History [Calcium 600 mg-Vit D3 10 mcg (400 Unit)] Cholecalciferol [Vitamin D3 (125 125 mcg PO DAILY 12/18/24 12/18/24 History Mcg = 5000 Iu)] Cyanocobalamin (Vitamin B-12) 5,000 mcg PO DAILY 12/18/24 12/18/24 History [Vitamin B-12] Lutein/Zeaxanthin 25mg/5mg 1 tab PO DAILY 12/18/24 12/18/24 History Multivit,Calc,Min/FA/K1/Lycop 1 tab PO DAILY 12/18/24 12/18/24 History [One-A-Day Men's Complete Tab] metFORMIN HCL ER [Glucophage XR] 500 mg PO BID 12/18/24 12/18/24 History Allergies Allergy/AdvReac Type Severity Reaction Status Date / Time No Known Allergies Allergy Verified 12/18/24 16:27 Physical Exam Vitals: Vital Signs Temp Pulse Pulse Resp BP BP Pulse Ox 12/19/24 09:28 97.5 F L 79 18 140/78 96 12/19/24 08:00 97.5 F L 79 18 140/78 96 12/19/24 04:00 97.8 F 88 18 162/79 96 12/18/24 23:15 98.0 F 88 19 161/95 97 12/18/24 22:52 97.9 F 103 H 20 141/76 96 12/18/24 21:48 97.6 F 100 20 151/92 96 12/18/24 17:46 79 18 145/99 97 12/18/24 15:15 97.4 F L 75 18 131/78 96 Intake and Output 12/18/24 12/19/24 12/19/24 22:59 06:59 14:59 Intake Total 184.117 Balance 184.117 Intake: Intake, IV Titration 184.117 Amount Heparin Sod,Pork in 0.45% 184.117 NaCl 25,000 unit In 0.45 % NaCl 1 250ml.bag @ 18 UNITS/KG/HR 13.88 mls/hr IV .Q18H1M [facility] Rx#: [id number] Other: Voiding Method Toilet # Voids 2 1 Weight 77.111 kg 76.7 kg Results 12/18/24 16:47 12/18/24 16:47 Cardiac Enzymes 12/18/24 Range/Units 16:47 AST 24 (17-59) U/L Coagulation 12/18/24 12/18/24 12/19/24 Range/Units 16:47 23:17 05:56 PT 13.3 H (10.0-12.5) sec APTT 27.5 75.4 H 78.7 H (22.0-30.0) sec CBC 12/18/24 Range/Units 16:47 WBC 9.29 (4.50-10.00) 10*3/uL RBC 4.22 L (4.40-5.60) 10*6/uL Hgb 13.3 (13.0-17.0) g/dL Hct 39.3 L (39.6-50.0) % Plt Count 236 (140-440) 10*3/uL Comprehensive Metabolic Panel 12/18/24 Range/Units 16:47 Sodium 139 (137-145) mmol/L Potassium 4.2 (3.5-5.1) mmol/L Chloride 107 (98-107) mmol/L Carbon Dioxide 25 (22-30) mmol/L BUN 8 L (9-20) mg/dL Creatinine 0.60 L (0.66-1.25) mg/dL Glucose 106 H (74-99) mg/dL Calcium 9.8 (8.4-10.2) mg/dL AST 24 (17-59) U/L ALT 14 (4-49) U/L Alkaline Phosphatase 50 (38-126) U/L Total Protein 6.3 (6.3-8.2) g/dL Albumin 3.8 (3.5-5.0) g/dL Current Medications Generic Name Dose Route Start Last Admin Trade Name Freq PRN Reason Stop Dose Admin Albuterol Sulfate 2.5 mg 12/18/24 16:59 Albuterol Nebulized 2.5 Mg/3 Ml INHALATION RT-Q4H PRN Shortness Of Breath Allopurinol 300 mg 12/18/24 16:59 Allopurinol 300 Mg Tab PO DAILY PRN Gout Flare Alprazolam 0.25 mg 12/18/24 16:59 Alprazolam 0.25 Mg Tab PO BID PRN Anxiety Atorvastatin Calcium 20 mg 12/18/24 21:00 12/18/24 22:03 Atorvastatin 20 Mg Tab PO 20 mg HS [facility] Administration Budesonide/Formoterol Fumarate 2 puff 12/18/24 20:00 12/19/24 08:48 Symbicort 160-4.5 Mcg Inhaler INHALATION 2 puff RT-BID [facility] Administration Carvedilol 25 mg 12/19/24 07:30 12/19/24 06:26 Carvedilol 12.5 Mg Tab PO 25 mg AC-[id number] [facility] Administration Cholecalciferol 125 mcg 12/20/24 09:00 Cholecalciferol 125 Mcg (5000 Iu) Tablet PO DAILY [facility] Cyanocobalamin 5,000 mcg 12/20/24 09:00 Cyanocobalamin 500 Mcg Tab PO DAILY [facility] Diltiazem HCl 30 mg 12/18/24 21:00 12/19/24 08:24 Diltiazem Oral 30 Mg Tab PO 30 mg BID [facility] Administration Heparin Sodium/Sodium Chloride 250 mls @ 13.88 mls/hr 12/18/24 16:15 12/19/24 06:53 25,000 unit/ Sodium Chloride IV 14 units/kg/hr .Q18H1M [facility] 10.796 mls/hr Titration Protocol 18 UNITS/KG/HR Sodium Chloride 1,000 ml/ IV 1,000 mls @ 76.7 mls/hr 12/19/24 07:00 12/19/24 07:05 Solution IV 76.7 mls/hr .Q13H3M [facility] Administration 1 ML/KG/HR Insulin Human Lispro 0 unit 12/19/24 12:30 Insulin Lispro (Humalog) 100 Unit/Ml 10 Ml Vl SQ AC-TID [facility] Protocol Montelukast Sodium 10 mg 12/19/24 09:00 12/19/24 08:24 Montelukast 10 Mg Tab PO 10 mg DAILY [facility] Administration Multivitamins 1 each 12/20/24 09:00 Multivitamins, Thera 1 Each Tab PO DAILY [facility] Non-Formulary Medication 1 tab 12/20/24 09:00 Lutein/Zeaxanthin 25mg/5mg PO DAILY [facility] Ondansetron HCl 4 mg 12/19/24 08:10 12/19/24 08:24 Ondansetron 4 Mg/2 Ml Vial IVP 4 mg Q6HR PRN Administration Nausea And Vomiting Intake and Output 12/18/24 12/19/24 12/19/24 22:59 06:59 14:59 Intake Total 184.117 Balance 184.117 Intake: Intake, IV Titration 184.117 Amount Heparin Sod,Pork in 0.45% 184.117 NaCl 25,000 unit In 0.45 % NaCl 1 250ml.bag @ 18 UNITS/KG/HR 13.88 mls/hr IV .Q18H1M [facility] Rx#: [id number] Other: Voiding Method Toilet # Voids 2 1 Weight 77.111 kg 76.7 kg 12/18/24 16:47 12/18/24 16:47
[2024-12-19 11:11] LABS: Glucose,Whole Blood 117 mg/dL (70-110)
[2024-12-19] MEDS: INSULIN LISPRO (HumaLOG) 100 UNIT/ML 10 mL VL SQ SCH (11:59)
[2024-12-19] MEDS: IV FLUID CONTINUATION 1,000 ML IV ONE (12:30)
[2024-12-19] MEDS: MIDAZOLAM 2 MG/2 ML VIAL IVP ONE (13:00)
[2024-12-19] MEDS: LIDOCAINE 1% INJ 10MG/ML (20 ML MDV) SQ ONE (13:00)
[2024-12-19] MEDS: HEPARIN SODIUM 1,000 UN/ML (10ML VL) IVP ONE (13:08)
[2024-12-19] MEDS: CLOPIDOGREL 75 MG TAB PO ONE (13:37)
[2024-12-19] MEDS: ASPIRIN 325 MG TAB PO ONE (13:38)
[2024-12-19] MEDS ORDERED: NALOXONE 0.4 MG/ML 1 ML VIAL IVP PRN (13:44)
--- NOTE | 2024-12-19 13:49 | P.PCN ---
Date of Procedure: 12/19/24 Operative Findings: PERCUTANEOUS PERIPHERAL INTERVENTION Performing physician Akil Mcclain M.D. Procedure performed 1. Successful mechanical aspiration thrombectomy from the right popliteal artery using the Inari device 2. Successful balloon angioplasty of the right popliteal artery 3. IVUS of the right popliteal artery 4. Right lower extremity angiogram and left common femoral artery angiogram 5. Ultrasound-guided access of the left common femoral artery Indication Acute limb ischemia Approach Left common femoral artery Complications None Level of sedation Moderate with a sedation time of 42 minutes Procedure description After obtaining informed consent the patient was brought to the cardiac Bakery Team Member with the left common femoral artery was cannulated using micropuncture technique under ultrasound guidance a micropuncture wire passed easily then I placed a 7 [place] 70 cm sheath in the left common femoral artery. Subsequently I did advance a rim catheter to the distal aorta and then I advanced a wire to the right profunda. That was a stiff 035 wire. Subsequently the sheath was advanced over the wire and the catheter to the right common femoral artery. Right lower extremity angiogram was performed and showed occluded right popliteal which seems to be in-stent occlusion. I did cross the lesion using a 014 wire. Please note that anticoagulation was initiated before the wire was advanced. The patient was given heparin with continuous ACT monitoring. Subsequently I did advance a 1 4 wire and crossed acute total occlusion. The wire was advanced to the right anterior tibial artery. After that IVUS was performed and showed fresh thrombus involving the right popliteal artery in- stent. I did aspiration thrombectomy which was mechanical aspiration thrombectomy using the Inari with the extraction of fresh thrombus. Balloon angioplasty after that was performed using 5 mm balloon with final angiographic results appears to be excellent and the procedure was completed with no complication and I did exchange my 70 cm sheath into 11 cm sheath using 035 wire. Left common femoral artery angiogram was performed and the procedure was completed with no complication Postprocedure management 1. Dual antiplatelet therapy in addition to anticoagulation 2. Aggressive cholesterol control 3. Risk factors modification 4. Follow-up with the patient
[2024-12-19] MEDS: IOPAMIDOL-370 100ML BTL INJ ONE (13:53)
[2024-12-19 16:04] LABS: Glucose,Whole Blood 109 mg/dL (70-110)
[2024-12-19] MEDS: SODIUM CHLORIDE 0.9% 1,000 ML in EMPTY BAG 1 BAG IV SCH (17:14)
[2024-12-19] MEDS: ACETAMINOPHEN TAB 325 MG TAB PO PRN (17:16)
[2024-12-19] MEDS: traMADol 50 MG TAB PO PRN (19:43)
[2024-12-19 20:02] LABS: Glucose,Whole Blood 126 mg/dL (70-110)
[2024-12-20 06:16] LABS: Glucose,Whole Blood 99 mg/dL (70-110)
[2024-12-20 07:18] LABS: Basophils # (A) 0.04 10*3/uL (0.00-0.10); Basophils % (A) 0.6 %; Eosinophils # (A) 0.16 10*3/uL (0.04-0.35); Eosinophils % (A) 2.2 %; HCT 36.9 % (39.6-50.0); HGB 12.6 g/dL (13.0-17.0); Lymphocytes # (A) 1.44 10*3/uL (0.90-5.00); Lymphocytes % (A) 19.8 %; MCHC 34.1 g/dL (32.0-37.0); MCV 93.7 fL (80.0-97.0); Mean Platelet Volume 9.6 fL (9.5-12.2); Monocytes # (A) 1.05 10*3/uL (0.20-1.00); Monocytes % (A) 14.4 %; Neutrophils # (A) 4.57 10*3/uL (1.80-7.70); Neutrophils % (A) 62.9 %; Platelet Count 205 10*3/uL (140-440); RBC 3.94 10*6/uL (4.40-5.60); RDW 12.5 % (11.5-14.5); WBC 7.27 10*3/uL (4.50-10.00)
[2024-12-20 07:45] LABS: ALT 12 U/L (4-49); AST 20 U/L (17-59); African American GFR (CKD) >90 (>60 ml/min/1.73 sqM); Albumin 3.4 g/dL (3.5-5.0); Alkaline Phosphatase 52 U/L (38-126); Anion Gap 8 mmol/L; Blood Urea Nitrogen 7 mg/dL (9-20); Calcium 9.5 mg/dL (8.4-10.2); Carbon Dioxide 24 mmol/L (22-30); Chloride 108 mmol/L (98-107); Glucose 111 mg/dL (74-99); Magnesium 1.2 mg/dL (1.6-2.3); Non-African American GFR(CKD) >90 (>60 ml/min/1.73 sqM); Potassium 3.9 mmol/L (3.5-5.1); Sodium 140 mmol/L (137-145); Total Bilirubin 0.9 mg/dL (0.2-1.3); Total Protein 5.8 g/dL (6.3-8.2)
[2024-12-20] MEDS: LUTEIN PO SCH (09:17)
[2024-12-20] MEDS: ZEAXANTHIN PO SCH (09:17)
[2024-12-20] MEDS: MULTIVITAMINS, THERA 1 EACH TAB PO SCH (09:37)
[2024-12-20] MEDS: CLOPIDOGREL 75 MG TAB PO SCH (09:37)
[2024-12-20] MEDS: CYANOCOBALAMIN 500 MCG TAB PO SCH (09:37)
[2024-12-20] MEDS: ASPIRIN 325 MG TAB PO SCH (09:37)
[2024-12-20] MEDS: CHOLECALCIFEROL 125 MCG (5000 IU) TABLET PO SCH (09:38)
[2024-12-20 10:57] VITALS: TEMP 97.7
[2024-12-20 11:27] LABS: Glucose,Whole Blood 111 mg/dL (70-110)
[2024-12-20 12:15] VITALS: BP 157/85; PULSE 82; RESP 18
--- NOTE | 2024-12-20 12:24 | P.DS ---
Providers Date of admission: 12/18/24 16:38 Expected date of discharge: 12/20/24 Attending physician: Froylan Mesa Consults: 12/18/24 16:53 Consult Physician Urgent Consulting Provider: Akil Mcclain Consult Reason/Comments: Arterial occlusion Do you want consulting provider notified?: Yes Primary care physician: Froylan Mesa Hospital Course: Discharge diagnoses; 1. Pulseless right foot in the patient with a prior history of PAD status post recent balloon angioplasty and stenting of the right popliteal artery. Status post percutaneous peripheral angiogram with Successful mechanical aspiration thrombectomy from the right popliteal artery using the Inari device, Successful balloon angioplasty of the right popliteal artery. Cardiology recommend dual antiplatelet therapy in addition to Xarelto. 2. History of PAD status post recent angioplasty with stent placement of the right popliteal artery. Continue dual antiplatelet therapy in addition to Xarelto 3. Hypertension and hypertensive cardiovascular disease. Continue patient on carvedilol 25 mg once every day, Cardizem 30 mg orally twice every day 4. Mixed hyperlipidemia. Continue atorvastatin 20 mg once every day 5. Diabetes mellitus type 2. Resume home meds 6. Paroxysmal atrial fibrillation. Resume Xarelto 7. Mild intermittent asthma. Continue patient on albuterol as needed as well as Symbicort 160/4.5 mcg 2 puffs evaluation twice every day. 8. History of prostate cancer status post prostatectomy. 9. Coronary artery disease without unstable angina. Continue carvedilol 25 mg once every day, continue patient also on atorvastatin 20 mg once every day, monitor the patient's symptoms very closely. 10. Essential tremor. 11. Gout. Hospital course; 79-year-old male one of my new patient with a previous medical history significant for hypertension and hypertensive cardiovascular disease, mixed hyperlipidemia, diabetes mellitus type 2, history of peripheral artery occlusive disease, status post percutaneous transluminal balloon angioplasty with a stent placement that was done by Dr. Alvarado of the right popliteal artery 12/03/2024 with excellent angiographic result reducing the stenosis from 100% to 0%, patient apparently was doing fine up till few days ago when he fell down the stairs going down to the basement, and he twisted his right leg, and he ended up having significant pain on the right side of the foot with pale skin apparently was seen by Dr. Alvarado in the office yesterday was sent to the ER for evaluation, he was started on heparin drip, he was admitted to the hospital for pulseless right foot, he was started on heparin drip, as well as IV fluid resuscitation, and he will be seen today for possible angiogram. Patient underwent percutaneous peripheral angiogram with Successful mechanical aspiration thrombectomy from the right popliteal artery using the Inari device, Successful balloon angioplasty of the right popliteal artery. Postoperatively patient is doing well. Cardiology recommended starting patient on aspirin, Plavix, Xarelto. Patient to follow-up outpatient with cardiology PHYSICAL EXAMINATION: GENERAL: The patient is alert and oriented x3, not in any acute distress. Well developed, well nourished. HEENT: Pupils are round and equally reacting to light. EOMI. No scleral icterus. No conjunctival pallor. Normocephalic, atraumatic. No pharyngeal erythema. No thyromegaly. CARDIOVASCULAR: S1 and S2 present. No murmurs, rubs, or gallops. PULMONARY: Chest is clear to auscultation, no wheezing or crackles. ABDOMEN: Soft, nontender, nondistended, normoactive bowel sounds. No palpable organomegaly. MUSCULOSKELETAL: No joint swelling or deformity. EXTREMITIES: No cyanosis, clubbing, or pedal edema. NEUROLOGICAL: Gross neurological examination did not reveal any focal deficits. SKIN: No rashes. Dictation was produced using [employer] dictation software. please excuse any grammatical, word or spelling errors. Patient Condition at Discharge: Fair Plan - Discharge Summary Discharge Rx Participant: Yes New Discharge Prescriptions: New Aspirin 81 mg PO DAILY #0 tab Clopidogrel [Plavix] 75 mg PO DAILY #0 tab Continue Montelukast Sodium 10 mg PO DAILY Fluticasone Propion/Salmeterol [Advair Hfa 230-21 Mcg Inhaler] 2 puff INHALATION RT-BID carvediloL 25 mg PO DAILY Albuterol Inhaler [Ventolin Hfa Inhaler] 2 puff INHALATION RT-Q4H PRN PRN Reason: Shortness Of Breath Rosuvastatin [Crestor] 10 mg PO HS Cholecalciferol [Vitamin D3 (125 Mcg = 5000 Iu)] 125 mcg PO DAILY Cyanocobalamin (Vitamin B-12) [Vitamin B-12] 5,000 mcg PO DAILY metFORMIN HCL ER [Glucophage XR] 500 mg PO BID allopurinoL [Zyloprim] 300 mg PO DAILY PRN PRN Reason: Gout Flare ALPRAZolam [Xanax] 0.25 mg PO BID PRN PRN Reason: Anxiety dilTIAZem HCL 30 mg PO BID Rivaroxaban [Xarelto] 20 mg PO DAILY Lutein/Zeaxanthin 25mg/5mg 1 tab PO DAILY Calcium Carbonate/Vitamin D3 [Calcium 600 mg-Vit D3 10 mcg (400 Unit)] 1 tab PO DAILY Multivit,Calc,Min/FA/K1/Lycop [One-A-Day Men's Complete Tab] 1 tab PO DAILY Discharge Medication List ALPRAZolam [Xanax] 0.25 mg PO BID PRN 05/28/23 [History] Fluticasone Propion/Salmeterol [Advair Hfa 230-21 Mcg Inhaler] 2 puff INHALATION RT-BID 05/28/23 [History] Montelukast Sodium 10 mg PO DAILY 05/28/23 [History] Rivaroxaban [Xarelto] 20 mg PO DAILY 05/28/23 [History] allopurinoL [Zyloprim] 300 mg PO DAILY PRN 05/28/23 [History] carvediloL 25 mg PO DAILY 05/28/23 [History] dilTIAZem HCL 30 mg PO BID 05/28/23 [History] Albuterol Inhaler [Ventolin Hfa Inhaler] 2 puff INHALATION RT-Q4H PRN 12/01/24 [History] Rosuvastatin [Crestor] 10 mg PO HS 12/01/24 [History] Calcium Carbonate/Vitamin D3 [Calcium 600 mg-Vit D3 10 mcg (400 Unit)] 1 tab PO DAILY 12/18/24 [History] Cholecalciferol [Vitamin D3 (125 Mcg = 5000 Iu)] 125 mcg PO DAILY 12/18/24 [History] Cyanocobalamin (Vitamin B-12) [Vitamin B-12] 5,000 mcg PO DAILY 12/18/24 [History] Lutein/Zeaxanthin 25mg/5mg 1 tab PO DAILY 12/18/24 [History] Multivit,Calc,Min/FA/K1/Lycop [One-A-Day Men's Complete Tab] 1 tab PO DAILY 12/18/24 [History] metFORMIN HCL ER [Glucophage XR] 500 mg PO BID 12/18/24 [History] Aspirin 81 mg PO DAILY #0 tab 12/20/24 [Rx] Clopidogrel [Plavix] 75 mg PO DAILY #0 tab 12/20/24 [Rx] Follow up Appointment(s)/Referral(s): Froylan Mesa MD [Primary Care Provider] - 1-2 days Akil Mcclain MD [STAFF PHYSICIAN] - 1 Week Discharge Disposition: HOME SELF-CARE
--- NOTE | 2024-12-20 12:59 | P.PN ---
Subjective HISTORY OF PRESENT ILLNESS: This is a 79-year-old male with a past medical history significant for peripheral arterial disease, atrial fibrillation, diabetes, hypertension and hyperlipidemia. Patient follows in the office with Dr. Banda. We have been asked to see the patient in consultation for arterial occlusion. Patient examined at the bedside. Patient recently underwent angioplasty and stenting of occluded right popliteal artery on 12/03/[address] Mcclain. Patient presented to the cardiology office yesterday for a follow-up visit with Dr. Mcclain. The patient does report having a fall a couple days ago where he fell and twisted his right leg. Patient's leg was found to be cold and no pedal pulses were found. He was directed to come to the emergency room. Patient was found to have arterial occlusion and was started on IV heparin. He is scheduled to undergo lower extremity angiogram today with Dr. Mcclain 12/20/2024 Patient is status post mechanical aspiration thrombectomy and balloon angioplasty of right popliteal artery. Patient is feeling better this morning. Patient with palpable pulses. He denies any chest pain or pressure. Denies shortness of breath. PHYSICAL EXAM: VITAL SIGNS: Reviewed. GENERAL: Well-developed in no acute distress. HEENT: Head is normocephalic. Pupils are equal, round. Sclerae anicteric. Mucous membranes of the mouth are moist. Neck supple. No JVD or thyromegaly LUNGS: Respirations even and unlabored. Lungs essentially clear to auscultation bilaterally. HEART: Irregular rate and rhythm. S1 and S2 heard. ABDOMEN: Soft. Nondistended. Nontender. EXTREMITIES: Normal range of motion. No clubbing or cyanosis. Right foot cool to touch with no palpable pedal pulses. NEUROLOGIC: Awake and alert. Oriented x 3. ASSESSMENT: Acute right lower extremity arterial occlusion Peripheral arterial disease with angioplasty and stenting of right popliteal artery, 12/03/2024 Permanent atrial fibrillation on Xarelto outpatient Hypertension Hyperlipidemia Diabetes PLAN: Continue dual antiplatelet therapy with aspirin and Plavix Resume Xarelto. Decrease dosage to 15 mg due to dual antiplatelet therapy Continue additional cardiac medications Patient may be discharged home from a cardiac standpoint follow-up in the office with Dr. Mcclain Nurse practitioner note has been reviewed by physician. Signing provider agrees with the documented findings, assessment, and plan of care documented by POST OFFICE MARKUP CLERK as a scribe. Objective - Vital Signs Vital signs: Vital Signs Temp 97.7 F 12/20/24 09:35 Pulse 82 12/20/24 11:30 Resp 18 12/20/24 11:30 BP 157/85 12/20/24 11:30 Pulse Ox 97 12/20/24 11:30 FiO2 Intake & Output 12/19/24 12/20/24 12/20/24 18:59 06:59 18:59 Intake Total 1326.88 Balance 1326.88 Weight 75.2 kg Intake: IV 150 Intake, IV Titration 954.88 Amount Heparin Sod,Pork in 0.45% 54.88 NaCl 25,000 unit In 0.45 % NaCl 1 250ml.bag @ 18 UNITS/KG/HR 13.88 mls/hr IV .Q18H1M [facility] Rx#: [id number] Sodium Chloride 0.9% 1, 900 000 ml In Empty Bag 1 bag @ 75 mls/hr IV .[id number] [facility] Rx#:[id number] Oral 222 Other: Voiding Method Toilet # Voids 1 3 - Labs CBC & Chem 7: 12/20/24 06:59 12/20/24 06:59 Labs: Abnormal Lab Results - Last 24 Hours (Table) 12/19/24 12/20/24 12/20/24 Range/Units 20:00 06:59 06:59 RBC 3.94 L (4.40-5.60) 10*6/uL Hgb 12.6 L (13.0-17.0) g/dL Hct 36.9 L (39.6-50.0) % Monocytes # 1.05 H (0.20-1.00) 10*3/uL Chloride 108 H (98-107) mmol/L BUN 7 L (9-20) mg/dL Creatinine 0.62 L (0.66-1.25) mg/dL Glucose 111 H (74-99) mg/dL POC Glucose (mg/dL) 126 H (70-110) mg/dL Magnesium 1.2 L (1.6-2.3) mg/dL Total Protein 5.8 L (6.3-8.2) g/dL Albumin 3.4 L (3.5-5.0) g/dL 12/20/24 Range/Units 11:25 RBC (4.40-5.60) 10*6/uL Hgb (13.0-17.0) g/dL Hct (39.6-50.0) % Monocytes # (0.20-1.00) 10*3/uL Chloride (98-107) mmol/L BUN (9-20) mg/dL Creatinine (0.66-1.25) mg/dL Glucose (74-99) mg/dL POC Glucose (mg/dL) 111 H (70-110) mg/dL Magnesium (1.6-2.3) mg/dL Total Protein (6.3-8.2) g/dL Albumin (3.5-5.0) g/dL
[2024-12-20] MEDS ORDERED: RIVAROXABAN 15 MG TAB PO SCH (17:30)
[2024-12-21] MEDS ORDERED: ASPIRIN 81 MG PO SCH (09:00)
--- NOTE | 2024-12-22 17:46 | IR ---
EXAMINATION TYPE: IR clam dredge boat captain femoral popliteal DATE OF EXAM: 12/22/2024 3:16 PM COMPARISON: Pre Operative Images if available both CT/MRI or plain film CLINICAL INDICATION: Male, 79 years old with history of pvd right distal sfa, recent fall on knee, fl uoro 11.6 min; TECHNIQUE: IR clam dredge boat captain femoral popliteal, multiple fluoroscopic images provided for procedure. DAP: 11.0 mGym2 Gycm2 uGym2 cGycm2 or equivalent. FINDINGS: IMPRESSION: 1. Report was generated for administrative purposes only. 2. Please see the operative/procedural note for further details. [facility], , 12/22/2024 5:44 PM
== END 2024-12-20 12:49 | disposition home or self-care (01) | DRG 271 ==
LOC: EC 15:01 → 3SCARD 16:38
PROVIDERS: ADMIT Internal Medicine; ATTEND Internal Medicine
PROC: B41G1ZZ Fluoroscopy of Left Lower Extremity Arteries using Low Osmolar Contrast (ICD-10-PCS; 2024-12-19)
PROC: B41F1ZZ Fluoroscopy of Right Lower Extremity Arteries using Low Osmolar Contrast (ICD-10-PCS; 2024-12-19)
PROC: 04CM3ZZ Extirpation of Matter from Right Popliteal Artery, Percutaneous Approach (ICD-10-PCS; principal; 2024-12-19 12:00)
PROC: 047M3ZZ Dilation of Right Popliteal Artery, Percutaneous Approach (ICD-10-PCS; 2024-12-19 12:00)
PROC: B44FZZ3 Ultrasonography of Right Lower Extremity Arteries, Intravascular (ICD-10-PCS; 2024-12-19 12:00)
DX: T82.856A Stenosis of peripheral vascular stent, initial encounter (principal); I48.21 Permanent atrial fibrillation; E11.51 Type 2 diabetes mellitus with diabetic peripheral angiopathy without gangrene; E78.2 Mixed hyperlipidemia; G25.0 Essential tremor; I70.221 Atherosclerosis of native arteries of extremities with rest pain, right leg; I11.9 Hypertensive heart disease without heart failure; J45.20 Mild intermittent asthma, uncomplicated; I25.10 Atherosclerotic heart disease of native coronary artery without angina pectoris; M10.9 Gout, unspecified; Z85.46 Personal history of malignant neoplasm of prostate; Z90.79 Acquired absence of other genital organ(s); Z79.01 Long term (current) use of anticoagulants; Z79.82 Long term (current) use of aspirin; Z87.891 Personal history of nicotine dependence; Z79.899 Other long term (current) drug therapy; Z79.84 Long term (current) use of oral hypoglycemic drugs
CPT/HCPCS: 36415; 37184; 37224; 75710; 80053; 83735; 85025; 85610; 85730; 94640; 96365; 96366; 99291